=== PATIENT | male | born 1930 | race Caucasian/White ===

== ENCOUNTER 2020-01-25 11:03 | Inpatient (IN) | payer OTHER ==
[~2020-01-25] VITALS: Ht 172.7 cm; Wt 79.0 kg
[2020-01-25] MEDS ORDERED: SODIUM CHLORIDE 0.9% 1,000 ML IV ONE ×2 (11:30)
[2020-01-25] MEDS ORDERED: PANTOPRAZOLE 40 MG/10 ML VIAL INJ IV ONE ×2 (11:30→13:00)
[2020-01-25 11:44] LABS: Basophils # (auto) 0 10 ^3/uL (0-0.2); Basophils % (auto) 0.2 % (0.0-2.0); Eosinophils # (auto) 0.1 10 ^3/uL (0-0.8); Eosinophils % (auto) 1.4 % (0.0-7.0); Hemoglobin 11.2 g/dL (13.5-17.5); Lymphocytes # (auto) 0.9 10 ^3/uL (0.4-5.4); Mean Corpuscular Hemoglobin 32.4 pg (28.0-32.0); Mean Corpuscular Hgb Conc. 32.8 g/dL (32.0-36.0); Mean Corpuscular Volume 98.8 fL (80.0-100.0); Monocytes # (auto) 0.6 10 ^3/uL (0-1.3); Monocytes % (auto) 7.6 % (0.0-12.0); Neutrophils # (auto) 5.8 10 ^3/uL (1.6-8.6); Neutrophils % (auto) 78.8 % (37.0-80.0); Platelet Count (auto) 168 10^3/uL (140-450); Red Blood Cells 3.44 10^6/uL (4.5-5.90); Red Cell Distribution Width 13.4 % (11.8-14.3); White Blood Cell 7.4 10^3/uL (4.4-10.8)
[2020-01-25 11:59] LABS: INR 1.06 (0.9-1.15); Partial Thromboplastin Time 25.4 sec (23.0-31.2)
[2020-01-25 12:04] LABS: Albumin 2.7 g/dL (3.4-5.0); BUN/Creatinine Ratio 17.6; Calcium 7.6 mg/dL (8.5-10.1); Potassium 4.4 mmol/L (3.5-5.1)
[2020-01-25 12:07] LABS: Bilirubin, Total 0.3 mg/dL (0.2-1.0); Total Protein 5.6 g/dL (6.4-8.2)
[2020-01-25] MEDS ORDERED: LACTULOSE 20Gm/30ML SOLN PO PRN (13:00)
[2020-01-25] MEDS ORDERED: ONDANSETRON HCL 4 MG/2 ML VIAL IV PRN (13:00)
[2020-01-25] MEDS ORDERED: NITROGLYCERIN 0.4 MG SL TAB SL PRN (13:00)
[2020-01-25] MEDS ORDERED: MORPHINE SULF INJ 2 MG/ML SYRINGE 1ML IV PRN ×2 (13:00)
[2020-01-25] MEDS ORDERED: traMADol HCL 50 MG TAB PO PRN ×2 (13:00→13:30)
[2020-01-25] MEDS ORDERED: ACETAMINOPHEN 500 MG TAB PO PRN (13:00)
[2020-01-25] MEDS ORDERED: GOLYTELY 4L KIT PO ONE (14:45)
[2020-01-25] MEDS: SODIUM CHLORIDE 0.9% 1,000 ML IV SCH ×2 (15:25→23:11)
[2020-01-25] MEDS ORDERED: METO25TA36 PO (15:46)
[2020-01-25] MEDS ORDERED: LATA0.0019 EACHEYE (15:46)
[2020-01-25] MEDS ORDERED: ASPI-543 PO (15:46)
[2020-01-25] MEDS ORDERED: EZET10TA22 PO (15:46)
[2020-01-25 17:00] VITALS: BP 139/94
[2020-01-25 18:21] LABS: Hematocrit 38.2 % (41.0-53.0); Hemoglobin 12.6 g/dL (13.5-17.5)
--- NOTE | 2020-01-25 19:30 | NUR ---
Opening Shift Note Assumed care of patient, awake and alert. No S/S of distress/SOB or pain. Pt made aware of NPO status after midnight tonight for colonoscopy tomorrow. Safety measures in place, bed in lowest position, bed rails raised x2, call light within reach. All questions and concerns addressed at this time. Instructed on POC and to call for assist PRN, will continue to monitor for changes Q1hr and PRN.
[2020-01-25] MEDS: PANTOPRAZOLE 40 MG TAB PO SCH (22:09)
[2020-01-25 23:13] VITALS: BP 129/79
[2020-01-26 01:00] LABS: Hematocrit 31.6 % (41.0-53.0); Hemoglobin 10.5 g/dL (13.5-17.5)
[2020-01-26 05:49] VITALS: BP 121/79
[2020-01-26] MEDS ORDERED: GOLYTELY 4L KIT PO ONE (06:00)
[2020-01-26 06:29] LABS: Albumin 2.9 g/dL (3.4-5.0); Calcium 7.2 mg/dL (8.5-10.1); Hematocrit 30.8 % (41.0-53.0); Hemoglobin 10.4 g/dL (13.5-17.5); Potassium 3.9 mmol/L (3.5-5.1)
[2020-01-26 06:34] LABS: BUN/Creatinine Ratio 18.7; Bilirubin, Total 0.4 mg/dL (0.2-1.0); Total Protein 5.6 g/dL (6.4-8.2)
[2020-01-26] MEDS ORDERED: SODIUM CHLORIDE LOCK 10 ML ONE (08:30)
[2020-01-26] MEDS ORDERED: diphenhdrAMINE HCL 50 MG/1 ML VL ONE (08:31)
[2020-01-26 08:55] VITALS: BP 137/58
[2020-01-26] MEDS: PANTOPRAZOLE 40 MG TAB PO SCH (09:00)
[2020-01-26] MEDS: SODIUM CHLORIDE 0.9% 1,000 ML IV SCH (09:00)
[2020-01-26] MEDS: MIDAZOLAM HCL 5 MG/ML-1ML VIAL ONE ×2 (09:27→09:32)
[2020-01-26] MEDS: fentaNYL CITRATE 100 MCG/2 ML VL ONE ×2 (09:27→09:32)
[2020-01-26 13:05] VITALS: BP 120/77
== END 2020-01-26 15:00 | disposition home or self-care (01) | DRG 378 ==
LOC: ER 11:03 → EDBD 11:03 → TELE 11:04 → TELE-WESTW 17:20
PROVIDERS: ADMIT Internal Medicine; ATTEND Internal Medicine
PROC: 0DBB8ZX Excision of Ileum, Via Natural or Artificial Opening Endoscopic, Diagnostic (ICD-10-PCS; 2020-01-26)
PROC: 0DBC8ZX Excision of Ileocecal Valve, Via Natural or Artificial Opening Endoscopic, Diagnostic (ICD-10-PCS; 2020-01-26)
PROC: 0DBH8ZX Excision of Cecum, Via Natural or Artificial Opening Endoscopic, Diagnostic (ICD-10-PCS; 2020-01-26)
PROC: 0DBL8ZX Excision of Transverse Colon, Via Natural or Artificial Opening Endoscopic, Diagnostic (ICD-10-PCS; principal; 2020-01-26 09:24)
DX: K57.31 Diverticulosis of large intestine without perforation or abscess with bleeding (principal); D62 Acute posthemorrhagic anemia; N17.9 Acute kidney failure, unspecified; K63.5 Polyp of colon; K62.5 Hemorrhage of anus and rectum; R00.1 Bradycardia, unspecified; Z20.828 Contact with and (suspected) exposure to other viral communicable diseases; I12.9 Hypertensive chronic kidney disease with stage 1 through stage 4 chronic kidney disease, or unspecified chronic kidney disease; N18.9 Chronic kidney disease, unspecified; E78.5 Hyperlipidemia, unspecified; Z87.891 Personal history of nicotine dependence; Z79.899 Other long term (current) drug therapy; Z79.891 Long term (current) use of opiate analgesic; Z79.01 Long term (current) use of anticoagulants
CPT/HCPCS: 36415; 71045; 80053; 82378; 83880; 84484; 85014; 85018; 85025; 85045; 85610; 85730; 86850; 86900; 86901; 96361; 96374; 99291; C9113; G0378; J2250

== ENCOUNTER 2020-02-04 23:43 | Inpatient (IN) | payer OTHER ==
[~2020-02-04] VITALS: Ht 175.3 cm; Wt 83.4 kg
[~2020-02-04 23:43] MED LIST: EZET10TA22 PO; LATA0.0019 EACHEYE; METO25TA36 PO
[2020-02-05 00:34] LABS: Basophils # (auto) 0 10 ^3/uL (0-0.2); Basophils % (auto) 0.3 % (0.0-2.0); Eosinophils # (auto) 0.1 10 ^3/uL (0-0.8); Hemoglobin 8.4 g/dL (13.5-17.5); Lymphocytes # (auto) 0.6 10 ^3/uL (0.4-5.4); Monocytes % (auto) 7.2 % (0.0-12.0)
[2020-02-05 00:35] LABS: Eosinophils % (auto) 0.9 % (0.0-7.0); Hematocrit 24.5 % (41.0-53.0); Mean Corpuscular Hemoglobin 34.2 pg (28.0-32.0); Mean Corpuscular Hgb Conc. 34.4 g/dL (32.0-36.0); Mean Corpuscular Volume 99.3 fL (80.0-100.0); Monocytes # (auto) 0.6 10 ^3/uL (0-1.3); Neutrophils # (auto) 6.5 10 ^3/uL (1.6-8.6); Neutrophils % (auto) 83.6 % (37.0-80.0); Platelet Count (auto) 208 10^3/uL (140-450); Red Blood Cells 2.46 10^6/uL (4.5-5.90); Red Cell Distribution Width 13.9 % (11.8-14.3); White Blood Cell 7.8 10^3/uL (4.4-10.8)
[2020-02-05 00:52] LABS: Albumin 2.9 g/dL (3.4-5.0); Calcium 7.9 mg/dL (8.5-10.1); Potassium 4.3 mmol/L (3.5-5.1)
[2020-02-05 01:00] LABS: Bilirubin, Total 0.2 mg/dL (0.2-1.0); Total Protein 5.6 g/dL (6.4-8.2)
[2020-02-05] MEDS ORDERED: SODIUM CHLORIDE 0.9% 500 ML IV ONE (02:45)
[2020-02-05] MEDS ORDERED: OCTREOTIDE ACETATE 100 MCG in SODIUM CHL 0.9% 50 ML IV ONE (03:15)
[2020-02-05] MEDS ORDERED: OCTREOTIDE ACETATE 500 MCG in SODIUM CHL 0.9% 99 ML IV SCH (03:15)
[2020-02-05] MEDS ORDERED: OCTREOTIDE ACETATE 100 MCG/ML VL ONE (03:47)
[2020-02-05] MEDS ORDERED: OCTREOTIDE ACETATE 500 MCG/ML VL ONE (03:47)
[2020-02-05] MEDS ORDERED: PIPERACILLIN-TAZOB 3.375GM 100 ML IV ONE (06:00)
[2020-02-05] MEDS ORDERED: VANCOMYCIN 1GM/250ML 250 ML IV ONE (06:00)
[2020-02-05 06:29] LABS: Hematocrit 21.8 % (41.0-53.0); Hemoglobin 7.2 g/dL (13.5-17.5)
[2020-02-05] MEDS ORDERED: NITROGLYCERIN 0.4 MG SL TAB SL PRN (07:00)
[2020-02-05] MEDS ORDERED: MORPHINE SULF INJ 2 MG/ML SYRINGE 1ML IV PRN (07:00)
[2020-02-05] MEDS: SODIUM CHLORIDE 0.9% 1,000 ML IV SCH ×2 (07:13→21:03)
[2020-02-05 07:59] LABS: INR 1.02 (0.9-1.15); Partial Thromboplastin Time 23.2 sec (23.0-31.2)
[2020-02-05] MEDS ORDERED: cefTRIAXone 1GM/50ML D5W 50 ML IV SCH (09:00)
[2020-02-05] MEDS ORDERED: PANTOPRAZOLE 40 MG/10 ML VIAL INJ IV SCH (10:00)
[2020-02-05 12:20] LABS: Hematocrit 24.7 % (41.0-53.0)
[2020-02-05] MEDS ORDERED: GOLYTELY 4L KIT PO ONE (12:30)
[2020-02-05 13:00] VITALS: BP 127/71
[2020-02-05 13:15] VITALS: BP 113/71
[2020-02-05] MEDS ORDERED: metroNIDAZOLE 500MG/100ML 100 ML IV SCH (14:00)
[2020-02-05 14:25] VITALS: BP 116/74
--- NOTE | 2020-02-05 17:01 | NUR ---
Telemetry admit from ER THAIS MCKEON admitted to Telemetry unit after SBAR received. Patient oriented to DENNYS BERNAL RN primary RN, unit, room, bed, and unit policies regarding patient care and visiting hours. Patient now on continuous telemetry monitoring, tele box # [id number] and telemetry reading on arrival to unit is . Patient placed on bedside oxygen, weighed by bedscale and encouraged to call if they need something. All questions and concerns addressed, patient verbalized understanding.
[2020-02-05 18:11] VITALS: BP 111/70
--- NOTE | 2020-02-05 18:50 | NUR ---
Closing note Pt. resting in bed. No s/s of distress noted. Care endorsed.
--- NOTE | 2020-02-05 19:35 | NUR ---
Opening Shift Note Assumed care of patient, awake and A/O x 4. No S/S of distress/SOB or pain. Bed lowered and locked side rails up x 2 call light and bedside table are within reach. Tele box matches Pt all leads are in correct position. Instructed on POC and to call for assist PRN, will continue to monitor for changes Q1hr and PRN.
[2020-02-05 20:00] VITALS: BP 106/72
[2020-02-06 05:00] VITALS: BP 118/73
[2020-02-06] MEDS ORDERED: GOLYTELY 4L KIT PO ONE (06:00)
[2020-02-06 06:20] LABS: Basophils # (auto) 0 10 ^3/uL (0-0.2); Eosinophils # (auto) 0.2 10 ^3/uL (0-0.8); Lymphocytes # (auto) 0.9 10 ^3/uL (0.4-5.4)
[2020-02-06 06:32] LABS: Basophils % (auto) 0.3 % (0.0-2.0); Eosinophils % (auto) 3.5 % (0.0-7.0); Hematocrit 24.6 % (41.0-53.0); Lymphocytes % (auto) 13.4 % (10.0-50.0); Mean Corpuscular Hemoglobin 32.1 pg (28.0-32.0); Mean Corpuscular Hgb Conc. 32.7 g/dL (32.0-36.0); Mean Corpuscular Volume 98.2 fL (80.0-100.0); Monocytes # (auto) 0.6 10 ^3/uL (0-1.3); Monocytes % (auto) 8.7 % (0.0-12.0); Neutrophils # (auto) 5.1 10 ^3/uL (1.6-8.6); Neutrophils % (auto) 74.1 % (37.0-80.0); Nucleated Red Blood Cells % 0.1 %; Platelet Count (auto) 196 10^3/uL (140-450); Red Cell Distribution Width 15.2 % (11.8-14.3); White Blood Cell 6.9 10^3/uL (4.4-10.8)
[2020-02-06 06:41] LABS: Calcium 7.8 mg/dL (8.5-10.1); Potassium 4.3 mmol/L (3.5-5.1)
[2020-02-06 06:51] LABS: BUN/Creatinine Ratio 17.6
--- NOTE | 2020-02-06 07:40 | NUR ---
Opening Note Received report from police shift commander RN. Patient is resting in bed with eyes closed, no signs or symptoms of distress noted at this time. Patient is on room air, respirations even and unlabored. Patient is NPO for scheduled procedure. Bed in low and locked position, call light within reach. Will continue to monitor Q1 hour and PRN.
[2020-02-06] MEDS ORDERED: SODIUM CHLORIDE LOCK 10 ML ONE (08:57)
[2020-02-06] MEDS ORDERED: diphenhdrAMINE HCL 50 MG/1 ML VL ONE (08:58)
[2020-02-06 09:00] VITALS: BP 128/72
--- NOTE | 2020-02-06 10:45 | NUR ---
Patient taken down to pre-op
[2020-02-06] MEDS: MIDAZOLAM HCL 5 MG/ML-1ML VIAL ONE ×2 (11:51→11:58)
[2020-02-06] MEDS: fentaNYL CITRATE 100 MCG/2 ML VL ONE ×2 (11:51→11:58)
--- NOTE | 2020-02-06 13:45 | NUR ---
Patient back to room Patient is s/p colonoscopy. Patient is awake, alert and oriented x4. Vital signs within normal limits. Patient denies pain or shortness of breath at this time. Bed in low and locked position, pako light within reach. Will continue to monitor Q1 hour and PRN.
[2020-02-06] MEDS: SODIUM CHLORIDE 0.9% 1,000 ML IV SCH ×2 (16:26→23:00)
[2020-02-06 17:00] VITALS: BP 139/76
--- NOTE | 2020-02-06 17:35 | NUR ---
Dr. Dumont at bedside MD at bedside discussing plan of care with patient and this RN. New orders received for CBC and BMP in them morning, and physical therapy. Will implement new orders, will continue to monitor Q1 hour and PRN.
--- NOTE | 2020-02-06 19:10 | NUR ---
Closing Note Report given to maintenance mechanic 2nd shift RN. No signs or symptoms of distress noted at this time.
[2020-02-06 22:00] VITALS: BP 133/87
[2020-02-07 05:00] VITALS: BP 119/74
[2020-02-07 05:53] LABS: Basophils # (auto) 0 10 ^3/uL (0-0.2); Basophils % (auto) 0.4 % (0.0-2.0); Eosinophils # (auto) 0.2 10 ^3/uL (0-0.8); Hematocrit 21.1 % (41.0-53.0); Hemoglobin 7.2 g/dL (13.5-17.5); Lymphocytes # (auto) 0.9 10 ^3/uL (0.4-5.4); Lymphocytes % (auto) 17.4 % (10.0-50.0); Mean Corpuscular Hemoglobin 33.4 pg (28.0-32.0); Mean Corpuscular Hgb Conc. 34.3 g/dL (32.0-36.0); Mean Corpuscular Volume 97.3 fL (80.0-100.0); Monocytes # (auto) 0.6 10 ^3/uL (0-1.3); Monocytes % (auto) 10.5 % (0.0-12.0); Neutrophils # (auto) 3.6 10 ^3/uL (1.6-8.6); Neutrophils % (auto) 67.7 % (37.0-80.0); Platelet Count (auto) 172 10^3/uL (140-450); Red Blood Cells 2.17 10^6/uL (4.5-5.90); Red Cell Distribution Width 14.8 % (11.8-14.3); White Blood Cell 5.3 10^3/uL (4.4-10.8)
[2020-02-07 06:12] LABS: Calcium 7.2 mg/dL (8.5-10.1); Potassium 3.7 mmol/L (3.5-5.1)
[2020-02-07 06:14] LABS: BUN/Creatinine Ratio 13.7
[2020-02-07 07:09] LABS: Urine WBC None Seen /hpf (0 - 3)
[2020-02-07 07:19] LABS: Urine Bacteria NONE SEEN /hpf (None Seen); Urine Blood Negative /uL (Negative); Urine Specific Gravity 1.012 (1.001-1.035)
[2020-02-07 08:59] VITALS: BP 139/83
[2020-02-07] MEDS: SODIUM CHLORIDE 0.9% 1,000 ML IV SCH (12:20)
[2020-02-07 13:00] VITALS: BP 143/87
--- NOTE | 2020-02-07 14:39 | NUR ---
Nutrition Assessment Notes please see attached link fro complete assessment Est Energy needs BW 79 [id number] kcals (23-25 kcal/kgBW), Est Protein needs: 79-86 gms/day (1.0-1.1 gm/kgBW). Will continue to monitor and reassess prn. Addendum: 02/07/20 at [address] Amended: Links added.
--- NOTE | 2020-02-07 16:00 | NUR ---
Dr. Dumont at bed side
--- NOTE | 2020-02-07 16:20 | NUR ---
MD Dumont notified of elevated BP, BP PRN obtained, review order hx.
[2020-02-07] MEDS ORDERED: cloNIDine HCL 0.1 MG TAB PO PRN (16:30)
[2020-02-07 16:59] VITALS: BP 166/86
--- NOTE | 2020-02-07 19:35 | NUR ---
Opening Shift Note Assumed care of patient, awake and A/O x 4. No S/S of respiratory distress. Respirations are regular and non-labored. Pt denies pain at this time. Bed lowered and locked, side rails up x 2, call light and bedside table are within reach. Tele box matches to cafeteria monitor. Leads are in correct position. Instructed on POC and to call for assistance as needed. Will continue to monitor for changes Q1hr and PRN.
[2020-02-07 20:00] VITALS: BP 143/91
[2020-02-07 22:00] VITALS: BP 136/88
[2020-02-08] VITALS (44 sets, daily range): BP systolic 78–181; BP diastolic 40–91
[2020-02-08] MEDS: SODIUM CHLORIDE 0.9% 1,000 ML IV SCH ×3 (01:40→21:04)
[2020-02-08 05:36] LABS: Hemoglobin 7.2 g/dL (13.5-17.5); Platelet Count (auto) 179 10^3/uL (140-450); White Blood Cell 5.6 10^3/uL (4.4-10.8)
[2020-02-08 05:48] LABS: Basophils # (auto) 0 10 ^3/uL (0-0.2); Basophils % (auto) 0.4 % (0.0-2.0); Eosinophils # (auto) 0.2 10 ^3/uL (0-0.8); Eosinophils % (auto) 3.9 % (0.0-7.0); Hematocrit 21.2 % (41.0-53.0); Lymphocytes # (auto) 0.8 10 ^3/uL (0.4-5.4); Lymphocytes % (auto) 14.2 % (10.0-50.0); Mean Corpuscular Hemoglobin 32.9 pg (28.0-32.0); Mean Corpuscular Hgb Conc. 33.8 g/dL (32.0-36.0); Mean Corpuscular Volume 97.5 fL (80.0-100.0); Monocytes # (auto) 0.6 10 ^3/uL (0-1.3); Monocytes % (auto) 10.8 % (0.0-12.0); Neutrophils # (auto) 3.9 10 ^3/uL (1.6-8.6); Neutrophils % (auto) 70.7 % (37.0-80.0); Red Blood Cells 2.17 10^6/uL (4.5-5.90); Red Cell Distribution Width 15.2 % (11.8-14.3)
[2020-02-08 06:10] LABS: BUN/Creatinine Ratio 8.7; Calcium 7.6 mg/dL (8.5-10.1); Magnesium 2.6 mg/dL (1.6-2.6); Potassium 3.7 mmol/L (3.5-5.1)
--- NOTE | 2020-02-08 11:00 | NUR ---
assessment Patient is a 89 year old male who is alert and oriented. Patients cognitive abilities are intact. Prior to admission patient lived home with family and functioned independently. Patient informed me he is able to care for his own ADLs. Per patient he will return home to his prior living arrangements post discharge and family will transport him home. 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 Patients PCP is Dr Bell. Patient informed me he has no need for DME. I informed patient of his consult for home health and home eval. Patient informed me he does not need it, but if doctor wants a home eval he is agreeable. MD order has been sent to [facility]. Estela disease case manager rn will get auth for home health. I informed patient he has a right to speak to a long term care social worker regarding all care. I informed patient he has a right to participate in any and all discharge planning. Patient does not have a POA and advanced directive. I have offered patient information on POA and advanced directives. I informed the patient the advantages and benefits of having an Advanced Directive. Patient verbalized understanding and agreed to discharge plan. Addendum: 02/08/20 at 1710 by Clotilde Olson Amended: Links added.
--- NOTE | 2020-02-08 11:26 | NUR ---
paged Dr. Mosher re: pt had BM, noted blood clots and bright red stools.
--- NOTE | 2020-02-08 11:46 | NUR ---
SPOKE WITH DR. DOMINGUEZ, MADE AWARE PT'S HGB WAS 7.2 AND 1 UNIT OF PRBC WAS GIVEN, PT HAD 3 BM, NOTED BLOOD CLOTS, PT'S DEMANDING TRANSFER TO [facility] SOON POSSIBLE. RECEIVED ORDER TO PUT ORDER TO TRANSFER TO [facility] FOR CECUM POLYP REMOVAL.
--- NOTE | 2020-02-08 11:50 | NUR ---
BLOOD TRANSFUSION ENDED, NO TRANSFUSION REACTION NOTED.
--- NOTE | 2020-02-08 13:05 | NUR ---
low bood pressure Spoke with Dr. Dumont, made aware pt's BP 78/48, HR 68, pt had 5x BM with blood clot, received order to give NS 1 liter bolus, stat CBC and transfer to ICU.
[2020-02-08] MEDS ORDERED: SODIUM CHLORIDE 0.9% 1,000 ML IV ONE (13:15)
--- NOTE | 2020-02-08 13:15 | NUR ---
Charge nurse Juwan made aware that Dr. Dumont ordered to transfer pt to ICU.
--- NOTE | 2020-02-08 13:30 | NUR ---
report called to RAZA Hyde in ICU.
--- NOTE | 2020-02-08 13:34 | NUR ---
Dr. Mosher notified, left a message pt had 5x BM with blood clots, BP 78/48mmhg, ppt will be transferred to ICU bed 104.
[2020-02-08 13:49] LABS: Hematocrit 21.1 % (41.0-53.0); Hemoglobin 7.1 g/dL (13.5-17.5); Mean Corpuscular Hemoglobin 32.7 pg (28.0-32.0); Mean Corpuscular Hgb Conc. 33.8 g/dL (32.0-36.0); Mean Corpuscular Volume 96.6 fL (80.0-100.0); Platelet Count (auto) 169 10^3/uL (140-450); Red Blood Cells 2.19 10^6/uL (4.5-5.90); Red Cell Distribution Width 15.7 % (11.8-14.3)
--- NOTE | 2020-02-08 13:50 | NUR ---
TELE PT TRANSFER TO ICU Report received by Mary Ellen PERSONboiler house supervisor. THAIS MCKEON transferred to 104 via rney on professor of fine art and portable 02. All patient medications and personal belongings transferred with patient to receiving floor. Patient connected to bedside monitor. VS stable at this time. Physical assessment complete. Patient denies pain or distress at this time. Bed locked in lowest position. Call light and personal belongings within reach. Will continue to monitor.
--- NOTE | 2020-02-08 13:57 | NUR ---
1234 02/08/20 - Faxed to [facility] transfer center at [phone], face sheet, order to transfer to higher level of care ([facility]) fir cecum polyp removal, H/P, labs, meds, GI consults, imaging. AT 1330 received a call back from [facility] tranfer center talent acquisition coordinator Savanna who stated current Medicine Services are at capacity and are not accepting any transfers at this time. Will inform MD and unit of the above info.
[2020-02-08 14:25] LABS: Band Neutrophils % (manual) 0; Basophils % (manual) 0 (0.0-2.0); Metamyelocytes % 0; Myelocytes % 0
[2020-02-08 14:26] LABS: Blast Cells 0; Promyelocytes % 0; Reactive Lymphocytes 0
--- NOTE | 2020-02-08 14:40 | NUR ---
FAMILY PATIENTS VARSHA CALLED FOR UPDATE. ALL QUESTIONS AND CONCERNS ADDRESSED.
--- NOTE | 2020-02-08 14:42 | NUR ---
BLOOD PRODUCT ONE UNIT PRBC ADMINISTRATION BEGUN. VS STABLE. NO REACTIONS NOTED.
--- NOTE | 2020-02-08 14:45 | NUR ---
MD VISIT AT BEDSIDE CONSENTING PATIENT FOR COLONOSCOPY TODAY. MD AWARE OF VS AND BLOOD TRANSFUSION.
[2020-02-08 15:14] LABS: Eosinophils % (manual) 1 (0-7); Lymphocytes % (manual) 9 (10.0-50.0); Monocytes % (manual) 5 (0-12)
[2020-02-08] MEDS ORDERED: NALOXONE HCL 0.4 MG/ML VIAL ONE (15:26)
[2020-02-08] MEDS ORDERED: FLUMAZENIL 0.1 MG/ML INJ 10ML MDV IV ONE (15:26)
[2020-02-08] MEDS ORDERED: MIDAZOLAM HCL 5 MG/ML-1ML VIAL ONE (15:27)
[2020-02-08] MEDS ORDERED: diphenhdrAMINE HCL 50 MG/1 ML VL ONE (15:27)
[2020-02-08] MEDS ORDERED: fentaNYL CITRATE 100 MCG/2 ML VL ONE (15:27)
--- NOTE | 2020-02-08 15:44 | NUR ---
ENEMA FLEET ENEMA ADMINISTERED PER ORDER FOR PREP FOR COLONOSCOPY. O.R. TEAM AT BEDSIDE. CLEAR, BRIGHT RED, LIQUID ELIMINATED.
--- NOTE | 2020-02-08 15:52 | NUR ---
BEDSIDE COLONOSCOPY DR. MCKINNEY AT BEDSIDE. CONSENTS SIGNED AND PLACED IN CHART. VS STABLE AT THIS TIME. PT POSITIONED ON LEFT SUPINE.
--- NOTE | 2020-02-08 16:21 | NUR ---
IV IV access obtained, via clean sterile technique by inserting 22 gauge catheter at right AC after 1 attempt. IV secured properly. No trauma to site. Patient tolerated well.
--- NOTE | 2020-02-08 17:09 | NUR ---
COVID IN-HOUSE COVID SWAB OBTAINED FOR PRE-OP. SPECIMEN WALKED TO LAB.
--- NOTE | 2020-02-08 17:10 | NUR ---
CARDIOLOGY CONSULT ROUNDARNOLDO AT BEDSIDE SPEAKING WITH PATIENT.
--- NOTE | 2020-02-08 19:23 | NUR ---
Report received from RAZA Earl. Patient up-graded to ICU today from Tele due to hypotension and 5 bloody stools. Patient transfused with 1 PRBC today with second Colonoscopy today on unit. Will continue with POC; and, will continue to monitor VS & clinical status.
--- NOTE | 2020-02-08 19:37 | NUR ---
REPORT REPORT GIVEN TO ROSALEE PERSON, CARE ENDORSED.
[2020-02-08 20:02] LABS: INR 1.08 (0.9-1.15); Partial Thromboplastin Time 23.8 sec (23.0-31.2)
--- NOTE | 2020-02-08 21:04 | NUR ---
IVF NS 1000 ML bag changed to new bag and resumed at 75 ml/hr.
--- NOTE | 2020-02-08 23:05 | NUR ---
Dr. Lal at bedside for evaluation. MD states to watch patient during the night and observe for low BP and/or rectal bleeding.
--- NOTE | 2020-02-08 23:19 | NUR ---
PCXR done at bedside.
[2020-02-09] VITALS (80 sets, daily range): BP systolic 83–163; BP diastolic 45–107
[2020-02-09 03:39] LABS: Basophils # (auto) 0 10 ^3/uL (0-0.2); Lymphocytes # (auto) 0.9 10 ^3/uL (0.4-5.4); Lymphocytes % (auto) 13.9 % (10.0-50.0); Monocytes # (auto) 0.5 10 ^3/uL (0-1.3)
[2020-02-09 03:43] LABS: Basophils % (auto) 0.3 % (0.0-2.0); Eosinophils # (auto) 0.1 10 ^3/uL (0-0.8); Eosinophils % (auto) 2.4 % (0.0-7.0); Hematocrit 20.3 % (41.0-53.0); Mean Corpuscular Hemoglobin 32.9 pg (28.0-32.0); Mean Corpuscular Hgb Conc. 34.5 g/dL (32.0-36.0); Mean Corpuscular Volume 95.3 fL (80.0-100.0); Monocytes % (auto) 8.3 % (0.0-12.0); Neutrophils # (auto) 4.6 10 ^3/uL (1.6-8.6); Neutrophils % (auto) 75.1 % (37.0-80.0); Nucleated Red Blood Cells % 0.1 %; Platelet Count (auto) 142 10^3/uL (140-450); Red Blood Cells 2.13 10^6/uL (4.5-5.90); White Blood Cell 6.2 10^3/uL (4.4-10.8)
[2020-02-09 03:56] LABS: Magnesium 2.1 mg/dL (1.6-2.6); Potassium 3.5 mmol/L (3.5-5.1)
[2020-02-09 03:58] LABS: BUN/Creatinine Ratio 6.5
[2020-02-09] MEDS ORDERED: MAGNESIUM CITRATE SOLUTION 300 ML BTL PO ONE (09:30)
[2020-02-09] MEDS ORDERED: TPN PER PHARMACY 0 ML IV SCH (09:45)
[2020-02-09] MEDS ORDERED: FUROSEMIDE 20 MG/2 ML VIAL IV ONE (10:30)
[2020-02-09] MEDS: SODIUM CHLORIDE 0.9% 1,000 ML IV SCH (11:03)
--- NOTE | 2020-02-09 11:15 | NUR ---
Nutrition Followup Notes Wt: 80.8 kg Pt was sleeping with no family by bedside. per records pt with GI bleed recent bleeding episode noted. pt to have colonoscopy. pt is currently NPO to begin PN support soon per RN Est Energy needs BW 79 [id number] kcals (23-25 kcal/kgBW), Est Protein needs: 79-86 gms/day (1.0-1.1 gm/kgBW). Will continue to monitor and reassess prn. LABS: CA 7.0 L. rest lab wnl for today GI: Pt had 1 BM on 02/01 per RN doc. BS: 21 low risk. Refer to wound assessment report for full details. PES: Altered nutrition related lab values r/t current chronic medical condition aeb mod hypoalb Comments Will continue to monitor NPO status, skin status, pertinent labs and weight trends. Will f/u in 2-3 days. 1) advance PN support to meet > 75% of needs. 2) advance diet as medically feasible. 3) Continue current plan of care
[2020-02-09 11:39] LABS: Albumin 2.8 g/dL (3.4-5.0); Calcium 7.5 mg/dL (8.5-10.1); Magnesium 2.3 mg/dL (1.6-2.6); Potassium 3.5 mmol/L (3.5-5.1)
[2020-02-09 11:43] LABS: BUN/Creatinine Ratio 7.5; Bilirubin, Total 0.6 mg/dL (0.2-1.0); Phosphorus 2.2 mg/dL (2.5-4.90); Pre Albumin 14.9 mg/dL (20.0-40.0); Total Protein 5.2 g/dL (6.4-8.2)
--- NOTE | 2020-02-09 12:19 | NUR ---
ICC line placement Patient/Patient significant other educated on need for PICC line placement. All risks and benefits explained and all questions and concerns addressed prior to procedure. Noted past medical history and allergies with no contraindications. INR and Plt counts within acceptable range. 5 fr PICC line inserted via right basilic vein using [employer] US and Tip Location System. Sterile technique with maximum barrier precautions utilized. Blood return obtained from each of the three lumens and each flushed easily with NS using proper technique. PICC secured with Stat-lock; biodisc and occlusive dressing applied. Stat portable chest x-ray obtained for PICC tip placement. *Baseline Arm Circumference 27 cm Internal Length 39 cm External Length 0 cm PICC lot # [id number]
[2020-02-09] MEDS ORDERED: LIDOCAINE 1% (LOCAL ANESTH.) PF 5ml SDV ID ONE (12:30)
--- NOTE | 2020-02-09 12:42 | NUR ---
OK to use PICC line Xray completed. OK to use PICC line. Primary RN Rosa notified.
[2020-02-09] MEDS ORDERED: POTASSIUM PHOSPHATE 11 MEQ in SODIUM CHL 0.9% 100 ML IV ONE (13:00)
--- NOTE | 2020-02-09 15:00 | NUR ---
1ST UNIT OF PRBC STARTED AND PATIENT TOLERATING WELL.
--- NOTE | 2020-02-09 16:56 | NUR ---
PATIENT WAS GIVEN MAG CITRATE AND PATIENT PASSING LIQUID BLOOD WITH SMALL CLOTS. TELEPHONE CALL TO DR. HEATON AND GAVE UPDATE ON THE TOTAL LIQUID STOOL 1900 CC.
[2020-02-09 18:23] LABS: Basophils # (auto) 0 10 ^3/uL (0-0.2); Basophils % (auto) 0.4 % (0.0-2.0); Hemoglobin 8.4 g/dL (13.5-17.5); Lymphocytes # (auto) 0.6 10 ^3/uL (0.4-5.4); Monocytes # (auto) 0.6 10 ^3/uL (0-1.3)
[2020-02-09 18:25] LABS: Eosinophils # (auto) 0.1 10 ^3/uL (0-0.8); Eosinophils % (auto) 2.1 % (0.0-7.0); Lymphocytes % (auto) 9.4 % (10.0-50.0); Mean Corpuscular Hgb Conc. 32.4 g/dL (32.0-36.0); Mean Corpuscular Volume 95.4 fL (80.0-100.0); Monocytes % (auto) 8.1 % (0.0-12.0); Neutrophils # (auto) 5.5 10 ^3/uL (1.6-8.6); Platelet Count (auto) 164 10^3/uL (140-450); Red Blood Cells 2.73 10^6/uL (4.5-5.90); Red Cell Distribution Width 15.4 % (11.8-14.3); White Blood Cell 6.9 10^3/uL (4.4-10.8)
--- NOTE | 2020-02-09 18:41 | NUR ---
2ND UNIT OF PRBC STARTED. SBP DECREASED TO 98/56 BUT PATIENT WAS MEDICATED WITH LASIX IN BETWEEN UNITS OF 20 MG.
--- NOTE | 2020-02-09 18:43 | NUR ---
FENG CATHETER SIZE [address] HEATON. DRAINING YELLOW PAULETTE COLOR URINE.
--- NOTE | 2020-02-09 19:00 | NUR ---
Opening notes Assumed care, A/O x 4 with no signs of distress and no c/o pain. On room air, SPO2 99%, respirations even and unlabored. BT going on, PIV and PICC line access patent and intact, lopez catheter draining to a clear, yellow urine. Bed in lowest position with side rails up, bed alarm on. Encouraged to call if he needs something. Will continue care and monitoring.
[2020-02-09] MEDS ORDERED: PPN PER PHARMACY IV NR ×9 (20:00)
--- NOTE | 2020-02-09 20:00 | NUR ---
Elimination Bloody liquid stools noted through the bedpan, cleansed and kept dry and comfortable. Repositioned for comfort.
--- NOTE | 2020-02-09 20:25 | NUR ---
PPN started @ 45 ml/hr
--- NOTE | 2020-02-09 20:35 | NUR ---
Consents Consents for surgery and anesthesia secured. Will complete the pre-op checklist.
--- NOTE | 2020-02-09 21:15 | NUR ---
Blood transfusion completed, VS taken, no reaction noted. Pt remained stable.
[2020-02-09] MEDS: SODIUM CHLOR 0.9% PF (SALINE LOCK) 10ML VIAL/SYR IV SCH (21:49)
--- NOTE | 2020-02-09 23:12 | NUR ---
Accucheck 134, insulin held, pt NPO as pre-op
--- NOTE | 2020-02-09 23:13 | NUR ---
Blood draw done for CBC post BT, specimen sent to lab via bullet
[2020-02-09 23:55] LABS: Basophils # (auto) 0 10 ^3/uL (0-0.2); Basophils % (auto) 0.3 % (0.0-2.0); Eosinophils # (auto) 0.1 10 ^3/uL (0-0.8); Lymphocytes # (auto) 0.6 10 ^3/uL (0.4-5.4); Monocytes # (auto) 0.5 10 ^3/uL (0-1.3); Neutrophils # (auto) 6.5 10 ^3/uL (1.6-8.6); Nucleated Red Blood Cells % 0.1 %; Red Cell Distribution Width 15.3 % (11.8-14.3); White Blood Cell 7.8 10^3/uL (4.4-10.8)
[2020-02-09 23:56] LABS: Eosinophils % (auto) 1.6 % (0.0-7.0); Hematocrit 23.9 % (41.0-53.0); Hemoglobin 8.2 g/dL (13.5-17.5); Lymphocytes % (auto) 7.5 % (10.0-50.0); Mean Corpuscular Hemoglobin 32.5 pg (28.0-32.0); Mean Corpuscular Hgb Conc. 34.2 g/dL (32.0-36.0); Mean Corpuscular Volume 95.2 fL (80.0-100.0); Neutrophils % (auto) 83.6 % (37.0-80.0); Platelet Count (auto) 148 10^3/uL (140-450); Red Blood Cells 2.51 10^6/uL (4.5-5.90)
[2020-02-10] VITALS (81 sets, daily range): BP systolic 65–138; BP diastolic 26–83
[2020-02-10] MEDS ORDERED: DEXTROSE (50%) 50ML SYRG IV SCH
--- NOTE | 2020-02-10 02:13 | NUR ---
paged Paged primary provider and spoke with Dr. Luna, updated on pt's status, bm with bloody, liquid stools x 4 episodes, hgb 8.2, SBP 70's to 80's and upcoming surgery today. T.O received to give IV bolus NS 500 ml and may start levophed if still w/ low BP and keep the MAP > 65, repeat CBC as ordered. Will carry out orders.
[2020-02-10] MEDS ORDERED: SODIUM CHLORIDE 0.9% 500 ML IV ONE (02:15)
--- NOTE | 2020-02-10 02:30 | NUR ---
Re- BP = 102/56, HR= 75, NS 500ml IV bolus given
[2020-02-10] MEDS: SODIUM CHLORIDE 0.9% 1,000 ML IV SCH (03:00)
[2020-02-10 04:28] LABS: Hematocrit 18.9 % (41.0-53.0)
--- NOTE | 2020-02-10 04:30 | NUR ---
Hygiene/Elimination Large amount of liquid, bloody stools with clots noted. Full bath w/ CHG done, complete linens and gown changed. Repositioned for comfort.
[2020-02-10 04:43] LABS: Hemoglobin 6.4 g/dL (13.5-17.5)
[2020-02-10 04:45] LABS: Calcium 6.5 mg/dL (8.5-10.1); Magnesium 2.3 mg/dL (1.6-2.6); Potassium 3.5 mmol/L (3.5-5.1)
[2020-02-10 04:49] LABS: BUN/Creatinine Ratio 10.9; Bilirubin, Total 0.4 mg/dL (0.2-1.0); Phosphorus 3.4 mg/dL (2.5-4.90); Total Protein 3.7 g/dL (6.4-8.2)
--- NOTE | 2020-02-10 04:49 | NUR ---
Critical lab Received a call from lab and spoke with Charles re: critical hgb 6.4, Hct 18.9
--- NOTE | 2020-02-10 04:50 | NUR ---
paged Paged Dr. María Lal, left a re: critical hgb level. Awaiting call back.
[2020-02-10] MEDS: NOREPINEPHRINE 8 MG/250ML KIT 250 ML IV SCH (05:14)
--- NOTE | 2020-02-10 05:14 | NUR ---
Levophed BP dropped to 70/41, 83/49, HR 78, started levophed @ 2mcg/min. NS 100ml IV bolus given
--- NOTE | 2020-02-10 05:15 | NUR ---
paged Paged Dr. Luna, updated on pt's status and critical hgb 6.4, gave an order to transfuse 2 units of PRBC. Will carry out an order.
[2020-02-10] MEDS: ACCU-CHEK COMFORT CURVE STRIP VI SCH ×5 (06:07→23:37)
--- NOTE | 2020-02-10 06:12 | NUR ---
1 unit of PRBC transfused initially @ 100 ml/hr, will titrate if w/ no reaction, VS taken. Unit verified with another RN.
[2020-02-10] MEDS: InsuLIN REG 1unit/0.01ml Soln (100units/ml) SC SCH ×5 (06:37→23:38)
[2020-02-10] MEDS: SODIUM CHLOR 0.9% PF (SALINE LOCK) 10ML VIAL/SYR IV SCH ×2 (10:00→22:31)
[2020-02-10 10:54] LABS: INR 1.19 (0.9-1.15); Partial Thromboplastin Time 21.7 sec (23.0-31.2)
[2020-02-10] MEDS ORDERED: CALCIUM GLUC 4.65meq/50ml D5AE 50 ML IV ONE (11:00)
[2020-02-10 13:59] LABS: Basophils # (auto) 0 10 ^3/uL (0-0.2); Hemoglobin 7.2 g/dL (13.5-17.5); Lymphocytes # (auto) 0.8 10 ^3/uL (0.4-5.4); Monocytes # (auto) 0.7 10 ^3/uL (0-1.3); Nucleated Red Blood Cells % 0.2 %
[2020-02-10 14:01] LABS: Basophils % (auto) 0.1 % (0.0-2.0); Eosinophils # (auto) 0 10 ^3/uL (0-0.8); Eosinophils % (auto) 0.5 % (0.0-7.0); Hematocrit 21.5 % (41.0-53.0); Lymphocytes % (auto) 9.6 % (10.0-50.0); Mean Corpuscular Hemoglobin 31.5 pg (28.0-32.0); Mean Corpuscular Hgb Conc. 33.4 g/dL (32.0-36.0); Mean Corpuscular Volume 94.2 fL (80.0-100.0); Monocytes % (auto) 8.2 % (0.0-12.0); Neutrophils # (auto) 6.8 10 ^3/uL (1.6-8.6); Neutrophils % (auto) 81.6 % (37.0-80.0); Platelet Count (auto) 116 10^3/uL (140-450); Red Blood Cells 2.28 10^6/uL (4.5-5.90); White Blood Cell 8.4 10^3/uL (4.4-10.8)
[2020-02-10] MEDS ORDERED: fentaNYL CITRATE 100 MCG/2 ML VL ONE (14:28)
[2020-02-10] MEDS ORDERED: ROCURONIUM 10MG/ML 10ML VIAL IV ONE (14:29)
[2020-02-10] MEDS ORDERED: MIDAZOLAM HCL 1MG/1ML-2 ML VIAL ONE ×4 (14:29→16:11)
[2020-02-10] MEDS ORDERED: SUCCINYLCHOLINE CHLORIDE 20 MG/ML 10ML VIAL IV ONE (14:30)
[2020-02-10] MEDS ORDERED: PROPOFOL 10 MG/ML 20 ML IV ONE (14:30)
--- NOTE | 2020-02-10 14:44 | NUR ---
2ND UNIT PRBC GIVEN DR HEATON SCHEDULED PATIENT TO GO TO OR AT 2PM. DR PETE ORDERED SEDATION FOR THE PATIENT AND PATIENT WENT TO OR AT 1430.
[2020-02-10] MEDS ORDERED: SODIUM BICARBONATE 8.4 % INJ 50ML VIAL IV ONE (15:20)
--- NOTE | 2020-02-10 17:45 | NUR ---
Respiratory note: RECEIVED PT FROM OR. PT WAS TRANSPORTED TO ICU BED 104 BY OR TEAM VIA AMBU BAG. PLACED PT ON VENT V4, VENT CONNECTED TO RED OUTLET AND O2 SOURCE. ALARMS ARE SET AND AUDIBLE. AMBU BAG AND MASK AT BEDSIDE. SECURED ETT VIA HOLISTER W/GUARD AT 26CMS AT THE LIP. BS ARE DIMINISHED /CLEAR T/O SXD VIA ETT FOR SMALL CLEAR/WHITE, SPUTUM SAMPLE OBTAINED AND SENT TO LAB. RT NAME AND PAGER ASSIGNMENT WRITTEN ON PTS ROOM BOARD. WILL CONTINUE TO MONITOR Q2H AND NEEDED. RAZA TOTH AT BEDSIDE AND COMMUNICATED ON PLACEMENT AND PARAMETERS.
[2020-02-10] MEDS ORDERED: PROPOFOL 100 ML IV ONE (17:54)
[2020-02-10] MEDS: MIDAZOLAM DRIP 50 mg/50mL 50 ML IV SCH (18:15)
[2020-02-10] MEDS: PROPOFOL 100 ML IV SCH ×2 (18:15→22:31)
[2020-02-10 18:29] LABS: Basophils # (auto) 0.1 10 ^3/uL (0-0.2); Basophils % (auto) 0.8 % (0.0-2.0); Hematocrit 24.7 % (41.0-53.0); Red Blood Cells 2.64 10^6/uL (4.5-5.90); White Blood Cell 17.4 10^3/uL (4.4-10.8)
[2020-02-10 18:31] LABS: Eosinophils # (auto) 0.1 10 ^3/uL (0-0.8); Eosinophils % (auto) 0.4 % (0.0-7.0); Lymphocytes # (auto) 1.2 10 ^3/uL (0.4-5.4); Lymphocytes % (auto) 6.7 % (10.0-50.0); Mean Corpuscular Hemoglobin 30.3 pg (28.0-32.0); Mean Corpuscular Hgb Conc. 32.4 g/dL (32.0-36.0); Mean Corpuscular Volume 93.3 fL (80.0-100.0); Monocytes % (auto) 5.9 % (0.0-12.0); Neutrophils % (auto) 86.2 % (37.0-80.0); Nucleated Red Blood Cells % 0.2 %; Platelet Count (auto) 103 10^3/uL (140-450); Red Cell Distribution Width 14.5 % (11.8-14.3)
--- NOTE | 2020-02-10 18:38 | NUR ---
PATIENT RETURN TO THE ROOM FROM OR INTUBATED RATE OF 12 TV 500, PEEP 5 FIO2 50 % ETT SIZE 8 24 AT THE LIP. PATIENT INCISION DRY AND CLEAN WITH WOUND VAC PATIENT SEDATED WITH PROPOFOL AT 30 MCQ/KG/MIN. PPN STARTED AT 45 CC/HR AND LR AT TKO. CBC WAS ORDERED AND TO TRANSFUSE 1 UNIT IF HGB STILL LOW/DR OCONNOR.
--- NOTE | 2020-02-10 18:50 | NUR ---
ETT WITHDRAWN FROM 26CM AT THE LIP TO 24CM AT THE LIP DUE TO BEDSIDE CRX APPEARANCE ETT TO CLOSE TO FIDELIA. RAZA TOTH COMMUNICATED ON CHANGE.
--- NOTE | 2020-02-10 19:05 | NUR ---
HOSPITALIST PAGED REGARDING ABG RESULTS.
--- NOTE | 2020-02-10 19:10 | NUR ---
PER HOSPITALIST MD BURNETT, REPORT ABG RESULTS TO MD Karlos DOMINGUEZ.
--- NOTE | 2020-02-10 19:15 | NUR ---
Opening notes Assumed care, on vent and sedation with propofol, levophed drip @ 4mcg/min, PICC line patent and intact, lopez catheter draining to a clear, yellow urine, midline abdominal incision and dressing is clean, dry and intact, wound vac noted, SCD's on bilateral legs, PIV's intact. Bed in lowest position with side rails up, bed alarm on. Will continue care.
[2020-02-10] MEDS ORDERED: TPN PER PHARMACY IV NR ×10 (20:00)
--- NOTE | 2020-02-10 20:04 | NUR ---
Respiratory note: AT BEDSIDE FOR ROUTINE VENT CHECK. FIO2 TITRATED TO 40% VIA VENT. RN REGIS AT BEDSIDE AND COMMUNICATED ON O2 CHANGE. WILL CONTINUE TO MONITOR.
--- NOTE | 2020-02-10 21:24 | NUR ---
1 unit of PRBC started after proper x-matching and typing. VS taken, unit verified with Lorie PERSON. Will watch for transfusion reaction
--- NOTE | 2020-02-10 22:10 | NUR ---
Respiratory note: AT BEDSIDE FOR ROUTINE VENT CHECK. FIO2 TITRATED TO 30% VIA VENT. RAZA STACY COMMUNICATED ON O2 CHANGE. NO OTHER VENT CHANGES MADE, WILL CONTINUE TO MONITOR.
--- NOTE | 2020-02-10 23:05 | NUR ---
IV d/c PIV in the LFA noted to be infiltrated, d/c and pressure dressing applied.
--- NOTE | 2020-02-10 23:45 | NUR ---
PICC Line Dressing Changes Dried blood clots from dressing noted. PICC line dressing change done with a sterile technique. Cleansed with chloraprep scrub/betadine. Stat lock, and bio-patch as available. Occlusive dressing applied. Changed claves weekly and post lab draw. See e-MAR for medications given during this visit.
[2020-02-11] VITALS (91 sets, daily range): BP systolic 92–138; BP diastolic 35–85
--- NOTE | 2020-02-11 00:15 | NUR ---
Blood transfusion completed, VS taken, no transfusion reaction noted.
[2020-02-11] MEDS: NOREPINEPHRINE 8 MG/250ML KIT 250 ML IV SCH (02:15)
[2020-02-11] MEDS: PROPOFOL 100 ML IV SCH ×3 (03:00→11:23)
--- NOTE | 2020-02-11 04:04 | NUR ---
Morning care done. linens and gown changed. Oral care done
--- NOTE | 2020-02-11 04:05 | NUR ---
Elimination Small amount of bright red stools noted, hygiene done
[2020-02-11 04:23] LABS: Basophils # (auto) 0 10 ^3/uL (0-0.2); Eosinophils # (auto) 0 10 ^3/uL (0-0.8); Eosinophils % (auto) 0.2 % (0.0-7.0); Mean Corpuscular Volume 90.2 fL (80.0-100.0); White Blood Cell 13.8 10^3/uL (4.4-10.8)
[2020-02-11 04:27] LABS: Basophils % (auto) 0.1 % (0.0-2.0); Hematocrit 24.5 % (41.0-53.0); Hemoglobin 8.1 g/dL (13.5-17.5); Lymphocytes # (auto) 0.7 10 ^3/uL (0.4-5.4); Lymphocytes % (auto) 5.2 % (10.0-50.0); Mean Corpuscular Hemoglobin 29.8 pg (28.0-32.0); Monocytes # (auto) 0.9 10 ^3/uL (0-1.3); Monocytes % (auto) 6.7 % (0.0-12.0); Neutrophils # (auto) 12.1 10 ^3/uL (1.6-8.6); Neutrophils % (auto) 87.8 % (37.0-80.0); Nucleated Red Blood Cells % 0.1 %; Platelet Count (auto) 78 10^3/uL (140-450); Red Blood Cells 2.71 10^6/uL (4.5-5.90)
[2020-02-11 04:39] LABS: Albumin 1.6 g/dL (3.4-5.0); Calcium 6.3 mg/dL (8.5-10.1); Magnesium 2.3 mg/dL (1.6-2.6); Potassium 3.9 mmol/L (3.5-5.1)
[2020-02-11 04:43] LABS: BUN/Creatinine Ratio 11.9; Bilirubin, Total 0.1 mg/dL (0.2-1.0); Phosphorus 3.9 mg/dL (2.5-4.90); Total Protein 3.2 g/dL (6.4-8.2)
[2020-02-11 04:49] LABS: INR 1.13 (0.9-1.15); Partial Thromboplastin Time 26.7 sec (23.0-31.2)
[2020-02-11] MEDS: ACCU-CHEK COMFORT CURVE STRIP VI SCH ×3 (05:54→18:07)
[2020-02-11] MEDS: InsuLIN REG 1unit/0.01ml Soln (100units/ml) SC SCH ×3 (06:02→18:07)
--- NOTE | 2020-02-11 10:00 | NUR ---
WEANED OFF LEVOPHED.
[2020-02-11] MEDS: SODIUM CHLOR 0.9% PF (SALINE LOCK) 10ML VIAL/SYR IV SCH ×2 (10:26→22:00)
[2020-02-11] MEDS: SODIUM BICARBONATE 50ML VIAL 50 ML in SOD CHL 0.45% 1,000 ML IV SCH (10:26)
[2020-02-11] MEDS ORDERED: CALCIUM GLUC 4.65meq/50ml D5AE 50 ML IV ONE (11:00)
--- NOTE | 2020-02-11 11:00 | NUR ---
DR. HEATON ROUNDED ON PT. HE OK FOR [PT TO BE WEANED OFF VENTILATOR ONCE UOP IM[PROVING AND ONCE PT FULLY AWAKE AND FOLLOWING COMMANDS. STARTED TITRATING DOWN SEDATION. PT JUST STARTED ON SODIUM BICARB GTT. SEE IV FLOW SHEET.
--- NOTE | 2020-02-11 11:33 | NUR ---
Nutrition Followup Notes Wt: 82.6 kg Pt was intubated, sedated with propofol running @ 19.81 ml/hr, providing 523 kcals from lipids. Pt is with TPN @ 56 ml/hr, providing 1460 kcals, 60g protein and 1220 NPCs. PN support meets 74-80% of est energy needs and 70-79% of est protein needs. Per records pt with GI bleed. Est Energy needs BW 79 [id number] kcals (23-25 kcal/kgBW), Est Protein needs: 79-86 gms/day (1.0-1.1 gm/kgBW). Will continue to monitor and reassess prn. LABS: Gluc 204 H, Ca 6.3 L, Alb 1.6 L, BUN 21 H, Creat 1.76 H, GFR 39 L GI: Pt had 1 BM on 02/10 per RN doc. BS: 14 mod risk. Refer to wound assessment report for full details. PES: Altered nutrition related lab values r/t current chronic medical condition aeb mod hypoalb Comments Will continue to monitor NPO status, skin status, pertinent labs and weight trends. Will f/u in 2-3 days. 1) Advance PN support to meet > 75% of needs. 2) Advance diet as medically feasible. 3) Continue current plan of care
[2020-02-11] MEDS: SODIUM FERR GLUC 62.5MG/5ML 125 MG in SODIUM CHL 0.9% 100 ML IV SCH (13:48)
[2020-02-11] MEDS ORDERED: cefTRIAXone 1GM/50ML D5W 50 ML IV ONE (15:00)
[2020-02-11] MEDS: HYDROmorphone HCL 2 MG/ML VL IV PRN (15:09)
--- NOTE | 2020-02-11 15:59 | NUR ---
PT OFF SEDATION FOLLOWING COMMANDS READY FOR CPAP TRIAL DISCUSSED WITH DR. Bharati HEATON AND DR Brendon ARMANDO.
--- NOTE | 2020-02-11 16:00 | NUR ---
PAGED RT TO COME TO PLACE PT ON CPAP TRIAL.
--- NOTE | 2020-02-11 16:24 | NUR ---
PT. PLACED ON CPAP 5, PS 7, PER DR. SAMSON'S ORDERS. PT. IS AWAKE AND FOLLOWING COMMANDS. PT. TOLERATING WELL WITHOUT RESP. DISTRESS. WEANING PARAMETERS: NIF= -32, VC=1.5L, RR= 12, VT= 1070, WILL CONTINUE TO MONITOR PT. RESP. STATUS AND O2 SATS.
--- NOTE | 2020-02-11 17:35 | NUR ---
PT'S CALLED FOR A 2ND TIME TO GET AN UPDATE ON PT'S CONDITION. I UPDATED HER ON PT'S CONDITION AND PLAN OF POSSIBLE EXTUBATION WITH PT'S CURRENT CPAP PARAMETERS ONCE WE SPEAK TO WATCH TRAIN ASSEMBLER. PT'S STATE'S SHE'LL CALL BACK TOMORROW. I TOLD HER IF ANYTHING WAS TO GO WRONG WE'LL CALL HER TO UPDATE HER.
--- NOTE | 2020-02-11 17:35 | NUR ---
Respiratory note: RECEIEVED PT ON CPAP AT THIS TIME. PT IS NOT ON SEDATION, WAKES UP AND ABLE TO FOLLOW COMMANDS. WEANING PARAMETERS COMPLETED BY DAY SHIFT LEAD RT, CHARTED IN NOTES. ABG DRAWN. RESULTS REPORTED TO RN AT 1729. THEN CALLED DR SAMSON AND LEFT MESSAGE WITH WEANING PARAMETERS AND ABG RESULTS. AWAITING CALL BACK FOR FURTHER ORDERS.
[2020-02-11] MEDS: MIDAZOLAM DRIP 50 mg/50mL 50 ML IV SCH (18:07)
--- NOTE | 2020-02-11 18:36 | NUR ---
LEFT A MESSAGE ON DR LEMUS CELL PHONE VOICE MAIL TO CALL BACK FOR WEANING PARAMETERS SO PT CAN BE EXTUBATED.
--- NOTE | 2020-02-11 19:48 | NUR ---
DR. ARMANDO CALLED BACK ABG RESULTS GIVEN. RECEIVED ORDERS TO EXTUBATE PT.
--- NOTE | 2020-02-11 19:54 | NUR ---
Respiratory note: PT EXTUBATED AT THIS TIME. RN RECEIVED CALL BACK FROM DR. CHAVARRIA, ORDERED TO EXTUBATE PT. PT IS ON 40% COOL MIST, TOLERATING WELL. SPO2 99%, HR 85, RR 19. BREATH SOUNDS CLEAR/COURSE. NO STRIDOR NOTED. PT DENIES SOB, COMPLAINING OF ABDOMINAL PAIN. RN NOTIFIED.
[2020-02-11] MEDS ORDERED: TPN PER PHARMACY IV NR ×8 (20:00)
--- NOTE | 2020-02-11 21:56 | NUR ---
DOING WELL AFTER EXTUBATION, SATS 99-100%, NO RESPIRATORY DISTRESS.
[2020-02-12] VITALS (24 sets, daily range): BP systolic 99–130; BP diastolic 49–77
[2020-02-12] MEDS: NOREPINEPHRINE 8 MG/250ML KIT 250 ML IV SCH (02:15)
[2020-02-12] MEDS: SODIUM BICARBONATE 50ML VIAL 50 ML in SOD CHL 0.45% 1,000 ML IV SCH ×2 (03:21→16:01)
[2020-02-12] MEDS: HYDROmorphone HCL 2 MG/ML VL IV PRN ×5 (03:22→22:16)
[2020-02-12 04:44] LABS: Basophils # (auto) 0 10 ^3/uL (0-0.2); Basophils % (auto) 0.1 % (0.0-2.0); Eosinophils # (auto) 0.1 10 ^3/uL (0-0.8); Hemoglobin 7.4 g/dL (13.5-17.5); Lymphocytes # (auto) 0.6 10 ^3/uL (0.4-5.4); White Blood Cell 12.9 10^3/uL (4.4-10.8)
[2020-02-12 04:46] LABS: Eosinophils % (auto) 0.9 % (0.0-7.0); Hematocrit 22.5 % (41.0-53.0); Lymphocytes % (auto) 4.7 % (10.0-50.0); Mean Corpuscular Hemoglobin 29.7 pg (28.0-32.0); Mean Corpuscular Hgb Conc. 32.9 g/dL (32.0-36.0); Mean Corpuscular Volume 90.4 fL (80.0-100.0); Monocytes # (auto) 1.1 10 ^3/uL (0-1.3); Monocytes % (auto) 8.7 % (0.0-12.0); Neutrophils # (auto) 11.1 10 ^3/uL (1.6-8.6); Neutrophils % (auto) 85.6 % (37.0-80.0); Nucleated Red Blood Cells % 0.4 %; Platelet Count (auto) 100 10^3/uL (140-450); Red Blood Cells 2.49 10^6/uL (4.5-5.90); Red Cell Distribution Width 16.1 % (11.8-14.3)
[2020-02-12 05:00] LABS: Potassium 4.2 mmol/L (3.5-5.1)
[2020-02-12 05:07] LABS: Albumin 1.7 g/dL (3.4-5.0); BUN/Creatinine Ratio 16.4; Bilirubin, Total 0.3 mg/dL (0.2-1.0); Calcium 6.8 mg/dL (8.5-10.1); Magnesium 2.3 mg/dL (1.6-2.6); Phosphorus 3.8 mg/dL (2.5-4.90); Total Protein 3.8 g/dL (6.4-8.2)
--- NOTE | 2020-02-12 05:39 | NUR ---
ADEQUATE NIGHT REST, PAIN CONTROLED BY PRN, VS STABLE, NO RESPIRATORY DIFFICULTY, SATS 88-100 %. H/H 7.4/22.[address] HALL, NO TRANSFUSION ORDERED, WILL INFORM THE ATTENDING IN AM.
[2020-02-12] MEDS: InsuLIN REG 1unit/0.01ml Soln (100units/ml) SC SCH ×4 (06:00→18:00)
[2020-02-12] MEDS: ACCU-CHEK COMFORT CURVE STRIP VI SCH ×4 (06:28→18:16)
--- NOTE | 2020-02-12 07:30 | NUR ---
REPORT REPORT RECEIVED FROM JOSE RNSAMANTHA. BEDSIDE CHECK DONE. PT RESTING WITH EYES CLOSED AND VSS. CONTINUE TO MONITOR.
--- NOTE | 2020-02-12 08:06 | NUR ---
ASSESSMENT WOKE PT FOR ASSESSMENT. ABLE TO FOLLOW SIMPLE COMMANDS AND A/O TO SELF, AND THAT HE IS IN THE HOSPITAL. LUNGS CLEAR THROUGHOUT. O2 AT 3 L/M VIA NC WITH O2 SAT OF 100%. TELE SR [address] DEPRESSION IN LEADS I AND II. PALPABLE PULSES TO ALL EXTREMITIES BUT WEAK TO FEET AND FEET ARE COOL TO THE TOUCH. +1 EDEMA TO THE RIGHT HAND AND +2 TO THE LEFT HAND. ABD SOFT AND TENDER TO THE TOUCH. MIDLINE INCISION WITH WOUND VAC IN PLACE TO SMALL PORTABLE UNIT. VERY FEW BOWEL SOUNDS NOTED. FENG DRAINING CLEAR YELLOW URINE. PT TURNED TO THE RIGHT SIDE. SKIN INTACT OTHER THAN THE PT'S SURGICAL INCISIONS. OPTIFOAM IN PLACE TO THE SACRUM AND SKIN UNDER DRESSING IS CLEAR. PT WITH IVF INFUSING TO RUE PICC LINE. SITE IS CLEAR AND DRESSING CHANGED ON 02/09. CONTINUE TO MONITOR.
--- NOTE | 2020-02-12 08:50 | NUR ---
PAIN PT WITH C/O PAIN TO HIS MIDLINE ABDOMEN. 09/02. MEDICATED WITH DILAUDID 1MG IV FOR PAIN. CONTINUE TO MONITOR. BED IN LOW POSITION AND SIDE RAILS UP X4 FOR PT SAFETY.
[2020-02-12] MEDS: cefTRIAXone 1GM/50ML D5W 50 ML IV SCH (08:55)
[2020-02-12] MEDS: SODIUM CHLOR 0.9% PF (SALINE LOCK) 10ML VIAL/SYR IV SCH ×2 (10:15→22:04)
--- NOTE | 2020-02-12 10:15 | NUR ---
PT VERY GROGGY. TOOK WEDGE OUT AND PLACED PT ON HIS BACK. VSS. CONTINUE TO MONITOR.
--- NOTE | 2020-02-12 12:00 | NUR ---
TURNED FOR COMFORT AND ACCUCHECK OF 112 WITH NO COVERAGE NEEDED.
--- NOTE | 2020-02-12 14:39 | NUR ---
PT MEDICATED WITH DILAUDID 1MG IV FOR C/O ABD INCISION PAIN 5/10. RAILS UP X4 AND BED IN LOW POSITION FOR PT SAFETY. CONTINUE TO MONITOR.
--- NOTE | 2020-02-12 15:21 | NUR ---
PAGED DR PETE REGARDING POSSIBLE DOWNGRADE AND TO SEE IF OKAY TO START PT ON HIS HOME EYE DROPS.
--- NOTE | 2020-02-12 15:43 | NUR ---
MD VISIT PT SEEN AND EXAMINED BY DR PETE. HE ORDERS TO START PT ON FEW ICE CHIPS , RESTART PT ON HIS HOME EYE DROPS, AND MAY TRANSFER OUT TO [facility] WHEN BED AVAILABLE.
[2020-02-12] MEDS: SODIUM FERR GLUC 62.5MG/5ML 125 MG in SODIUM CHL 0.9% 100 ML IV SCH (15:51)
--- NOTE | 2020-02-12 18:05 | NUR ---
MD VISIT PT SEEN AND EXAMINED BY DR Bharati HEATON. HE WANTS TO KEEP THE PT NPO, NO ICE CHIPS BUT MAY WET MOUTH. WANTS TO WAIT ON PHYSICAL THERAPY FOR NOW. DO NOT TRANSFER TO [facility], KEEP PT IN THE ICU.
--- NOTE | 2020-02-12 19:19 | NUR ---
ORDERS PLACED TO CHANGE STATUS BACK TO ICU. DR HEATON DOES NOT WANT TO TRANSFER PT OUT OF THE ICU , KEEP STRICT NPO AND NO PHYSICAL THERAPY UNTIL HE OKAYS IT. REPORT GIVEN TO JOSE RNSAMANTHA.
[2020-02-12] MEDS ORDERED: TPN PER PHARMACY IV NR ×10 (20:00)
[2020-02-12] MEDS: LATANOPROST 0.005 % OPTH(EYE) SOL 2.5ML EACHEYE SCH (22:04)
[2020-02-13] VITALS (30 sets, daily range): BP systolic 98–145; BP diastolic 50–70
[2020-02-13] MEDS: HYDROmorphone HCL 2 MG/ML VL IV PRN ×5 (04:34→21:57)
[2020-02-13 05:05] LABS: Basophils # (auto) 0 10 ^3/uL (0-0.2); Basophils % (auto) 0.1 % (0.0-2.0); Hematocrit 19.9 % (41.0-53.0); Lymphocytes # (auto) 0.6 10 ^3/uL (0.4-5.4); Mean Corpuscular Volume 91.7 fL (80.0-100.0); Nucleated Red Blood Cells % 0.6 %; Red Cell Distribution Width 17.8 % (11.8-14.3)
[2020-02-13 05:08] LABS: Eosinophils # (auto) 0.3 10 ^3/uL (0-0.8); Eosinophils % (auto) 2.1 % (0.0-7.0); Mean Corpuscular Hemoglobin 30.2 pg (28.0-32.0); Mean Corpuscular Hgb Conc. 32.9 g/dL (32.0-36.0); Monocytes # (auto) 1.2 10 ^3/uL (0-1.3); Monocytes % (auto) 9.9 % (0.0-12.0); Neutrophils % (auto) 82.9 % (37.0-80.0); Platelet Count (auto) 121 10^3/uL (140-450); Red Blood Cells 2.17 10^6/uL (4.5-5.90); White Blood Cell 12.1 10^3/uL (4.4-10.8)
[2020-02-13 05:27] LABS: Hemoglobin 6.5 g/dL (13.5-17.5)
--- NOTE | 2020-02-13 05:33 | NUR ---
HAVING DIFFICULTY DRAWING BLOOD FOR THIS AM LABS FROM THE CENTRAL LINE, THE H/H WILL BE REPEATED A PERIPHERAL STICK. COSTUME DESIGNER NOTIFIED , WILL COME DEMETRIA TO REPEAT THE TEST.
[2020-02-13 05:44] LABS: Potassium 3.9 mmol/L (3.5-5.1)
[2020-02-13 05:51] LABS: Albumin 1.6 g/dL (3.4-5.0); BUN/Creatinine Ratio 24.2; Bilirubin, Total 0.3 mg/dL (0.2-1.0); Calcium 6.9 mg/dL (8.5-10.1); Magnesium 2.4 mg/dL (1.6-2.6); Phosphorus 2.8 mg/dL (2.5-4.90); Total Protein 3.9 g/dL (6.4-8.2)
[2020-02-13 06:24] LABS: Hematocrit 19.9 % (41.0-53.0)
[2020-02-13 06:27] LABS: Hemoglobin 6.5 g/dL (13.5-17.5)
--- NOTE | 2020-02-13 07:01 | NUR ---
LEFT MESSAGE FOR DR PETE REGARDING THE REPEAT CBC RESULTS, AWAITING FOR CALL BACK.
--- NOTE | 2020-02-13 07:40 | NUR ---
REPORT REPORT RECEIVED FROM NIGHT RNSAMANTHA. PT RESTING IN BED WITH EYES CLOSED, AND NO DISTRESS NOTED. CONTINUE TO MONITOR.
--- NOTE | 2020-02-13 07:55 | NUR ---
ASSESSMENT WOKE PT FOR ASSESSMENT. A/O X3 , NOT DATE. ABLE TO FOLLOW SIMPLE COMMANDS. PT VERY WEAK. TALKED WITH HIM ABOUT TRYING TO LIFT ARMS OFF THE BED , BEND ARMS AT THE ELBOW, ROTATE HANDS AT THE WRIST, AND FLEXING AND EXTENDING FEET. HE IS TRYING TO DO THAT. LUNGS WITH EXPIRATORY WHEEZING NOTED THROUGHOUT. O2 AT 2 L/M VIA NC WITH O2 SAT OF 98%. TELE SR 79. PALPABLE PULSES TO ALL EXTREMITIES. SCDS TO BLE. +1 PITTING EDEMA TO BILATERAL ANKLES. +1 EDEMA TO THE LEFT HAND AND +2 TO THE RIGHT HAND. ABD SOFT AND TENDER TO THE TOUCH. MIDLINE INCISION COVERED BY WOUND VAC, CONNECTED TO SMALL PORTABLE UNIT. FENG CATHETER DRAINING CLEAR YELLOW URINE. PT WITH IVF INFUSING TO PICC LINE ON THE RUE, SITE BENIGN, DRESSING CHANGED ON 02/09. PT TURNED FOR COMFORT TO HIS RIGHT SIDE. SACRAL OPTIFOAM IN PLACE, WITH SKIN UNDER DRESSING INTACT. RAILS UP X4 AND BED IN LOW POSITION FOR PT SAFETY. CONTINUE TO MONITOR.
[2020-02-13] MEDS: SODIUM BICARBONATE 50ML VIAL 50 ML in SOD CHL 0.45% 1,000 ML IV SCH ×2 (08:03→21:57)
--- NOTE | 2020-02-13 10:15 | NUR ---
MD VISIT PT SEEN AND EXAMINED BY DR MCKINNEY. HE IS AWARE OF THE H/H OF 6.5/ AND NO S/S OF ACTIVE BLEEDING. HE ORDERED FOR THE PT TO RECEIVE ONE UNIT OF PRBC TODAY.
[2020-02-13] MEDS: SODIUM CHLOR 0.9% PF (SALINE LOCK) 10ML VIAL/SYR IV SCH ×2 (10:17→21:57)
[2020-02-13] MEDS: cefTRIAXone 1GM/50ML D5W 50 ML IV SCH (10:17)
--- NOTE | 2020-02-13 11:33 | NUR ---
Nutrition Followup Notes Wt: 82.0 kg Pt was intubated, off propofol running. Pt is with TPN @ 58 ml/hr, providing 1500 kcals, 70g protein and 1220 NPCs. PN support meets 75-82% of est energy needs and 72-80% of est protein needs. Est Energy needs BW 79 [id number] kcals (23-25 kcal/kgBW), Est Protein needs: 79-86 gms/day (1.0-1.1 gm/kgBW). Will continue to monitor and reassess prn. LABS: BUN 38 H CREAT 1.57 H GLU 129 H ALB 1.6 L GI: Pt had 1 BM on 02/10 per RN doc. BS: 16 mod risk. Refer to wound assessment report for full details. PES: Altered nutrition related lab values r/t current chronic medical condition aeb mod hypoalb Comments Will continue to monitor NPO status, PN tolerance, skin status, pertinent labs and weight trends. Will f/u in 2-3 days. 1) Advance PN support to meet > 75% of needs. 2) Advance diet as medically feasible. 3) Continue current plan of care
--- NOTE | 2020-02-13 11:39 | NUR ---
THE GLUCOSE RESULT AT 1139 OF 581 WAS A LINE DRAW AND I FORGOT TO TURN OFF THE TPN. I THEN DID A FINGERSTICK AND THE RESULT WAS 125.
[2020-02-13] MEDS: InsuLIN REG 1unit/0.01ml Soln (100units/ml) SC SCH ×4 (11:44→17:39)
[2020-02-13] MEDS: ACCU-CHEK COMFORT CURVE STRIP VI SCH ×4 (11:44→17:36)
--- NOTE | 2020-02-13 11:45 | NUR ---
ACCUCHECK OF 125 WITH NO COVERAGE NEEDED PER SLIDING SCALE. TEMP OF 100.1, REMOVED BLANKET. CONTINUE TO MONITOR.
[2020-02-13] MEDS: SODIUM FERR GLUC 62.5MG/5ML 125 MG in SODIUM CHL 0.9% 100 ML IV SCH (12:03)
--- NOTE | 2020-02-13 14:47 | NUR ---
BLOOD TRANSFUSION PT TO RECEIVE ONE UNIT OF PRBC TODAY. CONSENT ON THE CHART. VS: 100.2(O) 76-12-100% ON O2 AT 2L/M VIA NC AND 111/63.. ADVISED PT TO NOTIFY ME IF HE STARTS FEELING ANYTHING DIFFERENT. HE EXPRESSED UNDERSTANDING. CONTINUE TO MONITOR.
--- NOTE | 2020-02-13 15:30 | NUR ---
BLOOD TRANSFUSION IN PROGRESS. PT TOLERATING WELL. CONTINUE TO MONITOR.
--- NOTE | 2020-02-13 16:12 | NUR ---
MD VISIT PT SEEN AND EXAMINED BY DR PETE. MADE HIM AWARE THAT PT S H/H 6.5 THIS AM, DR MCKINNEY ORDERED ONE UNIT PRBC TO BE TRANSFUSED AND THAT IT IS IN PROGRESS.
--- NOTE | 2020-02-13 16:15 | NUR ---
PT TURNED TO HIS RIGHT SIDE. PT ;WITH C/O PAIN TO HIS ABD INCISION AREA, 09/02. TOO EARLY TO MEDICATE BY CURRENT ORDERS. PAIN MEDICINE AVAILABLE AROUND 1700. PT STATES HE CAN WAIT.
--- NOTE | 2020-02-13 18:00 | NUR ---
BLOOD BAG EMPTY AND SALINE RUNNING TO CLEAR THE LINE.
--- NOTE | 2020-02-13 19:47 | NUR ---
REPORT REPORT GIVEN TO CHANTAL GARCIA RN.
[2020-02-13] MEDS ORDERED: TPN PER PHARMACY IV NR ×10 (20:00)
--- NOTE | 2020-02-13 20:00 | NUR ---
ASSESSMENT PATIENT IS AWAKE , ALERT , ORIENTED X4 . EKG SHOWS AFIB. OTHER VITAL SIGNS ARE STABLE. SEE INTERVENTIONS.
[2020-02-13] MEDS: LATANOPROST 0.005 % OPTH(EYE) SOL 2.5ML EACHEYE SCH (21:58)
[2020-02-14] VITALS (24 sets, daily range): BP systolic 86–137; BP diastolic 48–72
[2020-02-14] MEDS: ACCU-CHEK COMFORT CURVE STRIP VI SCH ×4 (00:17→18:29)
[2020-02-14 05:05] LABS: Albumin 1.5 g/dL (3.4-5.0); Potassium 3.4 mmol/L (3.5-5.1)
[2020-02-14 05:11] LABS: BUN/Creatinine Ratio 28.8; Bilirubin, Total 0.3 mg/dL (0.2-1.0); Magnesium 2.3 mg/dL (1.6-2.6); Phosphorus 2.7 mg/dL (2.5-4.90); Total Protein 4.1 g/dL (6.4-8.2)
[2020-02-14] MEDS: InsuLIN REG 1unit/0.01ml Soln (100units/ml) SC SCH ×4 (06:00→18:00)
--- NOTE | 2020-02-14 06:00 | NUR ---
ASSESSMENT VITAL SIGNS ARE STABLE. PATIENT IS WATCHING TV. NO COMPLAINTS. REPOSITIONED Q2H.
--- NOTE | 2020-02-14 08:00 | NUR ---
Opening Shift Note Assumed care of patient, awake and alert. No S/S of distress/SOB or pain. RT arm pink and swollen, will inform MD. See interventions for complete assessment. Bed locked on low position, side rails up x2, bed alarms on at all times, call mendez within reach, instructed on POC and to call for assist PRN, will continue to monitor for changes Q1hr and PRN.
--- NOTE | 2020-02-14 09:17 | NUR ---
Dr Mosher at bedside, updated on patient's status. Patient seen and examined. Will carry out new orders.
[2020-02-14 09:29] LABS: Basophils # (auto) 0 10 ^3/uL (0-0.2); Eosinophils # (auto) 0.2 10 ^3/uL (0-0.8); Lymphocytes # (auto) 0.5 10 ^3/uL (0.4-5.4); Monocytes # (auto) 0.9 10 ^3/uL (0-1.3); Neutrophils # (auto) 7.9 10 ^3/uL (1.6-8.6); Nucleated Red Blood Cells % 0.4 %; White Blood Cell 9.6 10^3/uL (4.4-10.8)
[2020-02-14 09:31] LABS: Basophils % (auto) 0.4 % (0.0-2.0); Eosinophils % (auto) 2.4 % (0.0-7.0); Hematocrit 21.2 % (41.0-53.0); Hemoglobin 7.1 g/dL (13.5-17.5); Lymphocytes % (auto) 5.5 % (10.0-50.0); Mean Corpuscular Hemoglobin 30.6 pg (28.0-32.0); Mean Corpuscular Hgb Conc. 33.4 g/dL (32.0-36.0); Mean Corpuscular Volume 91.5 fL (80.0-100.0); Monocytes % (auto) 9.2 % (0.0-12.0); Neutrophils % (auto) 82.5 % (37.0-80.0); Platelet Count (auto) 124 10^3/uL (140-450); Red Blood Cells 2.31 10^6/uL (4.5-5.90); Red Cell Distribution Width 16.9 % (11.8-14.3)
[2020-02-14] MEDS: SODIUM CHLOR 0.9% PF (SALINE LOCK) 10ML VIAL/SYR IV SCH ×2 (09:36→21:51)
[2020-02-14] MEDS: cefTRIAXone 1GM/50ML D5W 50 ML IV SCH (09:36)
--- NOTE | 2020-02-14 12:00 | NUR ---
Patient's wound vac leaking and noisy. car seat upholsterer Mary Ellen at bedside. Paged DR Lal. Awaiting call back.
[2020-02-14] MEDS ORDERED: POTASSIUM CHL 20MEQ/100ML 100 ML IV ONE (12:15)
[2020-02-14] MEDS: SODIUM FERR GLUC 62.5MG/5ML 125 MG in SODIUM CHL 0.9% 100 ML IV SCH (12:50)
[2020-02-14] MEDS: SODIUM BICARBONATE 50ML VIAL 50 ML in SOD CHL 0.45% 1,000 ML IV SCH (12:50)
--- NOTE | 2020-02-14 14:33 | NUR ---
Received call from Dr James Lal regarding the paged earlier. Re- paged Dr María Lal. Awaiting call back.
--- NOTE | 2020-02-14 14:42 | NUR ---
Paged Dr Dumont regarding patient's RT arm ultrasound report that showed non-occlusive thrombus RT axillary vein. Awaiting call back.
--- NOTE | 2020-02-14 14:51 | NUR ---
Received call from Dr Dumont stating he's not on schedule today. Paged Dr Hauser regarding patient's RT arm ultrasound report. Awaiting call back.
--- NOTE | 2020-02-14 15:07 | NUR ---
Received call from Dr Hauser, informed of patient's RT arm MD kali verbalized understanding. Plan to discontinue TPN and RT arm PICC once patient is ready to take per [facility]. No further orders at this time.
--- NOTE | 2020-02-14 16:06 | NUR ---
Dr Hauser at bedside, updated on patient's status. Patient seen and examined. Will carry out new orders.
--- NOTE | 2020-02-14 16:15 | NUR ---
Dr Paz at bedside, updated on patient's status. Patient seen and examined. Will carry out new orders.
--- NOTE | 2020-02-14 16:23 | NUR ---
Re-paged Dr Lal regarding patient's wound vac. Awaiting call back.
--- NOTE | 2020-02-14 18:00 | NUR ---
Patient complaining of abdominal pain 08/03 this morning, pulled out Diljunior PRN but waited for 30 minutes due to low blood pressure. Patient refused to have pain medication after 30 minutes stating "I'm passed that, I'm ok now." Juan Antonio place in return bin but unable to document return, [facility] informed.
--- NOTE | 2020-02-14 18:13 | NUR ---
Received call from patient's Kristen who's able to provide password, updated on patient's status and POC. Verbalized understanding. All questions and concerns addressed.
--- NOTE | 2020-02-14 18:17 | NUR ---
Spoke to Dr María Lal over the phone, updated on patient status. MD to come and see patient.
--- NOTE | 2020-02-14 19:45 | NUR ---
OPEN ASSUMED CARE OF MALE PT A&O X 3. PT ON O2 VIA N/C 1L. SR ON EM PHYSICIAN. WOUND VAC DRESSING OBSERVED TO ANTERIOR ABDOMEN. WOUND VAC NOT CURRENTLY OPERATIONAL. DRESSING CDI. PT WITH HYPOACTIVE BOWEL SOUNDS TO ALL QUADRANTS. PT REPORTS PASSING FLATUS. ROBBIE PICC LINE IN PLACE ALL PORTS PATENT. DRESSING CDI. REDNESS OBSERVED TO R. UPPER ARM. ICE ZULMA PROVIDED. EXTREMITY ELEVATED ON PILLOW. FENG TO GRAVITY DRAINING CLEAR YELLOW URINE. CHE SCD'S IN PLACE. PT DENIES PAIN AT THIS TIME. BED IN LOWEST LOCKED POSITION. SIDE RAILS UP X 2. CALL GOMEZ IN REACH. BEDSIDE MONITOR ALARMS ON AND AUDIBLE. HOB ELEVATED 30 DEGREES. PILLOWS USED TO OFFLOAD BONY PROMINENCES AND CHE HEELS. NO SKIN BREAKDOWN OBSERVED. PT IN FULL VIEW OF RN STATION. WILL CONTINUE TO MONITOR.
[2020-02-14] MEDS ORDERED: TPN PER PHARMACY IV NR ×10 (20:00)
--- NOTE | 2020-02-14 20:15 | NUR ---
DR HEATON TO UNIT/INCISION CARE DR HEATON TO UNIT. REMOVED WOUND VAC AND DRESSING. REMOVED 2 AZAR TOWARD BOTTOM OF MIDLINE INCISION AND SUCTIONED OUT SML AMOUNT OF PINK DRAINAGE USING STERILE SUCTION CATHETER. INCISION CLEANSED WITH CHLORHEXIDINE SWABS AND REDRESSED WITH STERILE 4X4'S AND MEDIPORE TAPE. ABDOMINAL BINDER PLACED PER DR. HEATON ORDER. PT TOLERATED WELL.
[2020-02-14] MEDS: HYDROmorphone HCL 2 MG/ML VL IV PRN (21:39)
[2020-02-14] MEDS: LATANOPROST 0.005 % OPTH(EYE) SOL 2.5ML EACHEYE SCH (21:39)
--- NOTE | 2020-02-14 21:45 | NUR ---
PAIN PT C/O PAIN 11/02 TO ABD INCISION. MEDICATED PT WITH DILAUDID SIVP PER ORDER. SEE EMAR.
[2020-02-15] VITALS (15 sets, daily range): BP systolic 118–141; BP diastolic 53–82
[2020-02-15] MEDS: ACCU-CHEK COMFORT CURVE STRIP VI SCH ×3 (01:00→12:14)
[2020-02-15] MEDS: InsuLIN REG 1unit/0.01ml Soln (100units/ml) SC SCH ×3 (01:00→12:15)
[2020-02-15] MEDS: HYDROmorphone HCL 2 MG/ML VL IV PRN (02:00)
--- NOTE | 2020-02-15 02:00 | NUR ---
PAIN PT C/O 5/10 ABD PAIN. PT MEDICATED WITH DILAUDID SIVP PER ORDER. SEE EMAR.
[2020-02-15] MEDS: SODIUM BICARBONATE 50ML VIAL 50 ML in SOD CHL 0.45% 1,000 ML IV SCH ×2 (02:45→10:37)
--- NOTE | 2020-02-15 05:00 | NUR ---
Patient bathe/linen change Patient given complete bath. Skin integrity assessed for any changes. Linens changed. Patient repositioned for comfort.
[2020-02-15 05:31] LABS: Basophils # (auto) 0 10 ^3/uL (0-0.2); Eosinophils # (auto) 0.2 10 ^3/uL (0-0.8); Lymphocytes # (auto) 0.5 10 ^3/uL (0.4-5.4); Monocytes % (auto) 12.1 % (0.0-12.0)
[2020-02-15 05:33] LABS: Basophils % (auto) 0.2 % (0.0-2.0); Eosinophils % (auto) 2.6 % (0.0-7.0); Hematocrit 21.6 % (41.0-53.0); Hemoglobin 7.3 g/dL (13.5-17.5); Lymphocytes % (auto) 6.1 % (10.0-50.0); Mean Corpuscular Hemoglobin 30.7 pg (28.0-32.0); Mean Corpuscular Hgb Conc. 33.5 g/dL (32.0-36.0); Mean Corpuscular Volume 91.6 fL (80.0-100.0); Neutrophils # (auto) 6.8 10 ^3/uL (1.6-8.6); Platelet Count (auto) 157 10^3/uL (140-450); Red Blood Cells 2.36 10^6/uL (4.5-5.90); Red Cell Distribution Width 17.6 % (11.8-14.3); White Blood Cell 8.6 10^3/uL (4.4-10.8)
[2020-02-15 05:50] LABS: Albumin 1.4 g/dL (3.4-5.0); Calcium 7.1 mg/dL (8.5-10.1); Magnesium 2.4 mg/dL (1.6-2.6); Potassium 3.5 mmol/L (3.5-5.1)
[2020-02-15 05:54] LABS: BUN/Creatinine Ratio 29.6; Bilirubin, Total 0.2 mg/dL (0.2-1.0); Phosphorus 3.2 mg/dL (2.5-4.90)
--- NOTE | 2020-02-15 08:00 | NUR ---
Opening Shift Note Assumed care of patient, awake and alert. No S/S of distress/SOB or pain. Patient's temperature 100.2 orally, cooling measures done. See interventions for complete assessment. Bed locked on low position, side rails up x2, bed alarms on at all times, call mendez within reach, instructed on POC and to call for assist PRN, will continue to monitor for changes Q1hr and PRN.
[2020-02-15] MEDS: cefTRIAXone 1GM/50ML D5W 50 ML IV SCH (08:45)
[2020-02-15] MEDS: SODIUM CHLOR 0.9% PF (SALINE LOCK) 10ML VIAL/SYR IV SCH ×2 (10:36→22:38)
--- NOTE | 2020-02-15 11:32 | NUR ---
Dr Mosher at bedside, updated on patient's status. Patient seen and examined. Will carry out new orders.
--- NOTE | 2020-02-15 14:00 | NUR ---
This RN came back from lunch. Per Aileen PERSON, patient had small amount of watery, cranberry colored bowel movement. Will inform MD.
--- NOTE | 2020-02-15 14:05 | NUR ---
THAIS MCKEON transfered to [facility] via hospital bed on electronic device monitor and portable 02. All patient medications and personal belongings including cellphone transfered with patient to receiving floor. Patient care transfered to [place] PERSON.
--- NOTE | 2020-02-15 14:05 | NUR ---
Spoke to patient's Kristen who's able to provide password. Updated on patient's status and POC. Informed of patient's transfer to [facility]. Verbalized understanding. All questions and concerns addressed.
--- NOTE | 2020-02-15 14:27 | NUR ---
Nutrition Followup Notes Wt: 80.7 kg Pt is s/p extubation on 02/13 per MD note. Pt is still NPO with no diet order. Pt with TPN running at 73 ml/hr providing 1980 kcal, 80g protein, 1660 NPCs. This provides 100-109% of energy needs and 93-101% of protein needs. Est Energy needs BW 79 [id number] kcals (23-25 kcal/kgBW), Est Protein needs: 79-86 gms/day (1.0-1.1 gm/kgBW). Will continue to monitor and reassess prn. LABS: BUN 32H, GLUC 114H, Alb 1.4L, Ca 7.1L GI: Pt had small BM today per RN note BS: 14 mod risk. Refer to wound assessment report for full details. PES: Altered nutrition related lab values r/t current chronic medical condition aeb mod hypoalb Comments Will continue to monitor NPO status, PN tolerance, skin status, pertinent labs and weight trends. Will f/u in 2-3 days. 1) Continue PN support to meet > 75% of needs. 2) Advance diet as medically feasible. 3) Continue current plan of care
--- NOTE | 2020-02-15 14:30 | NUR ---
OPEN: TRANSFERRED TO [facility] ROOM 263 RECEIVED REPORT FROM CHEMICAL LABORATORY TECHNICIAN, SHARLENE. ASSUMED CARE OF [facility] PATIENT, FULL CODE STATUS. PATIENT A & O X4 CALM AND FOLLOWS COMMANDS AT THIS TIME. NO PAIN AT THIS TIME. PATIENT PLACED ON O2 AT 2L VIA NC. NO SOB AT THIS TIME. RIGHT UA PICC LINE RUNNING CURRENT IV FLUIDS ORDERED. PATIENT STRICT NPO STATUS. TPN INFUSING AT 73 ML/HR. SKIN REMAINS INTACT. WILL CONTINUE TO HELP TURN PATIENT Q2HRS AND PRN. OFF LOADING PRESSURE AREAS WITH PILLOWS. FENG TO GRAVITY. WILL CONTINUE TO MONITOR.
--- NOTE | 2020-02-15 15:32 | NUR ---
DR. Francois TONY CALLED: UPDATE MD UPDATED ON PT'S CURRENT STATUS, LABS AND POC FOR TODAY. ORDERS GIVEN AND TO BE CARRIED OUT. WILL CONTINUE TO MONITOR.
[2020-02-15] MEDS ORDERED: PANTOPRAZOLE 40 MG/10 ML VIAL INJ IV ONE (15:45)
--- NOTE | 2020-02-15 19:45 | NUR ---
Opening Shift Note received report from day shift RN. Pt came in on 02/03 for rectal bleeding and dizziness. On 02/05 patient had a colonoscopy by Dr Mosher that showed polyps, on 02/09 patient underwent a right hemicolectomy by Dr Bharati Lal. Pt was intubated and admitted to the ICU. Pt has had multiple blood transfusions in his stay at [facility]. Pt had RUE PICC taken out today due to US showing thrombus. Pt has a new IV to the Lt wrist. Pt is currently AAOx4, lying in bed. Pt's abdominal dressing is dry and intact. Pt denies any pain or any complaints at this time. Bed is locked at lowest position, side rails are up, call light is within reach. Pt encouraged to call if he needs anything. Pt verbalized understanding. Will continue to monitor.
[2020-02-15] MEDS ORDERED: [UNRECOGNIZED DRUG - OTHER] IV NR ×10 (20:00)
[2020-02-15] MEDS ORDERED: POTASSIUM PHOSPHATE IV NR ×10 (20:00)
[2020-02-15] MEDS ORDERED: POTASSIUM ACETATE IV NR ×10 (20:00)
[2020-02-15] MEDS ORDERED: FAT EMULSION IV NR ×10 (20:00)
--- NOTE | 2020-02-15 20:55 | NUR ---
Bowel movement Pt had a moderate amount of liquid bloody stool. Will continue to monitor.
--- NOTE | 2020-02-15 22:30 | NUR ---
Complete linen change Complete linen change completed at this time. New abdominal binder placed on patient. Pt tolerated well. Will continue to monitor.
[2020-02-15] MEDS: LATANOPROST 0.005 % OPTH(EYE) SOL 2.5ML EACHEYE SCH (22:47)
--- NOTE | 2020-02-15 23:00 | NUR ---
Wounds Wound pictures taken of the right and left upper buttock blisters. Photographic wound documentation sheet placed in designated area. Wound consult placed per protocol.
--- NOTE | 2020-02-16 02:10 | NUR ---
Bowel Movement Pt had small, liquid, bloody bowel movement. Will continue to monitor.
[2020-02-16 03:06] LABS: Basophils # (auto) 0 10 ^3/uL (0-0.2); Basophils % (auto) 0.4 % (0.0-2.0); Eosinophils # (auto) 0.3 10 ^3/uL (0-0.8); Eosinophils % (auto) 2.4 % (0.0-7.0); Hematocrit 25.6 % (41.0-53.0); Hemoglobin 8.5 g/dL (13.5-17.5); Lymphocytes # (auto) 0.7 10 ^3/uL (0.4-5.4); Lymphocytes % (auto) 5.1 % (10.0-50.0); Mean Corpuscular Hemoglobin 30.3 pg (28.0-32.0); Mean Corpuscular Hgb Conc. 33.1 g/dL (32.0-36.0); Mean Corpuscular Volume 91.7 fL (80.0-100.0); Monocytes # (auto) 1.5 10 ^3/uL (0-1.3); Monocytes % (auto) 11.2 % (0.0-12.0); Neutrophils # (auto) 10.4 10 ^3/uL (1.6-8.6); Neutrophils % (auto) 80.9 % (37.0-80.0); Platelet Count (auto) 202 10^3/uL (140-450); Red Blood Cells 2.79 10^6/uL (4.5-5.90); Red Cell Distribution Width 18.5 % (11.8-14.3); White Blood Cell 12.9 10^3/uL (4.4-10.8)
[2020-02-16 03:21] LABS: INR 1.01 (0.9-1.15); Partial Thromboplastin Time 30.5 sec (23.0-31.2)
[2020-02-16 03:24] LABS: Albumin 1.6 g/dL (3.4-5.0); Calcium 7.4 mg/dL (8.5-10.1); Magnesium 2.3 mg/dL (1.6-2.6); Potassium 3.6 mmol/L (3.5-5.1)
[2020-02-16 03:28] LABS: BUN/Creatinine Ratio 25.2; Bilirubin, Total 0.4 mg/dL (0.2-1.0); Phosphorus 3.3 mg/dL (2.5-4.90); Total Protein 4.7 g/dL (6.4-8.2)
[2020-02-16 04:01] VITALS: BP 113/62
--- NOTE | 2020-02-16 04:14 | NUR ---
PICC consent signed Previous teaching about PICC line reinforced. Pt verbalized understanding. Will continue to monitor.
--- NOTE | 2020-02-16 05:30 | NUR ---
Bowel Movement Pt had small, semi liquid, dark brown bowel movement. Will continue to monitor.
--- NOTE | 2020-02-16 07:45 | NUR ---
OPENING SHIFT NOTE Received report from NOC RNLawanda. Assumed care of patient. Received patient lying in bed, connected to bedside monitor with alarms in place. Patient is currently A&Ox4, denies pain and no s/s of distress noted. Patient is currently on 2L NC with O2 sats >92%. Patient with midline abdominal incision and abdominal binder in place. Dressing is C/D/I. Patient with PIV to L wrist #[address] TKO and is patent and intact. Patient is pending new PICC line insertion due to right arm developing a thrombus per report. Patient with lopez draining clear yellow UOP. Bed in lowest position, rails x3 up and call light within reach. Updated on plan of care. Will continue to monitor.
[2020-02-16 08:00] VITALS: BP 121/64
--- NOTE | 2020-02-16 09:40 | NUR ---
MD Dr Mosher at bedside to see patient.
[2020-02-16] MEDS: PANTOPRAZOLE 40 MG/10 ML VIAL INJ IV SCH (09:51)
[2020-02-16] MEDS: SODIUM CHLOR 0.9% PF (SALINE LOCK) 10ML VIAL/SYR IV SCH ×2 (10:00→21:33)
[2020-02-16] MEDS: cefTRIAXone 1GM/50ML D5W 50 ML IV SCH (10:00)
--- NOTE | 2020-02-16 11:40 | NUR ---
WOUND CARE NOTE: Wound care in to see patient per wound care request regarding skin integrity issue that are noted upon assessment. Bedside nurse took photograph of patient's skin issue upon discovery for reference. Patient is 89 years old male with admitting diagnosis of GI Bleed. Patient is resting in SDU low air loss bed in Rm. 263. He's awake, alert and oriented. He's in no stated pain at this time. Patient is able to assist in turning and repositioning and his Ojse score is 16. Skin/wound assessment done with the assistance of a student nurse. Patient developed serum filled blisters to Lt (1.5x1cm) and Rt (0.8x1cm) upper buttock. Blisters are pink/red with pink pascual wound, no drainage, no odor noted. Pascual care given,patted dry and covered blisters with protective Opti foam gentle dressing. Patient undergone Exploratory Laparotomy on 02/10/[address] Lal. He has C/D/I dressing to abdomen. Repositioned patient for comfort facing his Rt side, redistributed pressure points with pillows. Patient tolerated well. Bed in low position, call mendez on hand, all safety precautions in placed. RECOMMENDATION: PRN dressing change to Rt and Lt upper buttocks blister per MD order, frequent turning and repositioning schedule as condition permits, redistribute pressure points with pillows, elevate heels on pillows, continue monitoring by wound care while patient Jose score is <18. Addendum: 02/16/20 at 1538 by Gladys Cook RN Amended: Links added.
[2020-02-16 12:00] VITALS: BP 127/73
[2020-02-16] MEDS ORDERED: IRON SUCROSE COMPLEX 200 MG in SODIUM CHL 0.9% 100 ML IV SCH (12:00)
[2020-02-16] MEDS: SODIUM FERR GLUC 125 MG in NS 100 ML IV SCH (12:49)
--- NOTE | 2020-02-16 13:43 | NUR ---
MD Dr Audelia Bosch at bedside. Orders received for DC planning and to get clearance for discharge from consulting doctors.
--- NOTE | 2020-02-16 13:55 | NUR ---
MD Dr Mosher called. says patient is cleared from GI perspective for DC to SNF. states to clarify with surgeon, Dr Bharati Lal regarding diet and lovenox.
--- NOTE | 2020-02-16 15:05 | NUR ---
ss consult Per ss consult SNF placement for rehab. Patient has agreed to SNF for rehab. Addendum: 02/16/20 at 1548 by Clotilde BEACH Amended: Links added.
--- NOTE | 2020-02-16 15:08 | NUR ---
1500 02/16/2020 - Faxed to [facility]/ at [phone]. face sheet, order for DC planning SNF placement for rehab. pending review and accepting SNF. Addendum: 02/16/20 at 1536 by Estela Jonas RN, CM [id number] 02/16/20 - Contacted [facility] Fragoso at [phone], who confirmed receiving all faxed documentation. per Fouzia working on [facility] who has accepted patient. Addendum: 02/16/20 at 1600 by Estela Jonas RN, CM [id number] 02/16/20 - Contacted by [facility] Fragoso who provided authorization [id number] for [facility] and [facility] is contracted with [facility] for transportation.
--- NOTE | 2020-02-16 15:26 | NUR ---
re-assessment Per consult DC planning SNF placement for rehab. MD order has been sent to [facility] and [facility]. Per Mansi at [facility] she has accepted patient to facility to room [address] and Dr Hughes is the accepting MD. Estela shelter case manager is working on auth and transport. Addendum: 02/16/20 at 1548 by Clotilde Olson Amended: Links added.
[2020-02-16 16:00] VITALS: BP 125/66
--- NOTE | 2020-02-16 18:08 | NUR ---
MD Dr Bharati Lal to see patient. Orders received ok for lovenox, start on ice chips, clear liquid breakfast in AM, discontinue MD john doesn't want patient to go to SNF due to infection risk, recommends home with physical therapy. Will notify Dr Audelia Bosch.
--- NOTE | 2020-02-16 18:35 | NUR ---
T/C from Dr Audelia Bosch. aware that PT will see in AM due to Dr Bharati aLl's late rounding. Order received for social service to arrange home PT and safety eval. Orders received for lovenox.
--- NOTE | 2020-02-16 19:20 | NUR ---
END OF SHIFT NOTE Report given to NOC RNLawanda. Patient resting in bed. Patient can now have ice chips and if tolerates, advance to clear liquids tomorrow AM . Patient denies any pain. Patient to have lopez discontinued and PT eval in AM. Endorsed care of patient.
--- NOTE | 2020-02-16 19:30 | NUR ---
Opening Shift Note received report from day shift RN Aditi. Pt came in on 02/03 for rectal bleeding and dizziness. On 02/05 patient had a colonoscopy by Dr Mosher that showed polyps, on 02/09 patient underwent a right hemicolectomy by Dr Bharati Lal. Pt was intubated and admitted to the ICU. Pt has had multiple blood transfusions in his stay at [facility]. Pt had RUE PICC taken out due to US showing thrombus RUE still swollen and red. Pt has IV access to the Lt wrist. Pt is currently AAOx4, lying in bed. Pt's abdominal dressing is dry and intact. Pt denies any pain or any complaints at this time. Bed is locked at lowest position, side rails are up, call light is within reach. Pt encouraged to call if he needs anything. Pt verbalized understanding. Will continue to monitor.
--- NOTE | 2020-02-16 19:55 | NUR ---
Vomiting Episode Pt had a vomiting episode at this time. Looks like foamy sputum. Will carry out intervention.
[2020-02-16 20:00] VITALS: BP 141/69
[2020-02-16] MEDS: ONDANSETRON HCL 4 MG/2 ML VIAL IV PRN (20:08)
[2020-02-16] MEDS: LATANOPROST 0.005 % OPTH(EYE) SOL 2.5ML EACHEYE SCH (21:33)
[2020-02-17] VITALS (25 sets, daily range): BP systolic 109–143; BP diastolic 65–83
--- NOTE | 2020-02-17 00:05 | NUR ---
Vomiting Episode Pt had a vomiting episode at this time. Looks like foamy sputum. Will carry out intervention. Addendum: 02/17/20 at 0012 by JOYCE FERGUSON RN RN Vomiting episode also is green bile, about 100mls.
--- NOTE | 2020-02-17 02:50 | NUR ---
Lopez Catheter D/C Order to discontinue lopez catheter. Lopez dc'd with clean technique following deflation of balloon. Patient tolerated well with no complaints of pain. VSS, will continue to monitor.
--- NOTE | 2020-02-17 03:10 | NUR ---
Linen change/Bed bath Partial linen change, shower cap, and bed bath completed at this time. Pt tolerated well, VSS. Will continue to monitor.
[2020-02-17 03:42] LABS: Basophils # (auto) 0 10 ^3/uL (0-0.2); Basophils % (auto) 0.2 % (0.0-2.0); Eosinophils # (auto) 0.2 10 ^3/uL (0-0.8); Eosinophils % (auto) 1.1 % (0.0-7.0); Hematocrit 28.7 % (41.0-53.0); Hemoglobin 9.2 g/dL (13.5-17.5); Lymphocytes # (auto) 0.5 10 ^3/uL (0.4-5.4); Lymphocytes % (auto) 3.8 % (10.0-50.0); Mean Corpuscular Hemoglobin 30.4 pg (28.0-32.0); Mean Corpuscular Hgb Conc. 31.9 g/dL (32.0-36.0); Mean Corpuscular Volume 95.2 fL (80.0-100.0); Monocytes % (auto) 7.3 % (0.0-12.0); Neutrophils # (auto) 12.1 10 ^3/uL (1.6-8.6); Neutrophils % (auto) 87.6 % (37.0-80.0); Platelet Count (auto) 292 10^3/uL (140-450); Red Blood Cells 3.01 10^6/uL (4.5-5.90); White Blood Cell 13.8 10^3/uL (4.4-10.8)
[2020-02-17 03:50] LABS: Red Cell Distribution Width 20.3 % (11.8-14.3)
[2020-02-17 03:55] LABS: Calcium 7.9 mg/dL (8.5-10.1); Potassium 3.9 mmol/L (3.5-5.1)
--- NOTE | 2020-02-17 08:15 | NUR ---
ASSESSMENT COMPLETED, A/O X4 ON 2LPM O2 VIA NC. TOLERATING ICE CHIPS. SWALLOWS WITHOUT ISSUE. BOWEL SOUNDS HYPOACTIVE. CLEAR LIQUID TRAY GIVEN AND ENCOURAGED TO START CLEAR LIQUIDS SLOWLY AND PATIENT VERBALIZED UNDERSTANDING. DSG CHANGE PERFORMED TO MIDLINE SURGICAL ABDOMINAL INCISION WITH 21 AZAR INTACT AND INCISION ASYMPTOMATIC. OLD DSG SATURATED WITH SEROSANGUINEOUS DRAINAGE. CLEANSED WITH WOUND CLEANSER COVERED WITH 4X4 GAUZE AND ABD PAD COVERED WITH MEDIPORE TAPE. TOLERATED WELL. EDUCATION PROVIDED ON SIGNS/SYMPTOMS OF INCISION INFECTION. PATIENT VERBALIZED UNDERSTANDING.
--- NOTE | 2020-02-17 09:00 | NUR ---
PT SIMÓN ASSISTED OOB TO CHAIR AFTER WALKING WITH WALKER A FEW STEPS, TOLERATED WELL. CALL LIGHT IN REACH.
[2020-02-17] MEDS: cefTRIAXone 1GM/50ML D5W 50 ML IV SCH (09:52)
[2020-02-17] MEDS: PANTOPRAZOLE 40 MG/10 ML VIAL INJ IV SCH (09:52)
[2020-02-17] MEDS: SODIUM CHLOR 0.9% PF (SALINE LOCK) 10ML VIAL/SYR IV SCH ×2 (09:53→21:26)
[2020-02-17] MEDS: ENOXAPARIN SOD 40 MG/0.4 ML SYRINGE SC SCH (09:53)
--- NOTE | 2020-02-17 10:00 | NUR ---
DR VIDES AT BEDSIDE EXAMINED PATIENT AND NEW ORDERS RECEIVED.
--- NOTE | 2020-02-17 10:30 | NUR ---
BACK IN BED BY PT
--- NOTE | 2020-02-17 11:07 | NUR ---
FIDE KNOTT AT BEDSIDE TO PERFORM ABG AWARE PATIENT RIGHT ARM IS RESTRICTED
--- NOTE | 2020-02-17 11:20 | NUR ---
DR VIDES AWARE THAT PATIENT HAS NOT URINATED SINCE FENG REMOVED ON HOUSE CALLS NURSE AT 0300 AND HAS NO URGE. AWARE RN CANNOT FIND BLADDER SCANNER ON ALL HOSPITAL UNITS AT THIS TIME. DR AWARE NO BLADDER DISTENTION NOTED. OK TO PLACE FENG IF NEEDED.
[2020-02-17] MEDS ORDERED: IOHEXOL 350 MG/ML 100ML IJ ONE (11:37)
[2020-02-17] MEDS: SODIUM FERR GLUC 125 MG in NS 100 ML IV SCH (12:08)
--- NOTE | 2020-02-17 12:08 | NUR ---
Nutrition Followup Notes Wt: 84.2 kg Pt is sleeping with no family by bedside. pt is now advanced to clear liq diet off PN support with inadequate PO of 50% x 2 per RN doc Est Energy needs BW 79 [id number] kcals (23-25 kcal/kgBW), Est Protein needs: 79-86 gms/day (1.0-1.1 gm/kgBW). Will continue to monitor and reassess prn. LABS: CA 7.9 L, ALB 1.6 L GI: Pt had 1 BM today per RN note BS: 16 mod risk. Refer to wound assessment report for full details. PES: Altered nutrition related lab values r/t current chronic medical condition aeb mod hypoalb Comments Will continue to monitor PO intake, skin status, pertinent labs and weight trends. Will f/u in 2-3 days. 1) resume PN support to meet > 75% of needs if pt has inadequate PO. 2) Advance diet as medically feasible. 3) Consider prostat 1 packet bid along with ensure clear 1 carton bid. 4) Continue current plan of care
--- NOTE | 2020-02-17 12:26 | NUR ---
TAKEN TO AND FROM CT FOR ORDERED CHEST CT WITH CONTRAST TO R/O PE. PATIENT TOLERATED PROCEDURE WELL. URINATED IN URINAL 200 ML DARK PAULETTE URINE UPON ARRIVAL BACK TO ROOM. VS STABLE.
--- NOTE | 2020-02-17 13:52 | NUR ---
DR HEATON AT BEDSIDE, DR AWARE PATIENT HAS BEEN HICCUPING ALL SHIFT. DR AWARE PATIENT WENT TO CT OF CHEST TO R/O PE PER DR PATRICIA ORDER EARLIER. MADE AWARE TO LOOK AT CT IMAGE DUE TO RN CONCERN BUT RADIOLOGIST REPORT PENDING. DR REVIEWED CT IMAGE STATED PATIENT HAS HIATAL HERNIA AND NEW ORDER RECEIVED TO DECOMPRESS THE STOMACH WITH NGT INSERTION TO LCS AND TO KEEP PATIENT NPO. DR AWARE SURGICAL INCISION DRAINING X 2 SATURATED DRESSINGS THIS SHIFT WITH SEROSANGUINEOUS DRAINAGE THIS SHIFT. DR ORDERED WOUND CONSULT AND WOUND VAC PLACEMENT. STATED TO KEEP IN [facility] NO DOWNGRADE TO TELE FLOOR.
[2020-02-17] MEDS: ONDANSETRON HCL 4 MG/2 ML VIAL IV PRN (14:28)
[2020-02-17] MEDS ORDERED: AMIODARONE HCL 150 MG in D5W 5% 100 ML IV ONE (15:15)
[2020-02-17] MEDS ORDERED: AMIODARONE 450mg/250ml AE 250 ML IV SCH (15:30)
--- NOTE | 2020-02-17 15:59 | NUR ---
ATTEMPTED TO PLACE NGT X 1 WITHOUT SUCCESS AND KEPT COILING IN PATIENT MOUTH, PATIENT HAD SEVERED NAUSEA/VOMITING, ZOFRAN GIVEN AT THAT TIME, REASSESSED NOW AND NO NAUSEA AT THIS TIME. PATIENT WENT INTO AFIB RVR 130-150 AT THE TIME WITH BP STABLE. DENIED ANY CHEST PAIN. CT SCAN REPORR READ BY RN AND NOTIFIED DR HEATON AND DR VIDES OF RESULTS IMMEDIATELY. RN SPOKE WITH DR BROCK REGARDING AFIB RVR. AMIO BOLUS/AMIO GTT STARTED PER DR BROCK OK BUT DR BROCK STATED TO CALL COMPLAINT SUPERVISOR CARDIOLOGY- DR VIDES AWARE. DR HEATON ORDERED FOR RN TO ATTEMPT AGAIN AT NGT PLACEMENT.
--- NOTE | 2020-02-17 17:14 | NUR ---
WOUND CARE NOTE: Wound care in to see patient to apply wound vac to patient's abdominal wound. Patient is 89 years old male with admitting diagnosis of GI Bleed. Patient is undergone Exploratory Laparoscopic, Lysis of Adhesions, Rt. Hemicolectomy by Dr. María Lal. patient is resting in SDU low air loss bed in Rm. 263. He's awake, alert and oriented. He's in no stated pain at this time. Patient seen by Dr. María Lal earlier and informed of NPWT. Removed patient's abdominal wound dressing. Patient's medial abdominal incision measuring 14.5cm with 21 marie. Incision has mild erythema and draining moderate amount of serous drainage. RAZA Ohara at bedside reported that dressing removed at this time is the third time dressing change as of today. Cleansed patient's abdominal wound with wound cleanser, patted dry with gauze. Photograph of abdominal wound are taken for reference. Applied Cavilon skin protectant to pascual wound and applied transparent dressing. Applied one piece black granu foam dressing along abdominal incision. Secured foam dressing with transparent drape, applied trac pac and connected tubings. Run wound vac at 125 mmHg continuos per MD order. Patient tolerated well. Bed in low position, call mendez on hand, all safety precautions in placed. Addendum: 02/17/20 at 1744 by Gladys oCok RN Amended: Links added.
--- NOTE | 2020-02-17 17:22 | NUR ---
ATTEMPTED [address] NGT WITH PATIENT VERBAL CONSENT WITHOUT SUCCESS, NGT KEEPS COILING INTO MOUTH ALL WHILE PATIENT SITTING UPRIGHT AND EDUCATED ON PROCEDURE. RENNY PERALTA RN AWARE AND STATED SHE WILL ATTEMPT WITH PATIENT CONSENT.
--- NOTE | 2020-02-17 18:36 | NUR ---
SPOKE WITH DR HEATON, AWARE RN UNABLE TO SUCCESSFULLY PLACE NGT AND THAT PATIENT KEEPS VOMITING ON THE ATTEMPTS OF NGT PLACEMENT AND HIGH RISK FOR ASPIRATION IN WHICH SUCTION HAS BEEN SET UP AT BEDSIDE ENTIRE SHIFT. STATED TO CALL DR MCKINNEY TO PERFORM EGD AND POSSIBLE NGT PLACEMENT. DR MCKINNEY WAS PAGED AND RN SPOKE WITH HIM AND BUT DR MCKINNEY REFUSING TO PERFORM ANY ANY PROCEDURE ON PATIENT AND RECOMMENDS SURGICAL INTERVENTION. RN CALLED DR HEATON BACK AND MADE AWARE OF DR MCKINNEY REFUSAL AND RECOMMENDATION FOR SURGERY. NO NEW ORDER FROM DR HEATON STATED PATIENT IS FINE.
--- NOTE | 2020-02-17 19:06 | NUR ---
PAGED DR VIDES AWARE OF DR MCKINNEY RECOMMENDATION FOR SURGERY, DR VIDES SPOKE WITH DR HEATON AND DR HEATON STATED HE WILL COME IN EARLY AM TO EVALUATE PATIENT FOR NGT PLACEMENT AND/OR POSSIBLE SURGERY. Addendum: 02/17/20 at 1910 by Lev Coelho RN NEW ORDER FOR STAT CONSULT FOR CARDIOLOGY FOR DR DUBON THIS WEEKEND ONLY UNTIL DR MCKINNEY WILL BE BACK ON WEDNESDAY TO SEE PATIENT. CANCEL TRANSFER TO [facility].
--- NOTE | 2020-02-17 19:37 | NUR ---
REPORT GIVEN TO ESTHELA PERSON
--- NOTE | 2020-02-17 20:00 | NUR ---
SHIFT OPENING NOTE RECEIVED PATIENT AWAKE ALERT AND ORIENTED X4. NO SOB, DISTRESS OR PAIN NOTED. ON 2L NC POX 93%. MID ABDOMINAL INCISION NOTED WITH WOUND VAC. AMIO DRIP AT 1MG/MIN. CURRENTLY NPO PER MD ORDER. PHYSICAL ASSESSMENT COMPLETED, SEE INTERVENTIONS. INSTRUCTED ON POC AND TO CALL FOR ASSIST NEEDED. BED IS IN THE LOWEST POSITION WITH SIDE RAILS UP X2, CALL LIGHT IS WITHIN REACH.
--- NOTE | 2020-02-17 20:00 | NUR ---
CHANGED BP TO Q15MIN DUE TO BEING ON AMIODARONE GTT, RN FORGOT TO CHANGE BP TIMING Q15MIN UPON STARTING AMIODARONE EARLIER, PATIENT BP TAKEN Q1H AND STABLE
[2020-02-17] MEDS: LATANOPROST 0.005 % OPTH(EYE) SOL 2.5ML EACHEYE SCH (21:26)
[2020-02-17] MEDS: AMIODARONE 450mg/250ml AE 250 ML IV SCH (21:26)
[2020-02-18] VITALS (9 sets, daily range): BP systolic 113–133; BP diastolic 60–75
[2020-02-18 04:25] LABS: BUN/Creatinine Ratio 24.2; Calcium 7.5 mg/dL (8.5-10.1); Potassium 3.4 mmol/L (3.5-5.1)
[2020-02-18 04:26] LABS: Basophils # (auto) 0 10 ^3/uL (0-0.2); Basophils % (auto) 0.2 % (0.0-2.0); Eosinophils # (auto) 0.5 10 ^3/uL (0-0.8); Hematocrit 26.7 % (41.0-53.0); Hemoglobin 8.6 g/dL (13.5-17.5); Lymphocytes # (auto) 0.8 10 ^3/uL (0.4-5.4); Lymphocytes % (auto) 6.6 % (10.0-50.0); Mean Corpuscular Hemoglobin 30.5 pg (28.0-32.0); Mean Corpuscular Hgb Conc. 32.1 g/dL (32.0-36.0); Monocytes # (auto) 1.2 10 ^3/uL (0-1.3); Monocytes % (auto) 10.8 % (0.0-12.0); Neutrophils # (auto) 9.1 10 ^3/uL (1.6-8.6); Neutrophils % (auto) 78.4 % (37.0-80.0); Nucleated Red Blood Cells % 0.1 %; Platelet Count (auto) 301 10^3/uL (140-450); Red Blood Cells 2.81 10^6/uL (4.5-5.90); Red Cell Distribution Width 19.1 % (11.8-14.3); White Blood Cell 11.5 10^3/uL (4.4-10.8)
--- NOTE | 2020-02-18 06:15 | NUR ---
MORNING HYGIENE CARE FULL BED BATH PERFORMED USING CHG WIPES. GOWN CHANGED. PARTIAL LINEN CHANGED. PATIENT REPOSITIONED FOR COMFORT. TOLERATED IT WELL.
--- NOTE | 2020-02-18 07:25 | NUR ---
END OF SHIFT REPORT GIVEN AND CARE ENDORSED TO SHERRON PERSON.
--- NOTE | 2020-02-18 07:35 | NUR ---
ASSESS- PT. LYING IN BED AWAKE, ALERT AND ORIENTED TIMES FOUR. NO PAIN OR DISCOMFORT. LUNGS CLEAR CHE. INSPIRATORY AND EXPIRATORY, DIMINISHED BASES CHE. NO SOB. O2 2L N/C. ABD. ROUND, SLIGHTLY DISTENDED, NON-TENDER. BOWEL SOUNDS HYPOACTIVE ALL FOUR QUADRANTS. NO N/V. ASKED PT. IF HE WAS PASSING FLATUS AND HE STATED "I DO NOT KNOW". MID-LINE ABD. INCISION WITH WOUND VAC IN PLACE, DSG. D/I. ABD. BINDER IN PLACE. VOIDS VIA URINAL WITHOUT DIFFICULTY. RADIAL PULSES STRONG, PALPABLE CHE. DORSALIS PEDAL PULSES STRONG, PALPABLE CHE. 1 PLUS EDEMA CHE. ANKLES/FT. NON-PITTING EDEMA ARMS CHE. SCD'S CHE LE. AMIODARONE GTT. AT 0.5 MG./MIN. SR, HR 60'S-70'S. CHE. BUTTOCKS WITH FLUID FILLED BLISTER WITH OPTIFOAM DSG. D/I.
--- NOTE | 2020-02-18 08:05 | NUR ---
BIJAN DASH Provider at bedside. GAVE UPDATE ON PT. NEW ORDERS RECEIVED.
--- NOTE | 2020-02-18 08:53 | NUR ---
DR. María HEATON CALLED. GAVE UPDATE ON PHONE ON PT. NEW ORDER RECEIVED. PT. OK TO HAVE SIPS OF WATER.
--- NOTE | 2020-02-18 09:08 | NUR ---
DR. MCKINNEY Provider/Hospitalist at bedside. GAVE UPDATE ON PT.
[2020-02-18] MEDS: cefTRIAXone 1GM/50ML D5W 50 ML IV SCH (09:11)
[2020-02-18] MEDS ORDERED: POTASSIUM CHLORIDE 60 MEQ, LIDOCAINE 1% (LOCAL ANESTH.) 6 ML in SODIUM CHL 0.9% 500 ML IV ONE (09:15)
--- NOTE | 2020-02-18 09:16 | NUR ---
WOUND VAC CHECK: Wound care in for wound vac daily monitoring. Patient's abdominal wound vac dressing remain intact and connected to Ulta Vac, functioning well at 125 mmHg continuos as ordered. Good seal noted, no leak detected. 100mL clear serous drainage noted in canister. Will continue to monitor.
[2020-02-18] MEDS: ENOXAPARIN SOD 40 MG/0.4 ML SYRINGE SC SCH (09:33)
[2020-02-18] MEDS: PANTOPRAZOLE 40 MG/10 ML VIAL INJ IV SCH (09:33)
[2020-02-18] MEDS: SODIUM CHLOR 0.9% PF (SALINE LOCK) 10ML VIAL/SYR IV SCH ×2 (09:33→22:13)
--- NOTE | 2020-02-18 10:00 | NUR ---
HOLD P.T. TODAY PER RN.
--- NOTE | 2020-02-18 12:00 | NUR ---
PT. TOLERATING SIPS OF H20. NO N/V. SWALLOWING WITHOUT DIFFICULTY.
[2020-02-18] MEDS: AMIODARONE 450mg/250ml AE 250 ML IV SCH (12:53)
[2020-02-18] MEDS: SODIUM FERR GLUC 125 MG in NS 100 ML IV SCH (12:53)
--- NOTE | 2020-02-18 15:43 | NUR ---
DR. María HEATON Provider/Hospitalist at bedside. GAVE UPDATE ON PT. NEW ORDERS RECEIVED.
--- NOTE | 2020-02-18 16:27 | NUR ---
DR. Scarlett DE LA PAZ Provider/Hospitalist at bedside. GAVE UPDATE ON PT.
--- NOTE | 2020-02-18 16:35 | NUR ---
PT. PLACED ON R/A. O2 SATS 92%-94%. NO SOB OR SIGNS OF RESP. DISTRESS.
--- NOTE | 2020-02-18 20:00 | NUR ---
SHIFT OPENING NOTE RECEIVED PATIENT AWAKE ALERT AND ORIENTED X4. NO SOB, DISTRESS OR PAIN NOTED. ON ROOM AIR POX 96%. MID ABDOMINAL INCISION NOTED WITH WOUND VAC. AMIO DRIP AT 0.5MG/MIN.PHYSICAL ASSESSMENT COMPLETED, SEE INTERVENTIONS. INSTRUCTED ON POC AND TO CALL FOR ASSIST NEEDED. BED IS IN THE LOWEST POSITION WITH SIDE RAILS UP X2, CALL LIGHT IS WITHIN REACH.
[2020-02-18] MEDS: LATANOPROST 0.005 % OPTH(EYE) SOL 2.5ML EACHEYE SCH (22:13)
[2020-02-19] VITALS: BP 117/68
[2020-02-19 04:00] VITALS: BP 124/69
[2020-02-19] MEDS: AMIODARONE 450mg/250ml AE 250 ML IV SCH (04:12)
[2020-02-19 04:23] LABS: Basophils # (auto) 0 10 ^3/uL (0-0.2); Basophils % (auto) 0.4 % (0.0-2.0); Eosinophils # (auto) 0.5 10 ^3/uL (0-0.8); Eosinophils % (auto) 4.5 % (0.0-7.0); Hemoglobin 8.5 g/dL (13.5-17.5); Lymphocytes # (auto) 0.6 10 ^3/uL (0.4-5.4); Mean Corpuscular Hemoglobin 30.4 pg (28.0-32.0); Mean Corpuscular Hgb Conc. 32.7 g/dL (32.0-36.0); Mean Corpuscular Volume 92.9 fL (80.0-100.0); Monocytes # (auto) 0.9 10 ^3/uL (0-1.3); Monocytes % (auto) 9.1 % (0.0-12.0); Neutrophils # (auto) 8.3 10 ^3/uL (1.6-8.6); Nucleated Red Blood Cells % 0.1 %; Platelet Count (auto) 358 10^3/uL (140-450); White Blood Cell 10.4 10^3/uL (4.4-10.8)
[2020-02-19 04:45] LABS: Calcium 7.3 mg/dL (8.5-10.1); Potassium 3.8 mmol/L (3.5-5.1)
[2020-02-19 04:48] LABS: BUN/Creatinine Ratio 22.6
--- NOTE | 2020-02-19 05:30 | NUR ---
MORNING HYGIENE CARE FULL BED BATH PERFORMED USING CHG WIPES. GOWN CHANGED. PARTIAL LINEN CHANGED. PATIENT REPOSITIONED FOR COMFORT. TOLERATED IT WELL.
--- NOTE | 2020-02-19 07:10 | NUR ---
Assumed care of pt., report received per RAZA Flores. No distress noted, pt. reading sinus rhythm on monitor, will cont.to monitor for any changes, call mendez in reach, assessment ongoing.
--- NOTE | 2020-02-19 07:15 | NUR ---
END OF SHIFT REPORT GIVEN AND CARE ENDORSED TO MERCEDES PERSON.
[2020-02-19 08:00] VITALS: BP 123/76
[2020-02-19] MEDS: cefTRIAXone 1GM/50ML D5W 50 ML IV SCH (09:21)
[2020-02-19] MEDS: ENOXAPARIN SOD 40 MG/0.4 ML SYRINGE SC SCH (09:32)
[2020-02-19] MEDS: PANTOPRAZOLE 40 MG/10 ML VIAL INJ IV SCH (09:32)
[2020-02-19] MEDS: SODIUM CHLOR 0.9% PF (SALINE LOCK) 10ML VIAL/SYR IV SCH ×2 (09:32→20:16)
[2020-02-19] MEDS ORDERED: AMIODARONE HCL 200 MG TAB PO ONE (10:30)
--- NOTE | 2020-02-19 11:50 | NUR ---
WOUND VAC CHECK: Wound care in for wound vac daily monitoring. Patient's abdominal wound vac dressing remain intact and connected to Ulta Vac, functioning well at 125 mmHg continuous as ordered. Good seal noted, no leak detected. Will continue to monitor.
[2020-02-19 12:00] VITALS: BP 113/68
[2020-02-19] MEDS ORDERED: ACET-1156 PO (12:37)
[2020-02-19] MEDS ORDERED: HYDR-4833 PO (12:37)
[2020-02-19] MEDS ORDERED: AMIO200T4 PO (12:37)
--- NOTE | 2020-02-19 12:58 | NUR ---
1245 02/19/20 - Faxed to [facility]/ at [phone] face sheet, order for home health for safety eval, PT, wound care, refer patient to tertiary center as outpatient for evaluation of hiatal hernia within 1 week of discharge, H/P, discharge summary, current clinical notes. [facility] who confirmed receiving all faxed documentation. Pending review and setting up appointment, and home health.
--- NOTE | 2020-02-19 14:00 | NUR ---
Dr. Woody ([facility]) notified of pt condition, per Dr. Woody pt. can be discharged to home, no distress noted, pt. VSS, will cont.to monitor for any changes, assessment ongoing.
--- NOTE | 2020-02-19 15:00 | NUR ---
Dr. Mosher (GI) notified of pt condition, per Dr. Mosher pt. can be discharged to home, no distress noted, pt. VSS, will cont.to monitor for any changes, assessment ongoing.
--- NOTE | 2020-02-19 15:19 | NUR ---
Dr. Lal ([facility]) notified of pt condition, per Dr. Lal pt. can be discharged to home, no distress noted, pt. VSS, will cont.to monitor for any changes, assessment ongoing.
--- NOTE | 2020-02-19 15:23 | NUR ---
Dr. Stark ([facility]) notified of pt condition, per Esther Kinney NP pt. can be discharged to home, no distress noted, pt. VSS, will cont.to monitor for any changes, assessment ongoing.
--- NOTE | 2020-02-19 15:50 | NUR ---
D/C Planning Per social service consult for walker, home health safety evaluation, wound care, physical therapy and WOUND VAC. Faxed clinical information to [facility] and [facility] include [facility] beds at the [facility]. Per Bhavani with [facility] walker will be deliver to bedside at 15:45. Per Bhavani with [facility] include 234 beds at the [facility] patient has been accepted and service to start within 24-48hrs. Regarding WOUND VAC informed RAZA Patton [employer] form needs to be completed by WOUND Nurse and sign by doctor before social service can complete order.
[2020-02-19 16:00] VITALS: BP 145/79
--- NOTE | 2020-02-19 17:00 | NUR ---
New Wound VAC canister placed
--- NOTE | 2020-02-19 17:28 | NUR ---
SBAR received from RAZA Patton. Took over care for remainder of shift.
--- NOTE | 2020-02-19 17:30 | NUR ---
No distress noted, pt. SBAR given to RAZA Pennington. VS noted stable, care of pt. assumed per RAZA Pennington. RAZA Carrillo relinquished care and maxine off.
--- NOTE | 2020-02-19 19:19 | NUR ---
END OF SHIFT NOTE Report given to NOC RNFrancesca. Endorsed care of patient.
[2020-02-19 20:00] VITALS: BP 136/81
--- NOTE | 2020-02-19 20:00 | NUR ---
SHIFT OPENING NOTE RECEIVED PATIENT AWAKE ALERT AND ORIENTED X4. NO SOB, DISTRESS OR PAIN NOTED. ON ROOM AIR POX 96%. MID ABDOMINAL INCISION NOTED WITH WOUND VAC. PHYSICAL ASSESSMENT COMPLETED, SEE INTERVENTIONS. INSTRUCTED ON POC AND TO CALL FOR ASSIST NEEDED. BED IS IN THE LOWEST POSITION WITH SIDE RAILS UP X2, CALL LIGHT IS WITHIN REACH.
[2020-02-19] MEDS: LATANOPROST 0.005 % OPTH(EYE) SOL 2.5ML EACHEYE SCH (20:16)
[2020-02-20] VITALS: BP 116/83
[2020-02-20 04:00] VITALS: BP 128/92
--- NOTE | 2020-02-20 04:00 | NUR ---
MORNING HYGIENE CARE FULL BED BATH PERFORMED USING CHG WIPES. GOWN CHANGED. PARTIAL LINEN CHANGED. PATIENT REPOSITIONED FOR COMFORT. TOLERATED IT WELL.
--- NOTE | 2020-02-20 07:20 | NUR ---
END OF SHIFT REPORT GIVEN AND CARE ENDORSED TO KADEN PERSON.
--- NOTE | 2020-02-20 07:45 | NUR ---
OPENING SHIFT NOTE Received report from LUIS M Ma. Assumed care of patient. Received patient lying in bed, connected to bedside monitor with alarms in place. Patient is A&Ox4, denies pain and has no s/s of distress noted. Patient with Wound vac to midline abdominal incision, 125mm Hg suction, ~125ml serosanguineous drainage noted in canister. Patient with two PIVs, #20 Left wrist, #20 left forearm, both patent and intact. Patient using urinal independently. Bed in lowest position, rails x2 up and call light within reach. Plan for patient to be discharged home once wound vac is arranged for home, still to sign paperwork. Updated on plan of care. Will continue to monitor.
[2020-02-20 08:00] VITALS: BP 121/86
--- NOTE | 2020-02-20 08:30 | NUR ---
WOUND CARE NOTE: IN TO CHECK WOUND VAC TO INCISION AT THIS TIME. PATIENT HAS GOOD SUCTION, NO LEAKS DETECTED. APPROXIMATELY 100/CC DRAINAGE NOTED WITHIN VACUTAINER. HOME WOUND VAC IS PENDING AUTHORIZATION/DELIVERY. WOUND CARE TEAM WILL CONTINUE TO MONITOR.
--- NOTE | 2020-02-20 10:00 | NUR ---
T/C from Dr Audelia Bosch. Notified MD that Dr Bharati Lal wants patient to go home with home wound vac and that paperwork that requires his signature is in front of the chart and discharge will be delayed until social sciences lecturer can arrange home wound vac. MD states he will be in the hospital within the next hour or so to sign.
[2020-02-20] MEDS: cefTRIAXone 1GM/50ML D5W 50 ML IV SCH (10:48)
[2020-02-20] MEDS: SODIUM CHLOR 0.9% PF (SALINE LOCK) 10ML VIAL/SYR IV SCH ×2 (10:50→21:37)
[2020-02-20] MEDS: PANTOPRAZOLE 40 MG/10 ML VIAL INJ IV SCH (10:50)
[2020-02-20] MEDS: AMIODARONE HCL 200 MG TAB PO SCH (10:50)
[2020-02-20] MEDS: ENOXAPARIN SOD 40 MG/0.4 ML SYRINGE SC SCH (10:50)
[2020-02-20 12:00] VITALS: BP 99/69
--- NOTE | 2020-02-20 12:40 | NUR ---
Paged Dr Audelia Bosch in regards to possible downgrade to tele while waiting for home wound vac.
--- NOTE | 2020-02-20 13:36 | NUR ---
Paged Dr Audelia Bosch again about possible downgrade.
--- NOTE | 2020-02-20 13:42 | NUR ---
1300 02/20/20 - Contacted by [facility]/[employer] community case manager Fouzia stated patient has f/u appointment with Dr Lal on 03/01/2020 at 1115 AM. Informed nurse Aditi of the above information.
--- NOTE | 2020-02-20 14:11 | NUR ---
MD Dr Audelia Bosch to see patient. Paperwork signed for home wound vac. Orders received to downgrade to tele. FRANCINE Grace and SRINIVAS Turcios aware. Notified BAYLEE Medina that paperwork signed.
--- NOTE | 2020-02-20 15:15 | NUR ---
TRANSFER Patient transferred to 273[address] on tele box and with all personal belongings after report given to RAZA Beckham. Patient's , Kristen notified and updated on transfer and discharge planning.
--- NOTE | 2020-02-20 15:28 | NUR ---
D/C Planning Faxed order to [employer] requesting for WOUND VAC to be deliver to bedside.
--- NOTE | 2020-02-20 15:30 | NUR ---
TRANSFER RECEIVED PATIENT FROM [facility]. PATIENT HAS WOUND VAC TO ANTERIOR MEDIAL ABDOMEN. 150 ML SANGUINOUS FLUID IN WOUND VAC. PATIENT NO S/S OF DISTRESS, SOB NO C/O PAIN. BED IN LOWEST/LOCKED POSITION, BED RAILS UP X2, CALL LIGHT WITHIN REACH
[2020-02-20 16:53] VITALS: BP 106/49
--- NOTE | 2020-02-20 20:00 | NUR ---
OPENING NOTE Received report from RNAnna. Patient is A&O X's 4 with no s/s of distress. Patient has wound vac to anterior medial abdomen. Incision is dry and intact. abdominal binder is on. IS at bedside. Bed is in lowest/locked position with side rails up X's 2 and call light is within reach of patient. Will continue care.
[2020-02-20] MEDS: LATANOPROST 0.005 % OPTH(EYE) SOL 2.5ML EACHEYE SCH (21:36)
[2020-02-20 22:00] VITALS: BP 138/77
--- NOTE | 2020-02-21 05:40 | NUR ---
MRSA SWAB OBTAINED AND SENT TO LAB FOR MRSA SWAB ON DISCHARGE
[2020-02-21 06:19] VITALS: BP 137/81
--- NOTE | 2020-02-21 07:45 | NUR ---
OPENING SHIFT NOTE Received report from NOC. Assumed care of patient. Patient is A&Ox4, denies pain and has no s/s of distress noted. Patient with Wound vac to midline abdominal incision, 125mm Hg suction, ~250ml serosanguineous drainage noted in canister. Bed in lowest position, rails x2 up and call light within reach. Updated on plan of care. Will continue to monitor.
--- NOTE | 2020-02-21 08:30 | NUR ---
BREAKFAST PATIENT REFUSING TO EAT BREAKFAST, "STATING HE CAN'T KEEP ANYTHING DOWN." WILL CONTINUE TO MONITOR
[2020-02-21 09:00] VITALS: BP 121/78
[2020-02-21] MEDS: SODIUM CHLOR 0.9% PF (SALINE LOCK) 10ML VIAL/SYR IV SCH ×2 (09:10→22:29)
[2020-02-21] MEDS: PANTOPRAZOLE 40 MG/10 ML VIAL INJ IV SCH ×2 (09:32→22:30)
[2020-02-21] MEDS: AMIODARONE HCL 200 MG TAB PO SCH (09:32)
[2020-02-21] MEDS: cefTRIAXone 1GM/50ML D5W 50 ML IV SCH (09:32)
[2020-02-21] MEDS: ENOXAPARIN SOD 40 MG/0.4 ML SYRINGE SC SCH (09:33)
--- NOTE | 2020-02-21 10:30 | NUR ---
MD ROUNDS DR MCKINNEY AT BEDSIDE
--- NOTE | 2020-02-21 10:50 | NUR ---
WOUND VAC CHECK: Wound care in for wound vac daily monitoring. Patient is sitting on a chair in Rm. 273B. Patient's abdominal wound vac dressing remain intact and connected to Ulta Vac, functioning well at 125 mmHg continuos as ordered. Good seal noted, no leak detected. 250 mL clear serous drainage noted in canister. Will continue to monitor.
--- NOTE | 2020-02-21 11:30 | NUR ---
EMESIS PATIENT VOMITING CLEAR LIQUID. NO C/O PAIN, DISTRESS. STATING "HE JUST FEELS PRESSURE." WILL MEDICATE PER MD ORDERS
[2020-02-21] MEDS: ONDANSETRON HCL 4 MG/2 ML VIAL IV PRN ×3 (11:47→22:29)
[2020-02-21 13:00] VITALS: BP 103/60
--- NOTE | 2020-02-21 14:20 | NUR ---
EMESIS PATIENT VOMITING BROWN LIQUID AFTER DRINKING ENSURE AND EATING APPLESAUCE FOR LUNCH. NO C/O PAIN, DISTRESS. STATING "HE JUST FEELS MISERABLE." PATIENT NOT DUE FOR NAUSEA/VOMITING MEDICATION AT THIS TIME. LEFT MESSAGE WITH DR Audelia TONY RE: PATIENT UNABLE TO TOLERATE DIET. AWAITING RETURN CALL
--- NOTE | 2020-02-21 14:26 | NUR ---
D/C Planning Received a call from Vincent with [facility] advising me order has been approved and they will be delivering WOUND VAC between 4-7pm. Informed RAZA Botello.
--- NOTE | 2020-02-21 15:40 | NUR ---
Audelia TONY ROUNDING. MADE AWARE OF PATIENT EMESIS. PER Audelia TONY: "PATIENT LARGE HIATAL HERNIA IS CAUSING EMESIS, AND PATIENT NEEDS PUREED OR SOFT DIET TO HELP WEIGH DOWN TO DIGEST" PATIENT EDUCATED ON DIET. PATIENT ALSO STATING "HE FEELS COMFORTABLE GOING HOME AT THIS TIME." WILL NOTIFY OF PATIENT'S WISHES AND STATUS
--- NOTE | 2020-02-21 16:41 | NUR ---
1433 02/21/20 - Contacted by [facility] case assembler Fouzia who provided authorization for [employer] wound vac is [id number], POC for [facility] is Russell who can be reached at [phone].
--- NOTE | 2020-02-21 16:50 | NUR ---
FAMILY PASSWORD OBTAINED. UPDATED , VARSHA, ON PATIENT STATUS. PER VARSHA; "SHE WOULD LIKE PATIENT TO BE TRANSFERRED TO A HIGHER LEVEL OF CARE. SHE DOESN'T FEEL COMFORTABLE WITH PATIENT COMING HOME AT THIS TIME NOT TOLERATING DIET."
[2020-02-21 17:00] VITALS: BP 115/74
--- NOTE | 2020-02-21 17:50 | NUR ---
TRANSFER REQUEST PATIENT REQUESTING TRANSFER TO HIGHER LEVEL OF CARE. LEFT MESSAGE WITH DR Audelia TONY AND Bharati HEATON RE: TRANSFER. AWAITING RETURN CALL
[2020-02-21] MEDS: Ensure Enlive Strawberry 8oz Bottle PO SCH (18:05)
--- NOTE | 2020-02-21 18:05 | NUR ---
NAUSEA PATIENT REQUESTING ZOFRAN, STATING "I THINK IT HELPS WITH EATING." MEDICATED PER EMAR. WILL CONTINUE TO MONITOR
--- NOTE | 2020-02-21 18:09 | NUR ---
Audelia TONY INFORMED MD OF PATIENT'S REQUEST FOR HIGHER LEVEL OF CARE. PER; DR Audelia TONY; CONTACT DR Bharati HEATON RE: TRANSFER WILL CONTINUE TO MONITOR
--- NOTE | 2020-02-21 18:11 | NUR ---
Bharati HEATON SPOKE WITH DR Bharati HEATON RE: PATIENT TRANSFER TO HIGHER LEVEL OF CARE. PER DR Bharati HEATON; HE WILL SEE THE PATIENT TO DISCUSS POC. WILL CONTINUE TO MONITOR
--- NOTE | 2020-02-21 18:15 | NUR ---
LEFT ARM PATIENT LEFT ARM NOTED TO BE SWOLLEN AND RED, NOT HOT TO TOUCH. PATIENT HAS NO C/O PAIN AT THIS TIME. WILL NOTIFY
--- NOTE | 2020-02-21 18:26 | NUR ---
Bharati HEATON RECEIVED CALL FROM DR Bharati HEATON RE: PATIENT TRANSFER. PER DR Bharati HEATON; "HOLD PATIENT DISCHARGE AND HE WILL REASSESS PATIENT POC TOMORROW MORNING" MADE Audelia TONY AND FAMILY AWARE
--- NOTE | 2020-02-21 18:30 | NUR ---
MARITA KIRKLAND MD RE: DR Bharati HEATON'S PHONE CALL AND RE: PATIENT LEFT ARM RED AND SWOLLEN, NOT HOT TO TOUCH. AWAITING RETURN CALL
--- NOTE | 2020-02-21 19:30 | NUR ---
Opening Shift Note Report received from daysctft. Patient verbalizing he did not tolerate food. Wound vac intact, no leaking noted, canister at 250 ml tan. Per report, patient not cleared by María Lal for discharge and will be seen tomorrow. Assumed care of patient, awake and alert. Instructed on POC and to call for assist PRN, will continue to monitor for changes Q1hr and PRN.
[2020-02-21 22:00] VITALS: BP 133/76
[2020-02-21] MEDS: LATANOPROST 0.005 % OPTH(EYE) SOL 2.5ML EACHEYE SCH (22:30)
[2020-02-21] MEDS: HYDROmorphone HCL 2 MG/ML VL IV PRN (23:00)
[2020-02-22] VITALS (20 sets, daily range): BP systolic 87–148; BP diastolic 51–87
[2020-02-22] MEDS: ONDANSETRON HCL 4 MG/2 ML VIAL IV PRN ×2 (02:15→07:04)
[2020-02-22] MEDS: HYDROmorphone HCL 2 MG/ML VL IV PRN ×2 (03:26→07:04)
--- NOTE | 2020-02-22 07:30 | NUR ---
Patient had been given pain medication and nausea medication as needed for pain and nausea, as ordered by MD. All questions and concerns addressed. All needs attended to. Patient verbalized medication helps for some time, but pain and nausea would recur. Patient verbalized symptom happened after eating, that he did not tolerate his food. Surgeon to see patient sometime today. Report given to oncoming RN.
[2020-02-22] MEDS: Ensure Enlive Strawberry 8oz Bottle PO SCH ×2 (08:00→18:00)
--- NOTE | 2020-02-22 08:35 | NUR ---
SPOKE WITH DR. SHEEHAN FOR DC CLEARANCE, PER DR. SHEEHAN PT IS CLEARED, IF PT IS NOT BLEEDING HE RECOMMEND ELIQUIS 5MG PO BID FOR 1 MONTH.
--- NOTE | 2020-02-22 09:10 | NUR ---
WOUND VAC CHECK: Wound care in for wound vac daily monitoring. Patient is resting in bed Rm. 273B. Patient's abdominal wound vac dressing remain intact and connected to Ulta Vac, functioning well at 125 mmHg continuos as ordered. Good seal noted, no leak detected. 400 mL clear serous drainage noted in canister. Canister changed. Will continue to monitor.
[2020-02-22] MEDS: SODIUM CHLOR 0.9% PF (SALINE LOCK) 10ML VIAL/SYR IV SCH ×2 (09:19→22:00)
[2020-02-22] MEDS: PANTOPRAZOLE 40 MG/10 ML VIAL INJ IV SCH (09:19)
[2020-02-22] MEDS: ENOXAPARIN SOD 40 MG/0.4 ML SYRINGE SC SCH (09:19)
[2020-02-22] MEDS: cefTRIAXone 1GM/50ML D5W 50 ML IV SCH (09:19)
[2020-02-22] MEDS: AMIODARONE HCL 200 MG TAB PO SCH (09:20)
--- NOTE | 2020-02-22 09:30 | NUR ---
WOUND VAC DELIVERED AT BEDSIDE, CANISTER CHANGED BY WOUND CARE NURSE.
--- NOTE | 2020-02-22 10:00 | NUR ---
DR. HEATON INSERTED NG TUBE TO RIGHT NARES ON LOW INTERMITTENT SUCTION, RECEIVED ORDER TO INSERT PICC LINE AND START TPN PER PHARMACY.
[2020-02-22 12:04] LABS: Mean Corpuscular Hemoglobin 30.4 pg (28.0-32.0); Mean Corpuscular Hgb Conc. 31.9 g/dL (32.0-36.0)
[2020-02-22 12:05] LABS: Hematocrit 31.4 % (41.0-53.0); Mean Corpuscular Volume 95.3 fL (80.0-100.0); Platelet Count (auto) 709 10^3/uL (140-450); Red Cell Distribution Width 19.6 % (11.8-14.3); White Blood Cell 24.6 10^3/uL (4.4-10.8)
[2020-02-22 12:22] LABS: Band Neutrophils % (manual) 0; Basophils % (manual) 0 (0.0-2.0); Blast Cells 0; Metamyelocytes % 0; Monocytes % (manual) 0 (0-12); Myelocytes % 0; Promyelocytes % 0; Reactive Lymphocytes 0
--- NOTE | 2020-02-22 12:26 | NUR ---
Nutrition Followup Notes Wt: 82.6 kg Pt is sleeping with no family by bedside. pt is currently NPO as he was not able to tolerate his PO per RN. Est [employer] needs BW 79 [id number] kcals (23-25 kcal/kgBW), Est Protein needs: 79-86 gms/day (1.0-1.1 gm/kgBW). Will continue to monitor and reassess prn. LABS: CA 7.3 L, ALB 1.6 L BUN 28 H GI: Pt had 1 BM yesterday per RN note BS: 18 mod risk. Refer to wound assessment report for full details. PES: Altered nutrition related lab values r/t current chronic medical condition aeb mod hypoalb Comments Will continue to monitor NPO status, skin status, pertinent labs and weight trends. Will f/u in 2-3 days. 1) consider to resume PN support to meet > 75% of needs if pt continues to be NPO. 2) Advance diet as medically feasible. 3) Consider prostat 1 packet bid along with ensure clear 1 carton bid. 4) Continue current plan of care
[2020-02-22 12:39] LABS: INR 1.13 (0.9-1.15); Partial Thromboplastin Time 26.4 sec (23.0-31.2)
[2020-02-22 12:46] LABS: Eosinophils % (manual) 1 (0-7); Lymphocytes % (manual) 2 (10.0-50.0)
--- NOTE | 2020-02-22 12:55 | NUR ---
PAGED DR. DOMINGUEZ RE: PT HAS BEEN COUGHING AFTER NG TUBE WAS INSERTED BY DR. HEATON, PT IS REQUESTING FOR COUGH MEDICINE, O2 SAT IS 84%, PT STARTED ON 4 L O2 VIA NASAL CANNULA, WILL CONTINUE TO MONITOR.
--- NOTE | 2020-02-22 13:45 | NUR ---
1315 02/22/2020 - I was contacted [facility] assistant case manager Fouzia, who stated when patient is discharge he has an appointment with his PCP (Dr Jose) scheduled for 02/26/2020 at 0815.
--- NOTE | 2020-02-22 14:33 | NUR ---
Pt refused PT tx today. Addendum: 02/22/20 at 1434 by Rober Almanza PRESS BRAKE OPERATOR Amended: Links added.
--- NOTE | 2020-02-22 14:56 | NUR ---
PT SEEN BY DR. Scarlett TONY, PT'S UPDATED ON THE PLAN OF CARE AND FOR POSSIBLE HOSPICE CARE, PT AND VERBALIZED UNDERSTANDING, DR. TONY MADE AWARE PT'S O2 SAT WAS 84% ON ROOM AIR, PT STARTED ON 4L NASAL CANNULA O2 SAT AT 87%, RECEIVED ORDER FOR AZITHROMYCIN 500MG IVPB DAILY, PER DR. Scarlett TONY NO COUGH MEDICINE OF THIS TIME. WILL CONTINUE TO MONITOR.
[2020-02-22] MEDS ORDERED: AZITHROMYCIN 500MG/ 250ML 250 ML IV ONE (16:45)
--- NOTE | 2020-02-22 17:24 | NUR ---
paged Dr. Bosch re:BP 87/51 RE CHECKED 86/48, BOTH ARMS ARE SWOLLEN AND UNABLE TO INSERT PICCLINE FOR TPN, WBC 24.6, PLT 709. WAITING FOR CALL BACK.
--- NOTE | 2020-02-22 17:25 | NUR ---
PICC LINE UPON ASSESSMENT OF PATIENTS BUE, PTS RIGHT ARM IS SWOLLEN AND RESTRICTED FROM PREVIOUS DVT AND THE LEFT LOWER ARM IS +4 PITTING EDEMA. UNABLE TO SAFELY PLACE PICC LINE. PRIMARY RAZA GARAY PAGED L CECILY AND AWAITING A RETURN CALL. I RECOMMEND A CENTRAL LINE NEEDS TO BE PLACED BY AN MD FOR PATIENT TO START TPN. PTS BLOOD PRESSURE IS LOW 84/50 AT THIS TIME WITH ELEVATED WBC AND PLT. PRIMARY RAZA GARAY NOTIFIED MD OVER MESSAGE OF ALL ABOVE CONTENT.
--- NOTE | 2020-02-22 18:12 | NUR ---
[address] Audelia TONY RE: LOW BP, ELEVATED WBC AND PLATELET 709.
[2020-02-22] MEDS ORDERED: TPN PER PHARMACY 0 ML IV SCH (18:15)
--- NOTE | 2020-02-22 18:35 | NUR ---
DR. TONY CALLED, RECEIVED ORDER FOR BOLUS 1 LITER NS, U/A, URINE CULTURE, CT CHEST ABDOMEN AND PELVIS TO R/O ABSCESS, BMP, LACTIC ACID, BLOOD CULTUREX2, TRANSFER TO ICU, MEROPENEM 1 GRAM IVPB NOW THEN Q12HRS , VANCOMYCIN 1 GRAM IVPB NOW THEN PER PHARMACY, LEVOPHED IF NEEDED TO MAINTAIN MAP>65.
[2020-02-22] MEDS ORDERED: VANCOMYCIN 1GM/250ML 250 ML IV ONE (18:45)
[2020-02-22] MEDS ORDERED: SODIUM CHLORIDE 0.9% 1,000 ML IV ONE (18:45)
--- NOTE | 2020-02-22 19:03 | NUR ---
DR. HEATON UPDATED ON THE PT'S STATUS, DR. HEATON ORDERED TO TRANSFER THE PT TO ICU AND HE WILL PUT CENTRAL LINE.
--- NOTE | 2020-02-22 19:11 | NUR ---
NGT OUTPUT [id number].
--- NOTE | 2020-02-22 19:15 | NUR ---
report given to RAZA Rossi
[2020-02-22] MEDS ORDERED: AMINO ACID INFUSION IN D5W 2,000 ML IV SCH (20:00)
--- NOTE | 2020-02-22 20:00 | NUR ---
Bharati HEATON AT BED SIDE INSERTING CENTRAL LINE RIGHT FEMORAL TLC
--- NOTE | 2020-02-22 20:10 | NUR ---
PAGED Audelia TONY WHEEZING NOTED, PATIENT HAS WET PRODUCTIVE COUGH, MOSTLY SALIVA NOTED Bharati HEATON RECOMMENDED LASIX, BUT ASKED TO CALL Scarlett TONY FIRST.
--- NOTE | 2020-02-22 20:15 | NUR ---
Audelia TONY RETURNED CALL RECEIVED NEW ORDERS LASIX 20MG IV ONCE
[2020-02-22] MEDS ORDERED: FUROSEMIDE 20 MG/2 ML VIAL IV ONE (20:30)
[2020-02-22] MEDS ORDERED: MEROPENEM 1 GM IV SCH (22:00)
[2020-02-22] MEDS: LATANOPROST 0.005 % OPTH(EYE) SOL 2.5ML EACHEYE SCH (22:00)
[2020-02-22 22:44] LABS: Calcium 7.6 mg/dL (8.5-10.1); Potassium 5.4 mmol/L (3.5-5.1)
--- NOTE | 2020-02-22 22:44 | NUR ---
SWITCHED PATIENT FROM 6L NC TO SIMPLE MASK 8L PATIENT DESATURATING TO 88% ON 6L NC PATIENT BREATHING THROUGH HIS MOUTH SWITCHED PATIENT FROM NC TO SIMPLE MASK 8L, PATIENT SATURATING 95%
[2020-02-22 22:47] LABS: BUN/Creatinine Ratio 14.7
--- NOTE | 2020-02-22 22:59 | NUR ---
DECREASES SIMPLE MASK FROM 8L TO 6L PATIENT SATURATING 95% AND ABOVE
--- NOTE | 2020-02-22 23:00 | NUR ---
Bharati HEATON MD CALLED UPDATED ON PATIENTS STATUS AWARE OF PATIENT NOT PRODUCING URINE ABOUT 50CC
--- NOTE | 2020-02-22 23:43 | NUR ---
PATIENT IS TAKEN TO RADIOLOGY FOR CT CHEST/ABD/PL AND KUB PATIENT WAS PLACED ON SIMPLE MASK AND PORTABLE OXYGEN TANK. PORTABLE HEMODYNAMIC MONITOR, ACLS BOX. PATIENT IS TAKEN BY NELLI REYES (CHARGE NURSE) AND NEIL PERSON
[2020-02-23] VITALS (92 sets, daily range): BP systolic 88–128; BP diastolic 37–67
[2020-02-23] MEDS ORDERED: DEXTROSE (50%) 50ML SYRG IV SCH
[2020-02-23] MEDS: ACCU-CHEK COMFORT CURVE STRIP VI SCH ×4 (00:15→18:00)
[2020-02-23] MEDS: PANTOPRAZOLE 40 MG/10 ML VIAL INJ IV SCH ×3 (00:15→22:30)
[2020-02-23] MEDS: MEROPENEM 1GM IVPB 100 ML IV SCH ×2 (00:15→09:59)
[2020-02-23 04:58] LABS: Basophils # (auto) 0.1 10 ^3/uL (0-0.2); Basophils % (auto) 0.3 % (0.0-2.0); Eosinophils # (auto) 0 10 ^3/uL (0-0.8); Eosinophils % (auto) 0.2 % (0.0-7.0); Hematocrit 25.7 % (41.0-53.0); Hemoglobin 8.4 g/dL (13.5-17.5); Lymphocytes # (auto) 0.6 10 ^3/uL (0.4-5.4); Lymphocytes % (auto) 3.2 % (10.0-50.0); Mean Corpuscular Hemoglobin 30.4 pg (28.0-32.0); Mean Corpuscular Hgb Conc. 32.6 g/dL (32.0-36.0); Mean Corpuscular Volume 93.3 fL (80.0-100.0); Monocytes # (auto) 0.7 10 ^3/uL (0-1.3); Monocytes % (auto) 3.9 % (0.0-12.0); Neutrophils # (auto) 16.9 10 ^3/uL (1.6-8.6); Neutrophils % (auto) 92.4 % (37.0-80.0); Platelet Count (auto) 525 10^3/uL (140-450); Red Blood Cells 2.75 10^6/uL (4.5-5.90); Red Cell Distribution Width 19.7 % (11.8-14.3); White Blood Cell 18.2 10^3/uL (4.4-10.8)
--- NOTE | 2020-02-23 05:02 | NUR ---
PATIENT RESTING IN BED ON 10L SIMPLE MASK, SATURATING 100%, THERE ARE PERIODS WHEN HE IS DESATURATING TO LOW 80% (POOR WAVEFORM) NO SIGN OF SHORTNESS OF BREATH OR DISTRESS, LUNG SOUNDS ARE CLEAR. PATIENT STILL HAVE WET COUGH. AOX4.
[2020-02-23 05:12] LABS: Calcium 7.3 mg/dL (8.5-10.1); Potassium 4.8 mmol/L (3.5-5.1)
[2020-02-23 05:20] LABS: Albumin 1.6 g/dL (3.4-5.0); BUN/Creatinine Ratio 15.6; Bilirubin, Total 0.3 mg/dL (0.2-1.0); Magnesium 2.7 mg/dL (1.6-2.6); Phosphorus 5.4 mg/dL (2.5-4.90); Pre Albumin 5.8 mg/dL (20.0-40.0)
[2020-02-23] MEDS: InsuLIN REG 1unit/0.01ml Soln (100units/ml) SC SCH ×4 (06:00→18:00)
--- NOTE | 2020-02-23 07:18 | NUR ---
RN called Dr. Lal regarding CT results of abdomen and updated on status. No further orders at this time. Will continue to monitor.
[2020-02-23] MEDS: Ensure Enlive Strawberry 8oz Bottle PO SCH ×2 (08:00→18:00)
--- NOTE | 2020-02-23 08:30 | NUR ---
Scarlett Bear called for update. He will be speaking with regarding prognosis and possible hospice. Discussed urine output of 150 ml throughout p.m. shift and patient given 1 L bolus NS ( second one held).
--- NOTE | 2020-02-23 08:45 | NUR ---
Wound RN bedside. She will leave wound vac dressing bedside in preparation for dressing change if Dr. Lal orders it. RN will communicate to wound RN outcome of assessment if any skin parameters are altered.
[2020-02-23] MEDS: SODIUM CHLOR 0.9% PF (SALINE LOCK) 10ML VIAL/SYR IV SCH ×2 (09:59→22:30)
[2020-02-23] MEDS: AMIODARONE HCL 200 MG TAB PO SCH ×2 (10:00→10:07)
[2020-02-23] MEDS ORDERED: AZITHROMYCIN 500MG/ 250ML 250 ML IV SCH (10:00)
--- NOTE | 2020-02-23 10:00 | NUR ---
Pt has been upgraded to ICU status. Will resume PT once new orders are placed.
[2020-02-23] MEDS: ENOXAPARIN SOD 40 MG/0.4 ML SYRINGE SC SCH (10:01)
--- NOTE | 2020-02-23 10:02 | NUR ---
RN bedside. Repositioned, oral care and partial hygiene.
--- NOTE | 2020-02-23 10:08 | NUR ---
RN held PO amiodarone Patient on intermittent wall suction with complete bowel rest. Will discuss with physician.
--- NOTE | 2020-02-23 12:29 | NUR ---
PICC RN bedside, will hold order at this time because patient received femoral groin central line Dr. Lal.
--- NOTE | 2020-02-23 13:10 | NUR ---
Dr. Lal called for update on patients status. Discussed urine output, NG tube output and that patient has bile in oral secretions. New order for bronchoscopy and pulmonary consult.
--- NOTE | 2020-02-23 13:12 | NUR ---
Per Dr. Lal patient needs to be transferred to higher level of care for hernia repair. To pass on information to Dr. Gordon.
--- NOTE | 2020-02-23 13:26 | NUR ---
Dr. Mosher bedside. Updated on status, examination. No new orders.
--- NOTE | 2020-02-23 13:30 | NUR ---
RN bedside for NT suctioning. Oral secretions are clear, foamy and moderate amounts. Patient is coughing, able to clear secretions, suctioning with yankouer.
--- NOTE | 2020-02-23 13:30 | NUR ---
RN at bedside. Patient repositioned. Monitoring urine output and NG tube secretions. NG tube secretions dark green and thick. Patient increased respiratory status post NT suctioning.
--- NOTE | 2020-02-23 13:32 | NUR ---
RN left message with Dr. Woody for brochoscopy d/t aspiration of bowel contents per Dr. Lal.
--- NOTE | 2020-02-23 16:36 | NUR ---
1600 02/23/20 - Faxed to [facility] transfer center at [phone], [facility] transfer center at [phone] and [facility] at [phone], face sheet, order for transfer to higher level of care for complex surgical intervention for hiatal hernia, ventral abdominal hernia and inguinal hernia repairs, H/P, labs, meds, consults, imaging. Received facility authorization from [facility] [id number] and [facility] transportation is contracted with [facility]. Contacted [facility] at [phone] patient on " will call" list. Addendum: 02/23/20 at 1704 by Estela Jonas RN [phone] 02/23/20- Nurse assigned to patient informed of all information as stated above. Pending review and bed availability.
--- NOTE | 2020-02-23 17:20 | NUR ---
RN bedside for NT suctioning, audible rhonchi, patient coughing. Clear moderate secretions.
--- NOTE | 2020-02-23 18:00 | NUR ---
RN bedside for NT suctioning d/t patient copious secretions and coughing and audible rhonchi. Clear foamy secretions from NT suctioning , patients coughing decreases.
--- NOTE | 2020-02-23 18:13 | NUR ---
RN spoke with [facility]. Renae PERSON. She needed some additional information in which I provided to her. She states [facility] will likely be able to accept the patient by morning.
--- NOTE | 2020-02-23 18:18 | NUR ---
RN paged Dr. Francois Strong to get transfer orders.
--- NOTE | 2020-02-23 18:40 | NUR ---
RN called lab for COVID PCR for [facility].
--- NOTE | 2020-02-23 18:41 | NUR ---
RN spoke with regarding plans for transfer, reason for surgical transfer, aspiration of bowel contents into lungs and patients status.
[2020-02-23] MEDS ORDERED: TPN PER PHARMACY IV NR ×9 (20:00)
--- NOTE | 2020-02-23 20:00 | NUR ---
OPEN ASSUMED CARE OF MALE PT A&O X 4 WATCHING TELEVISION. PT ON SIMPLE MASK 6L. PT EXHIBITS MOIST COUGH FOR WHICH HE SELF SUCTIONS. SR ON LEADERSHIP INTERN. NGT TO R NARE DRAINING GREEN BILE. R. FEMORAL TLC IN PLACE 2 OF THREE PORTS PATENT. DRESSING CDI. FENG TO GRAVITY DRAINING CLEAR YELLOW URINE. PT WITH ANTERIOR ABDOMINAL MIDLINE INCISION WITH WOUND VAC TO SUCTION. ABDOMINAL BINDER IN PLACE. PT DENIES PAIN. BED IN LOWEST LOCKED POSITION. HOB ELEVATED 45 DEGREES FOR PT COMFORT. CALL GOMEZ IN REACH. BEDSIDE ALARMS ON AND AUDIBLE. WILL CONTINUE TO MONITOR.
--- NOTE | 2020-02-23 20:20 | NUR ---
DR LIRA CALLED UNIT REQUESTS TRANSFER PAPERWORK BE FAXED. [phone] REQUESTED PAPERWORK FAXED TO .
--- NOTE | 2020-02-23 20:30 | NUR ---
DR HEATON TO UNIT TO EVALUATE THE PATIENT.
--- NOTE | 2020-02-23 21:00 | NUR ---
DR BARR TO UNIT TO EVALUATE PT.
--- NOTE | 2020-02-23 22:00 | NUR ---
NGT PER DR HEATON XRAY SHOWS COILING OF NGT IN DISTAL ESOPHAGUS. MD ASKS THAT NGT BE RETRACTED. NGT CURRENTLY AT 80 CM AT THE NARE AND DRAINING GREEN BILE. RETRACTION TO 73 CM DONE. NGT COILED IN MOUTH. ATTEMPT TO RELEASE COIL AND RE INSERT. UNABLE TO RE INSERT WITHOUT COILING.
[2020-02-23] MEDS: LATANOPROST 0.005 % OPTH(EYE) SOL 2.5ML EACHEYE SCH (22:30)
[2020-02-23] MEDS: MEROPENEM 500MG IVPB 50 ML IV SCH (22:30)
--- NOTE | 2020-02-23 23:00 | NUR ---
ATTEMPT NGT RE INSERTION THIS ENVIRONMENTAL MONITORING TECHNICIAN ATTEMPTED NGT RE-INSERTION X 4. NO TRAUMA TO NARES. ICU PIPE STRAIGHTENER ATTEMPT TO INSERT NGT. BOTH NARE AND ORAL INSERTION ATTEMPTED. PT TOLERATED WELL WITH NO TRAUMA TO EITHER NARE OR ORAL CAVITY. HOWEVER UNABLE TO RE- INSERT NGT KEEPS COILING.
[2020-02-24] VITALS (46 sets, daily range): BP systolic 101–152; BP diastolic 53–74
[2020-02-24 05:45] LABS: Eosinophils # (auto) 0.2 10 ^3/uL (0-0.8); Hemoglobin 7.2 g/dL (13.5-17.5); Lymphocytes # (auto) 0.3 10 ^3/uL (0.4-5.4); Lymphocytes % (auto) 2.6 % (10.0-50.0); Neutrophils # (auto) 11.7 10 ^3/uL (1.6-8.6)
[2020-02-24 05:47] LABS: Basophils # (auto) 0 10 ^3/uL (0-0.2); Basophils % (auto) 0.4 % (0.0-2.0); Eosinophils % (auto) 1.2 % (0.0-7.0); Hematocrit 21.7 % (41.0-53.0); Mean Corpuscular Hemoglobin 30.8 pg (28.0-32.0); Mean Corpuscular Hgb Conc. 33.1 g/dL (32.0-36.0); Mean Corpuscular Volume 93.1 fL (80.0-100.0); Monocytes # (auto) 0.7 10 ^3/uL (0-1.3); Monocytes % (auto) 5.4 % (0.0-12.0); Neutrophils % (auto) 90.4 % (37.0-80.0); Platelet Count (auto) 444 10^3/uL (140-450); Red Blood Cells 2.34 10^6/uL (4.5-5.90); Red Cell Distribution Width 19.9 % (11.8-14.3); White Blood Cell 12.9 10^3/uL (4.4-10.8)
--- NOTE | 2020-02-24 05:59 | NUR ---
PAGED DR María HEATON CALL PLACED TO DR María HEATON TO UPDATE MD REGARDING INABILITY TO RE-INSERT NGT. MD NOTIFIED. NO FURTHER ORDERS RECEIVED.
[2020-02-24 06:00] LABS: INR 1.08 (0.9-1.15); Partial Thromboplastin Time 29.9 sec (23.0-31.2)
[2020-02-24] MEDS: ALBUTEROL SULF 2.5 MG/0.5ML(0.5%) NEB SOLN NEB SCH ×3 (06:00→18:23)
[2020-02-24] MEDS: IPRATROPIUM BROM 0.5 MG/2.5ML INH SOL NEB SCH ×3 (06:00→18:23)
[2020-02-24] MEDS: InsuLIN REG 1unit/0.01ml Soln (100units/ml) SC SCH ×5 (06:00→23:42)
[2020-02-24 06:02] LABS: Albumin 1.4 g/dL (3.4-5.0); Calcium 7.2 mg/dL (8.5-10.1); Magnesium 2.6 mg/dL (1.6-2.6); Potassium 3.6 mmol/L (3.5-5.1)
[2020-02-24 06:06] LABS: BUN/Creatinine Ratio 18.8; Bilirubin, Total 0.2 mg/dL (0.2-1.0); Phosphorus 3.4 mg/dL (2.5-4.90); Total Protein 4.7 g/dL (6.4-8.2)
[2020-02-24] MEDS: ACCU-CHEK COMFORT CURVE STRIP VI SCH ×5 (06:07→23:42)
--- NOTE | 2020-02-24 07:00 | NUR ---
Received report from RAZA Monge Patient asleep in bed, awaiting transfer to [facility] for surgical intervention for hiatal hernia. Patient is on Face mask 8L, RR 13 breathing pattern normal. Lung sounds wheezy and diminshed at bases, productive cough, clear. Patient in NSR, hemodynamically stable. Patient is afebrile, AO x4 , moves all extremities, follows commands. Abdominal incision medial with wound vac, patent, no signs of infection observable from intact dressing, serious drainange
[2020-02-24] MEDS: Ensure Enlive Strawberry 8oz Bottle PO SCH (08:00)
--- NOTE | 2020-02-24 08:00 | NUR ---
Patient awake in bed. AO x4, in no signs of distress. Patient repositioned, partial linen change, lopez care and oral care completed. Pain 0/10.
--- NOTE | 2020-02-24 08:54 | NUR ---
[facility] transfer center Please call when patient has bed. [phone] Beatris Francois functional manager.
--- NOTE | 2020-02-24 09:19 | NUR ---
RN called [facility]. They requested RN fax to them PCR result and that Dr. Islas phone number be provided.
--- NOTE | 2020-02-24 09:35 | NUR ---
RN faxed PCR results to [facility] [phone]. Called to confirm senior receptionist.
[2020-02-24] MEDS: SODIUM CHLOR 0.9% PF (SALINE LOCK) 10ML VIAL/SYR IV SCH ×2 (10:00→22:05)
[2020-02-24] MEDS: PANTOPRAZOLE 40 MG/10 ML VIAL INJ IV SCH ×2 (10:00→22:05)
[2020-02-24] MEDS: ENOXAPARIN SOD 40 MG/0.4 ML SYRINGE SC SCH (10:00)
[2020-02-24] MEDS: MEROPENEM 500MG IVPB 50 ML IV SCH ×2 (10:00→22:04)
--- NOTE | 2020-02-24 10:21 | NUR ---
Dr. Lal called for update on patient. He will swing buy to insert the NG tube again.
--- NOTE | 2020-02-24 10:24 | NUR ---
Dr. Lal He will be transferring physician to be called for Olga Ortega, on his cell phone number prefix [phone].
--- NOTE | 2020-02-24 10:33 | NUR ---
[facility] Called to confirm Dr. Islas phone number as physician is trying to get ahold of him. RN called Dr. Lal to confirm.
--- NOTE | 2020-02-24 10:33 | NUR ---
Pharmacy Called for scheduled Merripenum 500 mg.
--- NOTE | 2020-02-24 11:00 | NUR ---
Dr. Lal [place] physician consulted with Dr. Lal and decided the patient is too high risk for surgical repair of hiatel hernia at this time, at least until the small bowel obstruction is resolved. RN will notify [facility] [place] nurse case management and the patient.
--- NOTE | 2020-02-24 11:05 | NUR ---
RN bedside Active ROM exercise, patient teaching regarding mobility and bowel motility. Full hygiene provided, CHG bath and sponge bath. Skin care, optifoam on sacrum and scapulas. Patient encouraged to reposition self. Oral care completed. Patient sat up in chair position in bed and place on NC. Wound vac in place with abdominal binder.
--- NOTE | 2020-02-24 11:16 | NUR ---
RN spoke with regarding change in transfer status and reasons for the decision. All questions answered.
--- NOTE | 2020-02-24 11:18 | NUR ---
[facility] PERSON returned call to [facility] continuous pillowcase cutter to notify them of transfer cancellation. Left message for Beatris Barnett
--- NOTE | 2020-02-24 12:18 | NUR ---
Nutrition Followup Notes Wt: 80.0 kg Pt was awake, alert when rounded this morning. Pt is currently NPO with TPN nutrition support @ 44 ml/hr, providing 1160 kcals, 53g protein and 948 NPCs. PN support meets 59-64% of est energy needs and 62-67% of est protein needs. Pt reported feeling good, no distress. Est Energy needs BW 79 [id number] kcals (23-25 kcal/kgBW), Est Protein needs: 79-86 gms/day (1.0-1.1 gm/kgBW). Will continue to monitor and reassess prn. LABS: CA 7.2 L, ALB 1.4 L, Gluc 126 H, BUN 62 H, Creat 3.3 H GI: Pt had 1 BM on 02/16 per RN note BS: 15 mod risk. Refer to wound assessment report for full details. PES: Altered nutrition related lab values r/t current chronic medical condition aeb mod hypoalb Comments Will continue to monitor NPO status, skin status, pertinent labs and weight trends. Will f/u in 2-3 days. 1) consider to resume PN support to meet > 75% of needs if pt continues to be NPO. 2) Advance diet as medically feasible. 3) Consider prostat 1 packet bid along with ensure clear 1 carton bid. 4) Continue current plan of care
--- NOTE | 2020-02-24 12:45 | NUR ---
RN bedside Patient repositioned, oral care completed.
--- NOTE | 2020-02-24 13:04 | NUR ---
Dr. Gordon T. bedside New orders for 1 unit PRBC's, PT, downgrade to JAYRO only. Discussed potassium, no replacement at this time.
[2020-02-24] MEDS ORDERED: LORazepam 2MG/ML-1ML VIAL IV ONE (13:15)
--- NOTE | 2020-02-24 13:41 | NUR ---
Dr. Lal bedside New order to keep patient ICU and do not downgrade at this time. Will not replace NG tube at this time - but monitor for nausea and vomitting and hiccuping. Monitor for right lower inguinal hernia bulge when coughing and lying flat. New order for sips of water, and water with PO medications only, otherwise maintain patient NPO status.
--- NOTE | 2020-02-24 14:30 | NUR ---
RN bedside patient wound assessed, managing oral secretions.
--- NOTE | 2020-02-24 14:50 | NUR ---
DECREASED 02 TO 4LPM, SP02 99%.
--- NOTE | 2020-02-24 15:10 | NUR ---
RN bedside Patient repositioned. Sip of ice water, Patient tolerated it well with no cough.
--- NOTE | 2020-02-24 19:00 | NUR ---
RN report to RAZA Mckeon
[2020-02-24] MEDS ORDERED: TPN PER PHARMACY IV NR ×8 (20:00)
--- NOTE | 2020-02-24 20:00 | NUR ---
opening note patient resting in bed HOB 40 degrees watching tv on 3L NC, so sign of sob or distress, patient denies pain. bowel sounds present on left side, no sign of regurgitation or aspiration, patient denies n/v. wound vac is on and suctioning, wound vac dressing is intact, no sign of redness or drainage from around wound vac. patient has abdominal binder. unused picc lines easily flushed. patient repositioning himself in bed. Storey draining light yellow urine with sediment. see interventions for the rest of the assessment.
[2020-02-24] MEDS: LATANOPROST 0.005 % OPTH(EYE) SOL 2.5ML EACHEYE SCH (22:04)
[2020-02-25] VITALS (21 sets, daily range): BP systolic 100–148; BP diastolic 50–79
[2020-02-25 04:57] LABS: Basophils # (auto) 0.1 10 ^3/uL (0-0.2); Eosinophils # (auto) 0.2 10 ^3/uL (0-0.8); Hemoglobin 8.7 g/dL (13.5-17.5); Lymphocytes # (auto) 0.3 10 ^3/uL (0.4-5.4); Mean Corpuscular Volume 92.5 fL (80.0-100.0); Monocytes # (auto) 0.7 10 ^3/uL (0-1.3)
[2020-02-25 04:58] LABS: Basophils % (auto) 0.6 % (0.0-2.0); Eosinophils % (auto) 1.5 % (0.0-7.0); Hematocrit 26.4 % (41.0-53.0); Lymphocytes % (auto) 2.2 % (10.0-50.0); Mean Corpuscular Hemoglobin 30.6 pg (28.0-32.0); Mean Corpuscular Hgb Conc. 33.1 g/dL (32.0-36.0); Monocytes % (auto) 5.7 % (0.0-12.0); Neutrophils # (auto) 11.3 10 ^3/uL (1.6-8.6); Platelet Count (auto) 490 10^3/uL (140-450); Red Blood Cells 2.86 10^6/uL (4.5-5.90); Red Cell Distribution Width 18.1 % (11.8-14.3); White Blood Cell 12.5 10^3/uL (4.4-10.8)
[2020-02-25 05:12] LABS: Albumin 1.5 g/dL (3.4-5.0); Calcium 7.5 mg/dL (8.5-10.1); Magnesium 2.4 mg/dL (1.6-2.6)
[2020-02-25 05:15] LABS: BUN/Creatinine Ratio 25.1; Bilirubin, Total 0.2 mg/dL (0.2-1.0); Phosphorus 2.1 mg/dL (2.5-4.90); Total Protein 5.1 g/dL (6.4-8.2)
[2020-02-25] MEDS: InsuLIN REG 1unit/0.01ml Soln (100units/ml) SC SCH ×4 (06:00→17:24)
[2020-02-25] MEDS: ACCU-CHEK COMFORT CURVE STRIP VI SCH ×3 (06:37→17:23)
[2020-02-25] MEDS: IPRATROPIUM BROM 0.5 MG/2.5ML INH SOL NEB SCH ×3 (06:48→18:25)
[2020-02-25] MEDS: ALBUTEROL SULF 2.5 MG/0.5ML(0.5%) NEB SOLN NEB SCH ×3 (06:48→18:25)
--- NOTE | 2020-02-25 07:35 | NUR ---
OPENING SHIFT NOTE REPORT RECEIVED FROM LIGHT FIXTURE SERVICER RN, MORNING ASSESSMENT PERFORMED AND DOCUMENTED(See intervention speadsheet for details). 89 YEAR OLD MALE, RESTING IN BED WITH EYES CLOSED, NO DISTRESS NOTED, RESPIRATIONS EVEN AND UNLABORED, CURRENTLY ON 3 LITERS OXYGEN VIA NASAL CANNULA. PATIENT ALERT WHEN CALLED BY NAME, OPENS EYES SPONTANEOUSLY AND ORIENTED X4. ABDOMINAL BINDER INTACT, WOUND VAC CLEAN DRY AND INTACT WELL, NOTED A SMALL AREA OF REDNESS ON WOUND VAC AREA. FENG CATHETER DRAINING CLEAR YELLOW URINE TO GRAVITY. PATIENT REPOSITIONED FOR COMFORT AND TO MAINTAIN SKIN INTEGRITY. PATIENT TOLERATED WELL. FALL AND SAFETY PRECAUTIONS IN PLACE, WILL CONTINUE TO MONITOR.
[2020-02-25] MEDS: Ensure Enlive Strawberry 8oz Bottle PO SCH ×2 (08:00→17:23)
[2020-02-25] MEDS ORDERED: ALPRAZolam 0.25 MG TAB PO ONE (08:45)
--- NOTE | 2020-02-25 09:30 | NUR ---
SURGEON AT BEDSIDE DR HEATON UPDATED ON PATIENT'S STATUS, MD VERBALIZED UNDERSTANDING AND STATED PATIENT OK TO BE DOWNGRADED TO "[facility] ONLY" PER SURGICAL STANDPOINT. REGARDING ORAL MEDICATION MD STATED STRICT NPO. SYEDA CHARGE NURSE AWARE - WILL AWAIT HOSPITALIST TO ROUND.
[2020-02-25] MEDS ORDERED: POTASSIUM PHOSPHATE 22 MEQ in SODIUM CHL 0.9% 100 ML IV ONE (11:00)
--- NOTE | 2020-02-25 11:34 | NUR ---
HOSPITALIST AT BEDSIDE DR Francois TONY UPDATED ON PATIENT'S STATUS AND DR HEATON'S RECOMMENDATIONS FOR DOWNGRADE TO JAY[facility] ONLY AND STRICT NPO. MD VERBALIZED UNDERSTANDING AND AGREED WITH JAYRO DOWNGRADE ONLY. DR TONY ALSO REQUESTING I.S. TO BE GIVEN TO PATIENT AND NO PHYSICAL THERAPY AT THIS TIME WILL CONSIDER AFTER RE-EVALUATION TOMORROW. MD AWARE THAT AMIODARONE PO WILL BE GIVEN WITH A SMALL SIP OF WATER ORDERED BY MD. MD VERBALIZED UNDERSTANDING, NO VERBAL ORDERS GIVEN.
--- NOTE | 2020-02-25 12:15 | NUR ---
WOUND CARE NOTE: IN TO SEE PATIENT AT THIS TIME FOR SKIN INTEGRITY. PATIENT HAS CURRENT DOT SCORE OF 15. PATIENT ABLE TO SELF TURN/REPOSITION SELF. HE HAS TWO RESOLVING SKIN TEAR TO THE UPPER RIGHT/LEFT SACRUM. WOUNDS ARE INTACT, NO OPEN/DRAINING AREAS NOTED. OPTIFOAM GENTLE SACRAL DRESSING APPLIED PREVENTATIVE. PATIENT CONTINUES TO HAVE A WOUND VAC DRESSING TO MIDLINE ABDOMEN. VAC DRESSING IS INTACT, GOOD SUCTION, NO LEAKS DETECTED. VAC SET TO 125 MM/HG CONTINUOUS. NO ORDER TO CHANGE DRESSING FROM SURGEON, DR. HEATON AT THIS TIME. WILL AWAIT ORDERS FOR THIS. RECOMMEND: CONTINUATION WITH ALL WOUND CARE ORDERS, PREVIOUSLY PRESCRIBED BY MD. WOUND CARE TEAM WILL CONTINUE TO MONITOR. Addendum: 02/25/20 at 1519 by Kandi Sparks RN Amended: Links added.
[2020-02-25] MEDS: AMIODARONE HCL 200 MG TAB PO SCH (12:39)
[2020-02-25] MEDS: SODIUM CHLOR 0.9% PF (SALINE LOCK) 10ML VIAL/SYR IV SCH ×2 (12:39→21:52)
[2020-02-25] MEDS: PANTOPRAZOLE 40 MG/10 ML VIAL INJ IV SCH ×2 (12:39→21:52)
[2020-02-25] MEDS: ENOXAPARIN SOD 40 MG/0.4 ML SYRINGE SC SCH (12:39)
[2020-02-25] MEDS: MEROPENEM 500MG IVPB 50 ML IV SCH ×2 (12:41→21:52)
--- NOTE | 2020-02-25 19:10 | NUR ---
Report received from RAZA Sanchez. Patient JAYRO status. Will continue with POC; and, will continue to monitor VS & clinical status.
[2020-02-25] MEDS ORDERED: TPN PER PHARMACY IV NR ×8 (20:00)
--- NOTE | 2020-02-25 20:05 | NUR ---
TPN bag changed to new bag.
--- NOTE | 2020-02-25 20:40 | NUR ---
RAZA Flores return call to conventional mortgage underwriter. Report given to RAZA Flores.+
--- NOTE | 2020-02-25 21:00 | NUR ---
Patient Kristen is called and notified of transfer to JAYRO room 266. Patient transferred to [facility] in stable condition via bed[facility]
--- NOTE | 2020-02-25 21:08 | NUR ---
RECEIVED PATIENT FROM ICU DOWNGRADED TO JAYRO. PATIENT CONNECTED TO BEDSIDE MONITOR AND VITAL SIGNS TAKEN. PATIENT IS AWAKE, ALERT AND ORIENTED X4. NO SOB, DISTRESS OR PAIN NOTED. ON ROOM AIR. SP ABDOMINAL SURGERY WITH MIDLINE INCISION, BINDER AND WOUND VAC IN PLACE AND INTACT. PHYSICAL ASSESSMENT COMPLETED, SEE INTERVENTIONS. INSTRUCTED ON POC AND TO CALL FOR ASSIST NEEDED. BED IS IN THE LOWEST POSITION WITH SIDE RAILS UP X2, CALL LIGHT IS WITHIN REACH.
[2020-02-25] MEDS: LATANOPROST 0.005 % OPTH(EYE) SOL 2.5ML EACHEYE SCH (21:52)
[2020-02-26] VITALS (7 sets, daily range): BP systolic 114–153; BP diastolic 52–66
[2020-02-26] MEDS: ACCU-CHEK COMFORT CURVE STRIP VI SCH ×5 (00:13→22:56)
--- NOTE | 2020-02-26 04:20 | NUR ---
MORNING HYGIENE CARE PARTIAL BED BATH PERFORMED USING CHG WIPES. CHERYL CARE DONE. FENG CARE DONE. SOILED PAD CHANGED FROM UNDER PATIENT. PATIENT REPOSITIONED FOR COMFORT. TOLERATED IT WELL.
[2020-02-26 05:04] LABS: Basophils # (auto) 0.1 10 ^3/uL (0-0.2); Basophils % (auto) 0.9 % (0.0-2.0); Eosinophils # (auto) 0.3 10 ^3/uL (0-0.8); Eosinophils % (auto) 2.3 % (0.0-7.0); Hematocrit 27.8 % (41.0-53.0); Hemoglobin 9.2 g/dL (13.5-17.5); Lymphocytes # (auto) 0.4 10 ^3/uL (0.4-5.4); Lymphocytes % (auto) 2.8 % (10.0-50.0); Mean Corpuscular Hemoglobin 30.4 pg (28.0-32.0); Mean Corpuscular Hgb Conc. 33.1 g/dL (32.0-36.0); Mean Corpuscular Volume 91.6 fL (80.0-100.0); Monocytes # (auto) 1.2 10 ^3/uL (0-1.3); Monocytes % (auto) 9.4 % (0.0-12.0); Neutrophils # (auto) 10.9 10 ^3/uL (1.6-8.6); Neutrophils % (auto) 84.6 % (37.0-80.0); Platelet Count (auto) 522 10^3/uL (140-450); Red Blood Cells 3.03 10^6/uL (4.5-5.90); Red Cell Distribution Width 18.9 % (11.8-14.3); White Blood Cell 12.9 10^3/uL (4.4-10.8)
[2020-02-26 05:11] LABS: Albumin 1.6 g/dL (3.4-5.0); Calcium 7.6 mg/dL (8.5-10.1); Magnesium 2.4 mg/dL (1.6-2.6); Potassium 3.9 mmol/L (3.5-5.1)
[2020-02-26 05:13] LABS: INR 1.03 (0.9-1.15); Partial Thromboplastin Time 24.6 sec (23.0-31.2)
[2020-02-26 05:15] LABS: BUN/Creatinine Ratio 29.3; Bilirubin, Total 0.4 mg/dL (0.2-1.0); Phosphorus 2.1 mg/dL (2.5-4.90); Total Protein 5.3 g/dL (6.4-8.2)
[2020-02-26] MEDS: InsuLIN REG 1unit/0.01ml Soln (100units/ml) SC SCH ×5 (05:43→22:56)
[2020-02-26] MEDS: ALBUTEROL SULF 2.5 MG/0.5ML(0.5%) NEB SOLN NEB SCH ×3 (06:29→18:17)
[2020-02-26] MEDS: IPRATROPIUM BROM 0.5 MG/2.5ML INH SOL NEB SCH ×3 (06:29→18:17)
--- NOTE | 2020-02-26 07:13 | NUR ---
END OF SHIFT REPORT GIVEN AND CARE ENDORSED TO MARCIA PERSON.
--- NOTE | 2020-02-26 07:15 | NUR ---
REPORT OBTAINED PATIENT RESTING COMFORTABLY WITH HOB GREATER THAN 30 DEGREES. VSS. BED IN LOWEST POSITION, SIDE RAILS X3 IN PLACE. CALL LIGHT AT REACH. PLAN OF CARE REVIEWED.
[2020-02-26] MEDS: Ensure Enlive Strawberry 8oz Bottle PO SCH (08:03)
[2020-02-26] MEDS: PANTOPRAZOLE 40 MG/10 ML VIAL INJ IV SCH ×2 (08:12→19:57)
[2020-02-26] MEDS: ENOXAPARIN SOD 40 MG/0.4 ML SYRINGE SC SCH (08:12)
[2020-02-26] MEDS: SODIUM CHLOR 0.9% PF (SALINE LOCK) 10ML VIAL/SYR IV SCH ×2 (08:12→19:57)
[2020-02-26] MEDS: MEROPENEM 500MG IVPB 50 ML IV SCH (08:12)
--- NOTE | 2020-02-26 10:00 | NUR ---
WOUND VAC PATIENT CONTINUES TO HAVE A WOUND VAC DRESSING TO MIDLINE SURGICAL INCISION. DRESSING INTACT, GOOD SUCTION, NO LEAKS ALARMING. WOUND VAC PROVIDING CONTINUOUS SUCTION AT 125 MMHG. SLIGHT ERYTHEMA NOTED AT 3 O'CLOCK. WILL CONTINUE TO MONITOR.
--- NOTE | 2020-02-26 10:16 | NUR ---
PAGED NETWORK INTERN CALLING STATING SHE HAS RECEIVED A PHONE CALL FROM KEYON PAULINO STATING MD HAS ACCEPTED FOR TRANSFER. SEE MD NOTES RE: TRANSFER. DR. TONY PAGED AND REQUESTING DR. HEATON TO BE PAGED TO CLARIFY IF IN A SURGICAL POINT OF VIEW HE FEELS TRANSFER SHOULD CONTINUE. DR. HEATON PAGED. AWAITING CALLBACK.
--- NOTE | 2020-02-26 10:35 | NUR ---
TRANSFER UPDATE DR. HEATON STATING OK TO CONTINUE WITH TRANSFER IF OK WITH PATIENT AND . MD STATING HE SPOKE TO A PHYSICIAN THIS MORNING RE: PATIENTS CONDITION. PATIENT AND HAVE AGREED TO TRANSFER AT THIS TIME. COMMISSARY AGENT CALLED TO NOTIFY.
--- NOTE | 2020-02-26 11:46 | NUR ---
DR. TONY AT BEDSIDE MD UPDATED ON PATIENTS STATUS. PENDING BED AT THIS TIME. ALL FORMS TO BE USED FROM 02/22. SEE MD NOTES.
--- NOTE | 2020-02-26 11:48 | NUR ---
Patient acknowledgement for received from community case manager signed and faxed to Estela. Addendum: 02/26/20 at 1420 by Zoey Dior RN *Transfer back agreement
--- NOTE | 2020-02-26 11:54 | NUR ---
PO MEDICATION NURSE ON 02/25 NOTIFIED THAT AMIODARONE PO WOULD BE GIVEN WITH A SMALL SIP OF WATER AND OK WITH MD. AM DOSE TO BE GIVEN WELL.
--- NOTE | 2020-02-26 12:00 | NUR ---
WOUND CARE NOTE: PATIENT CONTINUES TO HAVE A WOUND VAC DRESSING TO MIDLINE ABDOMEN. VAC DRESSING IS INTACT, GOOD SUCTION, NO LEAKS DETECTED. VAC SET TO 125 mmHg CONTINUOUS.
--- NOTE | 2020-02-26 12:09 | NUR ---
1100 02/26/20 - Contacted by [facility] transfer center coordinator Crystal who stated Dr Johnson, General Surgeon had accepted patient, requesting authorization and she would be sending [facility] transfer back agreement for completion. Obtained authorization for facility from case packer and sealer Fouzia at [facility] [id number], per Fouzia [facility] is contracted with [facility], I am obtaining required signatures for Return Back Agreement. Pending bed assignment.
[2020-02-26] MEDS: AMIODARONE HCL 200 MG TAB PO SCH (12:33)
--- NOTE | 2020-02-26 14:42 | NUR ---
PAGED/ PHYSICAL THERAPY DR. TONY PAGED TO VERIFY IF IT IS OK TO CONTINUE WITH PHYSICAL THERAPY PREVIOUS NOTE STATING TO HOLD UNTIL FURTHER EVALUATION IN A.M. AWAITING CALLBACK.
--- NOTE | 2020-02-26 14:44 | NUR ---
Nutrition Followup Notes Wt: 83.7 kg Pt was sleeping when rounded this morning. Pt is currently NPO with TPN nutrition support @ 63 ml/hr, providing 1670 kcals, 70g protein and 1390 NPCs. PN support meets 91-93% of est energy needs and 81-88% of est protein needs. Est Energy needs BW 79 [id number] kcals (23-25 kcal/kgBW), Est Protein needs: 79-86 gms/day (1.0-1.1 gm/kgBW). Will continue to monitor and reassess prn. LABS: BUN 44 H CA 7.6 L ALB 1.6 L GI: Pt had 1 BM on 02/16 gastric drainage 30 ml today per RN note BS: 14 mod risk. Refer to wound assessment report for full details. PES: Altered nutrition related lab values r/t current chronic medical condition aeb mod hypoalb Comments Will continue to monitor NPO status, PN tolerance, skin status, pertinent labs and weight trends. Will f/u in 2-3 days. 1) Advance diet as medically feasible. 2) Consider prostat 1 packet bid along with ensure clear 1 carton bid. 3) Continue current plan of care
--- NOTE | 2020-02-26 15:25 | NUR ---
PATIENT USING I.S. INDEPENDENTLY WITHOUT REMINDER NEEDED.
--- NOTE | 2020-02-26 16:00 | NUR ---
CALLED BACK DR. TONY CALLED BACK. PER , OK FOR PATIENT TO CONTINUE WITH PHYSICAL THERAPY.
--- NOTE | 2020-02-26 16:15 | NUR ---
PHYSICAL THERAPY AT BEDSIDE. Addendum: 02/26/20 at 1701 by Zoey Dior RN PATIENT ASSISTED TO CHAIR WITH CALL LIGHT AT REACH. VSS.
--- NOTE | 2020-02-26 18:15 | NUR ---
Activity Moderate assistance needed for transfer from chair to bed. Patient tolerated well. Vss. Some sob noted with activity. Patient remains on room air with pox 95-97%.
--- NOTE | 2020-02-26 18:17 | NUR ---
No wound vac drainage noted. Wound vac intact, good suction, no leaks noted.
[2020-02-26] MEDS: LATANOPROST 0.005 % OPTH(EYE) SOL 2.5ML EACHEYE SCH (19:57)
[2020-02-26] MEDS ORDERED: [UNRECOGNIZED DRUG - OTHER] IV NR ×8 (20:00)
[2020-02-26] MEDS ORDERED: POTASSIUM ACETATE IV NR ×8 (20:00)
[2020-02-26] MEDS ORDERED: POTASSIUM PHOSPHATE IV NR ×8 (20:00)
[2020-02-26] MEDS ORDERED: FAT EMULSION IV NR ×8 (20:00)
--- NOTE | 2020-02-26 20:00 | NUR ---
SHIFT OPENING NOTE PATIENT IS AWAKE, ALERT AND ORIENTED X4. NO SOB, DISTRESS OR PAIN NOTED. ON ROOM AIR. SP ABDOMINAL SURGERY WITH MIDLINE INCISION, BINDER AND WOUND VAC IN PLACE AND INTACT. PHYSICAL ASSESSMENT COMPLETED, SEE INTERVENTIONS. INSTRUCTED ON POC AND TO CALL FOR ASSIST NEEDED. BED IS IN THE LOWEST POSITION WITH SIDE RAILS UP X2, CALL LIGHT IS WITHIN REACH. AWAITING BED AT [place] FOR TRANSFER.
--- NOTE | 2020-02-26 21:25 | NUR ---
[facility] SPOKE WITH DINH AT THE TRANSFER CENTER. PATIENT WILL BE GOING TO [facility] [address], [place], [address], BED 15. REPORT NUMBER TO CALL [phone] EXT [phone]
--- NOTE | 2020-02-26 21:30 | NUR ---
TRANSPORTATION SET UP WITH [facility] ETA 1 HOUR
--- NOTE | 2020-02-26 21:40 | NUR ---
NACHO MRSA SENT TO LAB VIA IAM
--- NOTE | 2020-02-26 21:45 | NUR ---
DC PICS OF WOUNDS TAKEN BILAT BUTTOCKS AND ABDOMEN WOUND FORMS FILLED OUT AND PLACED IN WOUND BOX IN [facility].
[2020-02-26] MEDS ORDERED: MEROPENEM 1GM IVPB 100 ML IV SCH (22:00)
--- NOTE | 2020-02-26 22:40 | NUR ---
REPORT GIVEN TO ARLETTE PERSON AT [place] ALL QUESTIONS ANSWERED.
[2020-02-27] VITALS: BP 123/57
[2020-02-27 04:00] VITALS: BP 131/57
--- NOTE | 2020-02-27 05:30 | NUR ---
CALLED [facility] 6 TIMES THROUGHOUT SHIFT FOR ETA LAST ONE IS 0610.
--- NOTE | 2020-02-27 06:25 | NUR ---
[facility] AT BEDSIDE TRANSFERRED [facility]NTO [facility] AND CONNECTED TO THEIR MONITORS. REPORT AND PACKET GIVEN TO [facility] PERSONNEL. ALL BELONGINGS TAKEN WITH PATIENT. TRANSFERRED TO [facility]. CALLED [place] AND INFORMED THEM OF PATIENTS DEPARTURE FROM [facility].
== END 2020-02-27 06:25 | disposition short-term general hospital (02) | DRG 329 ==
LOC: EDBD 23:43 → ER 23:47 → TELE 23:48 → TELE-WESTW 02-05 17:01 → ICU WEST 02-08 13:58 → DOU IN ICU 02-15 14:57 → TELE-WESTW 02-20 15:10 → ICU WEST 02-22 19:40 → DOU IN ICU 02-25 21:00
PROVIDERS: ADMIT Nurse Practitioner; ATTEND Internal Medicine
PROC: 30233N1 Transfusion of Nonautologous Red Blood Cells into Peripheral Vein, Percutaneous Approach (ICD-10-PCS; 2020-02-05)
PROC: 0DJD8ZZ Inspection of Lower Intestinal Tract, Via Natural or Artificial Opening Endoscopic (ICD-10-PCS; principal; 2020-02-06 11:47)
PROC: 0DJD8ZZ Inspection of Lower Intestinal Tract, Via Natural or Artificial Opening Endoscopic (ICD-10-PCS; 2020-02-08)
PROC: 02HV33Z Insertion of Infusion Device into Superior Vena Cava, Percutaneous Approach (ICD-10-PCS; 2020-02-09)
PROC: 3E0436Z Introduction of Nutritional Substance into Central Vein, Percutaneous Approach (ICD-10-PCS; 2020-02-09)
PROC: 0DJD4ZZ Inspection of Lower Intestinal Tract, Percutaneous Endoscopic Approach (ICD-10-PCS; 2020-02-10)
PROC: 0DTF0ZZ Resection of Right Large Intestine, Open Approach (ICD-10-PCS; 2020-02-10)
PROC: 0BH17EZ Insertion of Endotracheal Airway into Trachea, Via Natural or Artificial Opening (ICD-10-PCS; 2020-02-10)
PROC: 5A1945Z Respiratory Ventilation, 24-96 Consecutive Hours (ICD-10-PCS; 2020-02-10)
PROC: 06HY33Z Insertion of Infusion Device into Lower Vein, Percutaneous Approach (ICD-10-PCS; 2020-02-22)
DX: K63.5 Polyp of colon (principal); K57.31 Diverticulosis of large intestine without perforation or abscess with bleeding; J96.01 Acute respiratory failure with hypoxia; D62 Acute posthemorrhagic anemia; E87.2 Acidosis; J90 Pleural effusion, not elsewhere classified; J98.11 Atelectasis; I82.A11 Acute embolism and thrombosis of right axillary vein; N17.9 Acute kidney failure, unspecified; K91.30 Postprocedural intestinal obstruction, unspecified as to partial versus complete; Z20.828 Contact with and (suspected) exposure to other viral communicable diseases; I95.9 Hypotension, unspecified; E86.0 Dehydration; I10 Essential (primary) hypertension; Z74.01 Bed confinement status; K44.9 Diaphragmatic hernia without obstruction or gangrene; K52.9 Noninfective gastroenteritis and colitis, unspecified; E87.6 Hypokalemia; H40.9 Unspecified glaucoma; I48.0 Paroxysmal atrial fibrillation; E78.5 Hyperlipidemia, unspecified; K80.20 Calculus of gallbladder without cholecystitis without obstruction; Z79.899 Other long term (current) drug therapy; Z80.3 Family history of malignant neoplasm of breast; M19.90 Unspecified osteoarthritis, unspecified site; Z53.31 Laparoscopic surgical procedure converted to open procedure; Y83.8 Other surgical procedures as the cause of abnormal reaction of the patient, or of later complication, without mention of misadventure at the time of the procedure
CPT/HCPCS: 36415; 36569; 36600; 45378; 71045; 71250; 71275; 74018; 74021; 74176; 80048; 80053; 81001; 82040; 82270; 82805; 82962; 83605; 83735; 83880; 84100; 84478; 84484; 85007; 85014; 85018; 85025; 85027; 85610; 85730; 86850; 86900; 86901; 86920; 87040; 87070; 87081; 87205; 87426; 93005; 93306; 93971; 94003; 94640; 97110; 97116; 97163; 97530; C9113; G0378; J0330; J0610; J0696; J1815; J2001; J2185; J2250; J2405; J2543; J2704; J3480; J7060

== ENCOUNTER 2020-03-22 13:27 | Inpatient (IN) | payer OTHER ==
[~2020-03-22] VITALS: Ht 175.3 cm; Wt 83.2 kg
[~2020-03-22 13:27] MED LIST changes: +ACET-1156 PO; +AMIO200T4 PO; +HYDR-4833 PO
[2020-03-22] MEDS ORDERED: AZITHROMYCIN 500MG/ 250ML 250 ML IV ONE (15:00)
[2020-03-22] MEDS ORDERED: PANTOPRAZOLE 40 MG/10 ML VIAL INJ IV ONE (15:00)
[2020-03-22] MEDS ORDERED: SODIUM CHLORIDE 0.9% 1,000 ML IVB ONE (15:00)
[2020-03-22] MEDS ORDERED: LABETALOL HCL 5 MG/ML 4ML SYRINGE IV PRN (16:45)
[2020-03-22] MEDS ORDERED: ACETAMINOPHEN 500 MG TAB PO PRN (16:45)
[2020-03-22] MEDS ORDERED: NITROGLYCERIN 0.4 MG SL TAB SL PRN (16:45)
[2020-03-22] MEDS ORDERED: SODIUM CHLORIDE 0.9% 1,000 ML IV SCH (16:45)
[2020-03-22] MEDS ORDERED: VANCOMYCIN PER PHARMACY 0 MG IV SCH (16:45)
[2020-03-22] MEDS ORDERED: MORPHINE SULF INJ 2 MG/ML SYRINGE 1ML IV PRN ×2 (16:45)
[2020-03-22] MEDS ORDERED: SODIUM CHLORIDE 0.9% 1,000 ML IV ONE (16:45)
[2020-03-22 17:54] LABS: Basophils # (auto) 0 10 ^3/uL (0-0.2); Basophils % (auto) 0.3 % (0.0-2.0); Eosinophils # (auto) 0.1 10 ^3/uL (0-0.8); Eosinophils % (auto) 0.9 % (0.0-7.0); Hematocrit 27.2 % (41.0-53.0); Hemoglobin 8.8 g/dL (13.5-17.5); Lymphocytes # (auto) 0.9 10 ^3/uL (0.4-5.4); Lymphocytes % (auto) 14.3 % (10.0-50.0); Mean Corpuscular Hgb Conc. 32.2 g/dL (32.0-36.0); Mean Corpuscular Volume 90.1 fL (80.0-100.0); Monocytes # (auto) 0.7 10 ^3/uL (0-1.3); Monocytes % (auto) 10.7 % (0.0-12.0); Neutrophils # (auto) 4.6 10 ^3/uL (1.6-8.6); Neutrophils % (auto) 73.8 % (37.0-80.0); Platelet Count (auto) 376 10^3/uL (140-450); Red Blood Cells 3.02 10^6/uL (4.5-5.90); Red Cell Distribution Width 18.2 % (11.8-14.3); White Blood Cell 6.2 10^3/uL (4.4-10.8)
[2020-03-22] MEDS: LATANOPROST 0.005 % OPTH(EYE) SOL 2.5ML EACHEYE SCH (18:00)
[2020-03-22 18:09] LABS: INR 1.08 (0.9-1.15)
[2020-03-22 18:11] LABS: Albumin 2.4 g/dL (3.4-5.0); BUN/Creatinine Ratio 24.2; Calcium 7.9 mg/dL (8.5-10.1); Potassium 3.3 mmol/L (3.5-5.1)
[2020-03-22 18:12] LABS: Magnesium 1.6 mg/dL (1.6-2.6)
[2020-03-22 18:13] LABS: Lactic Acid w/Reflex 2.3 mmol/L (0.4-2.0)
[2020-03-22 18:14] LABS: Bilirubin, Total 0.2 mg/dL (0.2-1.0); Total Protein 6.6 g/dL (6.4-8.2)
[2020-03-22 18:26] LABS: CRP High Sensitivity 6.65 mg/dL (< 0.3)
[2020-03-22 20:03] VITALS: BP 98/52
[2020-03-22] MEDS ORDERED: VANCOMYCIN 1GM/250ML 250 ML IV ONE (21:00)
[2020-03-22 21:53] LABS: Hematocrit 23.6 % (41.0-53.0); Hemoglobin 7.7 g/dL (13.5-17.5)
[2020-03-22] MEDS: PIPERACILLIN-TAZOB 3.375GM 100 ML IV SCH (22:14)
[2020-03-22] MEDS: PANTOPRAZOLE 40 MG/10 ML VIAL INJ IV SCH (22:51)
--- NOTE | 2020-03-22 23:13 | NUR ---
Respiratory note: RESP MEDS HELD AT THIS TIME, UNABLE TO OBTAIN FROM PHARMACY. PT SLEEPING AT THIS TIME WITH NO DISTRESS NOTED. PULSE OX 100% ON 2.5LNC. TITRATED FIO2 TO 2LNC AT THIS TIME, HR 86, RR20
[2020-03-22] MEDS: BUDESONIDE (INHALATION) 180 MCG IH IN SCH (23:25)
[2020-03-22] MEDS: ALBUTEROL SULF HFA 90MCG INH 200DOSE IN SCH (23:25)
[2020-03-23 03:04] LABS: Hematocrit 21.9 % (41.0-53.0); Hemoglobin 7.2 g/dL (13.5-17.5)
[2020-03-23 03:25] LABS: Magnesium 1.5 mg/dL (1.6-2.6)
[2020-03-23] MEDS: ALBUTEROL SULF HFA 90MCG INH 200DOSE IN SCH ×3 (06:00→21:40)
--- NOTE | 2020-03-23 06:00 | NUR ---
Respiratory note: PT CURRENTLY ON NC2L. NO RESP DISTRESS NOTED. MDI NOT AVAILABLE. SPO2 100%, HR 85, RR 18. WILL ADMINISTER TX AT NEXT SCHEDULED TIME.
[2020-03-23] MEDS: PIPERACILLIN-TAZOB 3.375GM 100 ML IV SCH ×4 (06:19→18:04)
[2020-03-23 08:36] LABS: Basophils # (auto) 0 10 ^3/uL (0-0.2); Basophils % (auto) 0.5 % (0.0-2.0); Eosinophils # (auto) 0.1 10 ^3/uL (0-0.8); Eosinophils % (auto) 2.4 % (0.0-7.0); Hematocrit 22.2 % (41.0-53.0); Hemoglobin 7.4 g/dL (13.5-17.5); Lymphocytes # (auto) 0.5 10 ^3/uL (0.4-5.4); Mean Corpuscular Hemoglobin 29.7 pg (28.0-32.0); Mean Corpuscular Hgb Conc. 33.3 g/dL (32.0-36.0); Mean Corpuscular Volume 89.2 fL (80.0-100.0); Monocytes # (auto) 0.8 10 ^3/uL (0-1.3); Neutrophils # (auto) 3.7 10 ^3/uL (1.6-8.6); Neutrophils % (auto) 72.1 % (37.0-80.0); Platelet Count (auto) 312 10^3/uL (140-450); Red Blood Cells 2.49 10^6/uL (4.5-5.90); Red Cell Distribution Width 17.6 % (11.8-14.3); White Blood Cell 5.1 10^3/uL (4.4-10.8)
[2020-03-23 08:42] LABS: BUN/Creatinine Ratio 20.9; Calcium 6.9 mg/dL (8.5-10.1); Magnesium 1.4 mg/dL (1.6-2.6)
[2020-03-23 08:45] LABS: Bilirubin, Total 0.3 mg/dL (0.2-1.0); Total Protein 5.5 g/dL (6.4-8.2)
[2020-03-23 08:59] LABS: Urine Amorphous Crystal FEW /hpf (None Seen); Urine Bacteria NONE SEEN /hpf (None Seen); Urine Blood Negative /uL (Negative); Urine Budding Yeast MANY /hpf (None Seen); Urine Specific Gravity 1.017 (1.001-1.035); Urine WBC 2 /hpf (0 - 3)
[2020-03-23] MEDS: METOPROLOL SUCCINATE XL 50 MG TAB PO SCH (09:05)
[2020-03-23] MEDS: AMIODARONE HCL 200 MG TAB PO SCH (09:05)
[2020-03-23] MEDS: PANTOPRAZOLE 40 MG/10 ML VIAL INJ IV SCH ×2 (09:06→23:30)
[2020-03-23] MEDS: BUDESONIDE (INHALATION) 180 MCG IH IN SCH ×2 (09:54→21:40)
[2020-03-23] MEDS ORDERED: VANCOMYCIN PER PHARMACY 0 MG IV SCH (14:00)
[2020-03-23 14:20] LABS: Hemoglobin 7.2 g/dL (13.5-17.5)
[2020-03-23 14:22] LABS: Hematocrit 22.4 % (41.0-53.0)
[2020-03-23] MEDS: VANCOMYCIN 1GM/250ML 250 ML IV SCH (14:27)
[2020-03-23] MEDS ORDERED: POTASSIUM CHL 20MEQ/100ML 100 ML IV SCH (15:30)
[2020-03-23] MEDS: MAGNESIUM SULFATE 1GM/100ML 100 ML IV SCH ×2 (16:00→20:45)
[2020-03-23] MEDS ORDERED: POTASSIUM CHLORIDE 40 MEQ, LIDOCAINE 1% (LOCAL ANESTH.) 4 ML in SODIUM CHL 0.9% 250 ML IV ONE (16:00)
[2020-03-23] MEDS: SUCRALFATE 1 GM/10 ML ORAL SUSP PO SCH ×2 (17:00→23:30)
[2020-03-23] MEDS: LATANOPROST 0.005 % OPTH(EYE) SOL 2.5ML EACHEYE SCH (18:00)
[2020-03-23] MEDS ORDERED: LATANOPROST 0.005 % OPTH(EYE) SOL 2.5ML EACHEYE SCH (22:00)
[2020-03-23 22:08] LABS: Hematocrit 21.9 % (41.0-53.0); Hemoglobin 7.2 g/dL (13.5-17.5)
[2020-03-24] VITALS (7 sets, daily range): BP systolic 102–112; BP diastolic 54–64
[2020-03-24] MEDS: MAGNESIUM SULFATE 1GM/100ML 100 ML IV SCH ×2 (00:05)
[2020-03-24] MEDS: PIPERACILLIN-TAZOB 3.375GM 100 ML IV SCH ×4 (00:45→17:55)
[2020-03-24 02:43] LABS: Hematocrit 23.8 % (41.0-53.0); Hemoglobin 7.6 g/dL (13.5-17.5)
[2020-03-24] MEDS: VANCOMYCIN 1GM/250ML 250 ML IV SCH ×2 (03:00→14:24)
[2020-03-24] MEDS: ALBUTEROL SULF HFA 90MCG INH 200DOSE IN SCH ×3 (06:28→22:38)
[2020-03-24] MEDS: BUDESONIDE (INHALATION) 180 MCG IH IN SCH ×2 (07:10→22:38)
[2020-03-24] MEDS: METOPROLOL SUCCINATE XL 50 MG TAB PO SCH (08:31)
[2020-03-24] MEDS: PANTOPRAZOLE 40 MG/10 ML VIAL INJ IV SCH ×2 (08:31→23:16)
[2020-03-24] MEDS: SUCRALFATE 1 GM/10 ML ORAL SUSP PO SCH ×4 (08:31→23:15)
[2020-03-24] MEDS: AMIODARONE HCL 200 MG TAB PO SCH (08:31)
[2020-03-24 09:04] LABS: Basophils # (auto) 0 10 ^3/uL (0-0.2); Eosinophils # (auto) 0.3 10 ^3/uL (0-0.8); Lymphocytes # (auto) 0.6 10 ^3/uL (0.4-5.4); Monocytes # (auto) 0.8 10 ^3/uL (0-1.3)
[2020-03-24 09:06] LABS: Basophils % (auto) 0.5 % (0.0-2.0); Eosinophils % (auto) 5.2 % (0.0-7.0); Hematocrit 21.2 % (41.0-53.0); Lymphocytes % (auto) 12.7 % (10.0-50.0); Mean Corpuscular Hemoglobin 29.3 pg (28.0-32.0); Mean Corpuscular Hgb Conc. 32.6 g/dL (32.0-36.0); Mean Corpuscular Volume 89.9 fL (80.0-100.0); Neutrophils # (auto) 3.4 10 ^3/uL (1.6-8.6); Neutrophils % (auto) 66.6 % (37.0-80.0); Nucleated Red Blood Cells % 0.1 %; Platelet Count (auto) 285 10^3/uL (140-450); Red Blood Cells 2.36 10^6/uL (4.5-5.90); Red Cell Distribution Width 18.1 % (11.8-14.3); White Blood Cell 5.1 10^3/uL (4.4-10.8)
[2020-03-24 09:26] LABS: Albumin 1.8 g/dL (3.4-5.0); BUN/Creatinine Ratio 15.1; Calcium 7.3 mg/dL (8.5-10.1); Magnesium 2.3 mg/dL (1.6-2.6); Phosphorus 2.4 mg/dL (2.5-4.90); Potassium 3.1 mmol/L (3.5-5.1)
[2020-03-24 09:41] LABS: Hemoglobin 6.9 g/dL (13.5-17.5)
[2020-03-24 12:16] LABS: Hematocrit 21.9 % (41.0-53.0)
[2020-03-24 12:19] LABS: Hemoglobin 6.9 g/dL (13.5-17.5)
[2020-03-24] MEDS: LATANOPROST 0.005 % OPTH(EYE) SOL 2.5ML EACHEYE SCH (18:42)
[2020-03-24 22:08] LABS: Basophils # (auto) 0 10 ^3/uL (0-0.2); Basophils % (auto) 0.4 % (0.0-2.0); Eosinophils # (auto) 0.3 10 ^3/uL (0-0.8); Eosinophils % (auto) 5.9 % (0.0-7.0); Hematocrit 26.3 % (41.0-53.0); Hemoglobin 8.6 g/dL (13.5-17.5); Lymphocytes # (auto) 0.6 10 ^3/uL (0.4-5.4); Lymphocytes % (auto) 10.3 % (10.0-50.0); Mean Corpuscular Hemoglobin 29.6 pg (28.0-32.0); Mean Corpuscular Hgb Conc. 32.8 g/dL (32.0-36.0); Mean Corpuscular Volume 90.2 fL (80.0-100.0); Monocytes # (auto) 0.8 10 ^3/uL (0-1.3); Monocytes % (auto) 15.3 % (0.0-12.0); Neutrophils # (auto) 3.7 10 ^3/uL (1.6-8.6); Neutrophils % (auto) 68.1 % (37.0-80.0); Platelet Count (auto) 301 10^3/uL (140-450); Red Blood Cells 2.92 10^6/uL (4.5-5.90); Red Cell Distribution Width 17.2 % (11.8-14.3); White Blood Cell 5.5 10^3/uL (4.4-10.8)
[2020-03-25] MEDS: PIPERACILLIN-TAZOB 3.375GM 100 ML IV SCH ×4 (01:05→22:15)
[2020-03-25] MEDS: VANCOMYCIN 1GM/250ML 250 ML IV SCH ×2 (03:07→19:15)
[2020-03-25] MEDS: BUDESONIDE (INHALATION) 180 MCG IH IN SCH ×2 (07:10→22:17)
[2020-03-25] MEDS: ALBUTEROL SULF HFA 90MCG INH 200DOSE IN SCH ×3 (07:10→22:17)
[2020-03-25] MEDS ORDERED: POTASSIUM EFFERVESENT TAB 25 MEQ PO ONE ×2 (07:30→10:00)
[2020-03-25 07:53] LABS: Basophils # (auto) 0 10 ^3/uL (0-0.2); Eosinophils # (auto) 0.4 10 ^3/uL (0-0.8); Lymphocytes # (auto) 0.5 10 ^3/uL (0.4-5.4)
[2020-03-25 07:54] LABS: Basophils % (auto) 0.3 % (0.0-2.0); Hematocrit 24.9 % (41.0-53.0); Hemoglobin 7.9 g/dL (13.5-17.5); Lymphocytes % (auto) 9.7 % (10.0-50.0); Mean Corpuscular Hemoglobin 28.7 pg (28.0-32.0); Mean Corpuscular Volume 89.8 fL (80.0-100.0); Monocytes # (auto) 0.9 10 ^3/uL (0-1.3); Monocytes % (auto) 16.7 % (0.0-12.0); Neutrophils # (auto) 3.4 10 ^3/uL (1.6-8.6); Neutrophils % (auto) 66.3 % (37.0-80.0); Platelet Count (auto) 293 10^3/uL (140-450); Red Blood Cells 2.77 10^6/uL (4.5-5.90); Red Cell Distribution Width 17.6 % (11.8-14.3); White Blood Cell 5.1 10^3/uL (4.4-10.8)
[2020-03-25 08:09] LABS: BUN/Creatinine Ratio 11.2; Calcium 7.2 mg/dL (8.5-10.1); Magnesium 2.1 mg/dL (1.6-2.6)
[2020-03-25] MEDS: METOPROLOL SUCCINATE XL 50 MG TAB PO SCH (08:16)
[2020-03-25] MEDS: PANTOPRAZOLE 40 MG/10 ML VIAL INJ IV SCH ×2 (08:16→22:15)
[2020-03-25] MEDS: AMIODARONE HCL 200 MG TAB PO SCH (08:16)
[2020-03-25] MEDS: SUCRALFATE 1 GM/10 ML ORAL SUSP PO SCH ×4 (08:16→22:15)
--- NOTE | 2020-03-25 11:57 | NUR ---
Midline Placement: Patient educated on need for midline placement. All risks and benefits explained and all questions and concerns addresses prior to procedure. 18g/10 cm midline inserted via LEFT BASILIC vein using Ultrasound. Sterile technique utilized. Blood return obtained from THE SINGLE lumen and flushed easily with NS using proper technique. Midline secured with saline lock; biodisc and occlusive dressing applied. Primary RN CHELSEY notified. Midline lot # [id number]
[2020-03-25] MEDS: guaiFENesin-DM 100/10mg/5ml SYR PO PRN (12:30)
--- NOTE | 2020-03-25 12:57 | NUR ---
Pt is an alert and oriented male that was previously in a [facility] rehab prior to admission. Prior to placement pt functioned independently and used no assistive devices. Pt is currently COVID positive and pending physical therapy evaluation pt may need home health if not returning to SNF. Pt is an alert and oriented male that was previously in a [facility] rehab prior to admission. Per pts significant other, Kristen, pt was discharged too early and she is requesting that he return to SNF to continue rehab. 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 Informed Kristen that placement would have to be authorized by the group pending a physical therapy evaluation. If not authorized pt would have home health for physical therapy and discharge to home. Discussed private pay caregivers should pt have to go home. Kristne verbalized understanding and agreeance with the above. Addendum: 03/26/20 at 1258 by DEYANIRA BEACH Amended: Links added.
[2020-03-25] MEDS: LATANOPROST 0.005 % OPTH(EYE) SOL 2.5ML EACHEYE SCH (19:15)
[2020-03-25] MEDS: VANCOMYCIN HCL 125MG/5ML ORAL SOL PO SCH ×2 (19:15→22:15)
[2020-03-26 01:34] VITALS: BP 91/55
[2020-03-26] MEDS: PIPERACILLIN-TAZOB 3.375GM 100 ML IV SCH ×3 (05:42→22:53)
[2020-03-26] MEDS: VANCOMYCIN HCL 125MG/5ML ORAL SOL PO SCH ×4 (05:43→22:53)
[2020-03-26 07:22] LABS: Basophils # (auto) 0 10 ^3/uL (0-0.2); Basophils % (auto) 0.2 % (0.0-2.0); Eosinophils # (auto) 0.3 10 ^3/uL (0-0.8); Lymphocytes # (auto) 0.5 10 ^3/uL (0.4-5.4); Monocytes % (auto) 17.2 % (0.0-12.0); Neutrophils # (auto) 3.9 10 ^3/uL (1.6-8.6); Platelet Count (auto) 301 10^3/uL (140-450)
[2020-03-26] MEDS: ALBUTEROL SULF HFA 90MCG INH 200DOSE IN SCH ×3 (07:22→19:20)
[2020-03-26] MEDS: BUDESONIDE (INHALATION) 180 MCG IH IN SCH ×2 (07:22→19:20)
[2020-03-26 07:24] LABS: Eosinophils % (auto) 5.2 % (0.0-7.0); Hematocrit 23.1 % (41.0-53.0); Hemoglobin 7.9 g/dL (13.5-17.5); Lymphocytes % (auto) 9.4 % (10.0-50.0); Mean Corpuscular Hemoglobin 30.2 pg (28.0-32.0); Mean Corpuscular Hgb Conc. 34.1 g/dL (32.0-36.0); Mean Corpuscular Volume 88.7 fL (80.0-100.0); Red Blood Cells 2.61 10^6/uL (4.5-5.90); Red Cell Distribution Width 17.8 % (11.8-14.3); White Blood Cell 5.7 10^3/uL (4.4-10.8)
[2020-03-26 07:40] LABS: BUN/Creatinine Ratio 9.4; Calcium 7.3 mg/dL (8.5-10.1); Potassium 3.3 mmol/L (3.5-5.1)
[2020-03-26] MEDS: VANCOMYCIN 1GM/250ML 250 ML IV SCH (08:19)
[2020-03-26] MEDS: AMIODARONE HCL 200 MG TAB PO SCH (08:19)
[2020-03-26] MEDS: SUCRALFATE 1 GM/10 ML ORAL SUSP PO SCH ×4 (08:19→22:53)
[2020-03-26] MEDS: METOPROLOL SUCCINATE XL 50 MG TAB PO SCH (08:19)
[2020-03-26] MEDS: PANTOPRAZOLE 40 MG/10 ML VIAL INJ IV SCH ×2 (08:19→22:53)
[2020-03-26] MEDS: guaiFENesin-DM 100/10mg/5ml SYR PO PRN (12:18)
[2020-03-26] MEDS: LATANOPROST 0.005 % OPTH(EYE) SOL 2.5ML EACHEYE SCH (16:50)
--- NOTE | 2020-03-26 17:30 | NUR ---
WOUND CARE NOTE: Wound care in to see patient per wound care request regarding wounds/skin integrity issue that are noted upon assessment. Patient is 89 years old male with admitting diagnosis of GI Bleed. Patient is resting in hospital bed in ER bed#10. He's awake, alert and able to verbalize needs. He's in no stated pain at this time. Patient is able to assist in turning and repositioning and his Jose score is 15. Skin/wound assessment done with the assistance of patient's nurse, RAZA Bello. Patient came in with abdominal wound with soiled dressing (brown dry packing). Patient unable to give much information regarding his abdominal wound and states that "they changed the dressing few days ago" but did not answer the question "who's they". Dr. Dumont arrived at bedside to see patient. Irrigated patient's abdominal wound with NS, patted dry with gauze. There's total of 10 marie in rows of twos with open area in between stapled incision. On previous admission, patient undergone Exploratory Laparotomy on 02/10/[address] Lal. patient unable to give information if he follow up with his surgeon. Cleansed abdominal wounds with NS,patted dry, packed wound cavity with NS moistened one inch plain packing strips and left an inch tail. Covered abdominal wound with dry sterile dressing (abd pad/Medipore tape). RAZA Bello reported that patient have episode of loose stools and developed Rt and Lt buttocks skin erosion/moisture associated skin damage. Cristine care given,applied Z Guard cream and covered wounds with Opti foam gentle dressing. Photograph of wounds are taken for reference. Repositioned patient for comfort on his back with head of bed elevated. Redistributed pressure points with pillows. Patient tolerated well. Bed in low position, call mendez on hand, all safety precautions in placed. RECOMMENDATION: Daily/PRN dressing change to abdominal wound, BID/PRN dressing change to buttocks MASD per MD order, Dietary consult for wounds, frequent turning and repositioning schedule as condition permits, redistribute pressure points with pillows, elevate heels on pillows, frequent cristine care/check, keep clean and dry, continue monitoring by wound care while patient is hospitalized. Addendum: 03/26/20 at 1844 by Gladys Cook RN Amended: Links added.
[2020-03-27 02:20] VITALS: BP 106/75
--- NOTE | 2020-03-27 02:30 | NUR ---
Telemetry admit from ER MIKETHAIS PICHARDO admitted to Telemetry COVID unit after SBAR received. Patient oriented to Katie Bennett, RN primary RN, unit, room 235 and unit policies regarding patient care and visiting hours. Patient now on continuous telemetry monitoring, tele box # 5 and telemetry reading on arrival to unit is SR 80s. Patient placed on bedside oxygen at 2L nasal cannula, weighed by bedscale and encouraged to call if they need something. Safety measures in place, bed in lowest locked position, bed rails raised x2, call light within reach, contact and respiratory precautions in place. All questions and concerns addressed, patient verbalized understanding.
[2020-03-27] MEDS: guaiFENesin-DM 100/10mg/5ml SYR PO PRN (03:00)
[2020-03-27] MEDS ORDERED: PNEUMOCOCCAL VACC POLYS 25 MCG/0.5 ML VIAL IM ONE (04:00)
[2020-03-27] MEDS: PIPERACILLIN-TAZOB 3.375GM 100 ML IV SCH ×3 (05:43→22:27)
[2020-03-27] MEDS: VANCOMYCIN HCL 125MG/5ML ORAL SOL PO SCH ×4 (05:43→22:49)
[2020-03-27] MEDS: ALBUTEROL SULF HFA 90MCG INH 200DOSE IN SCH ×3 (06:17→20:01)
[2020-03-27] MEDS: BUDESONIDE (INHALATION) 180 MCG IH IN SCH ×2 (06:17→20:01)
[2020-03-27] MEDS: SUCRALFATE 1 GM/10 ML ORAL SUSP PO SCH ×4 (06:35→22:27)
--- NOTE | 2020-03-27 08:00 | NUR ---
OPENING SHIFT NOTE ASSUMED CARE OF PATIENT AWAKE AND ALERT. NO S/S OF DISTRESS NOTED. PATIENT IS ON 2L NC WITH A NONPRODUCTIVE COUGH. PATIENT UPDATED ON POC FOR THE DAY AND ALL QUESTIONS ANSWERED. BED IS IN LOWEST, LOCKED POSITION WITH SIDE RAILS UP X2 AND CALL LIGHT WITHIN REACH. WILL CONTINUE TO MONITOR Q1H AND PRN.
[2020-03-27 08:29] LABS: Basophils # (auto) 0 10 ^3/uL (0-0.2); Eosinophils # (auto) 0.3 10 ^3/uL (0-0.8); Lymphocytes # (auto) 0.6 10 ^3/uL (0.4-5.4); Neutrophils # (auto) 3.6 10 ^3/uL (1.6-8.6); Red Cell Distribution Width 17.5 % (11.8-14.3)
[2020-03-27 08:30] LABS: Basophils % (auto) 0.4 % (0.0-2.0); Eosinophils % (auto) 6.1 % (0.0-7.0); Hematocrit 23.9 % (41.0-53.0); Lymphocytes % (auto) 10.3 % (10.0-50.0); Mean Corpuscular Hemoglobin 29.6 pg (28.0-32.0); Mean Corpuscular Hgb Conc. 33.4 g/dL (32.0-36.0); Mean Corpuscular Volume 88.6 fL (80.0-100.0); Monocytes # (auto) 0.9 10 ^3/uL (0-1.3); Monocytes % (auto) 16.6 % (0.0-12.0); Neutrophils % (auto) 66.6 % (37.0-80.0); Platelet Count (auto) 322 10^3/uL (140-450); Red Blood Cells 2.69 10^6/uL (4.5-5.90); White Blood Cell 5.4 10^3/uL (4.4-10.8)
[2020-03-27 08:48] LABS: BUN/Creatinine Ratio 8.1; Calcium 7.6 mg/dL (8.5-10.1); Potassium 3.3 mmol/L (3.5-5.1)
[2020-03-27 08:49] VITALS: BP 116/70
[2020-03-27] MEDS ORDERED: POTASSIUM CHL 20 Meq TABLET PO ONE (09:00)
[2020-03-27] MEDS: METOPROLOL SUCCINATE XL 50 MG TAB PO SCH (10:16)
[2020-03-27] MEDS: AMIODARONE HCL 200 MG TAB PO SCH (10:16)
[2020-03-27] MEDS: PANTOPRAZOLE 40 MG/10 ML VIAL INJ IV SCH ×2 (10:16→22:26)
[2020-03-27 12:35] VITALS: BP 114/76
--- NOTE | 2020-03-27 12:55 | NUR ---
Nutrition consult/assessment Note please see attached link for complete assessment Est energy needs BW [id number] kcal (25-30 kcal/kg BW) Est protein needs: 75-97 g (1-1.3g/kg BW r/t severe hypoalb) Will monitor and reassess prn. Addendum: 03/27/20 at [address] Amended: Links added.
--- NOTE | 2020-03-27 13:00 | NUR ---
SURGICAL CONSULT SPOKE WITH DR Bharati HEATON OVER THE PHONE. MD WILL NOT BE IN SINCE PATIENT IS POSITIVE COVID. SURGICAL WOUND DESCRIBED TO MD. PER DR HEATON THERE SHOULD NOT BE ANYTHING PACKED IN THE INCISION AND TO CHANGE DRY DRESSING DAILY. WILL CARRY OUT AND CONTINUE CARE.
--- NOTE | 2020-03-27 14:41 | NUR ---
WOUND CARE WOUND CARE PROVIDED PER DR HEATON'S ORDERS. OLD ADHERENT PACKING GENTLY REMOVED FROM UNAPPROXIMATED AREAS OF INCISION. WOUND CLEANSED WITH WOUND CLEANSER AND PAT DRY WITH STERILE GAUZE. PRIMAPORE DRESSING PLACED OVER INCISION. PATIENT TOLERATED WELL. WILL CONTINUE CARE.
[2020-03-27 17:00] VITALS: BP 97/59
[2020-03-27] MEDS: LATANOPROST 0.005 % OPTH(EYE) SOL 2.5ML EACHEYE SCH (17:31)
[2020-03-27 22:00] VITALS: BP 113/62
--- NOTE | 2020-03-28 03:20 | NUR ---
Rounds Patient asleep right now with no SOb seen ad no acute distress. Will continue to monitor patient.
[2020-03-28 05:29] VITALS: BP 114/73
[2020-03-28] MEDS: PIPERACILLIN-TAZOB 3.375GM 100 ML IV SCH ×3 (05:36→21:26)
[2020-03-28] MEDS: VANCOMYCIN HCL 125MG/5ML ORAL SOL PO SCH ×4 (05:36→21:26)
--- NOTE | 2020-03-28 06:00 | NUR ---
PATIENT HAD A BM. CLEANED PATIENT. TOLERATED WELL.
[2020-03-28] MEDS: ALBUTEROL SULF HFA 90MCG INH 200DOSE IN SCH (06:02)
[2020-03-28] MEDS: BUDESONIDE (INHALATION) 180 MCG IH IN SCH ×2 (06:02→19:37)
[2020-03-28 06:08] LABS: Basophils # (auto) 0 10 ^3/uL (0-0.2); Basophils % (auto) 0.3 % (0.0-2.0); Eosinophils # (auto) 0.4 10 ^3/uL (0-0.8); Eosinophils % (auto) 5.6 % (0.0-7.0); Hematocrit 24.5 % (41.0-53.0); Hemoglobin 8.2 g/dL (13.5-17.5); Lymphocytes # (auto) 0.5 10 ^3/uL (0.4-5.4); Lymphocytes % (auto) 7.7 % (10.0-50.0); Mean Corpuscular Hemoglobin 29.7 pg (28.0-32.0); Mean Corpuscular Hgb Conc. 33.5 g/dL (32.0-36.0); Mean Corpuscular Volume 88.7 fL (80.0-100.0); Monocytes % (auto) 14.8 % (0.0-12.0); Neutrophils # (auto) 4.8 10 ^3/uL (1.6-8.6); Neutrophils % (auto) 71.6 % (37.0-80.0); Nucleated Red Blood Cells % 0.2 %; Platelet Count (auto) 321 10^3/uL (140-450); Red Blood Cells 2.76 10^6/uL (4.5-5.90); Red Cell Distribution Width 17.8 % (11.8-14.3); White Blood Cell 6.7 10^3/uL (4.4-10.8)
[2020-03-28 06:13] LABS: Potassium 3.6 mmol/L (3.5-5.1)
[2020-03-28 06:19] LABS: BUN/Creatinine Ratio 7.7; Calcium 7.2 mg/dL (8.5-10.1); Magnesium 1.9 mg/dL (1.6-2.6)
[2020-03-28] MEDS: SUCRALFATE 1 GM/10 ML ORAL SUSP PO SCH ×4 (06:27→21:27)
--- NOTE | 2020-03-28 07:01 | NUR ---
CLOSING SHIFT REPORT Assumed care of patient, resting in bed. No S/S of distress/SOB or pain. Patient is on 2L nasal cannula. Bed is locked and in lowest position. bed alarm on, side rails up x2. Call light within reach.
--- NOTE | 2020-03-28 07:50 | NUR ---
OPENING SHIFT NOTE: PATIENT RESTING IN BED, ASLEEP EASILY AWOKEN TO VOICE. A/OX4, RESPIRATIONS EVEN AND UNLABORED ON 2LNC. PATIENT UPDATED ON PLAN OF CARE, NO CURRENT COMPLAINTS, VERBALIZED UNDERSTANDING. FALL PRECAUTIONS IN PLACE, CALL LIGHT WITHIN REACH WILL CONTINUE TO MONITOR.
[2020-03-28 08:45] VITALS: BP 128/68
[2020-03-28] MEDS: METOPROLOL SUCCINATE XL 50 MG TAB PO SCH (10:36)
[2020-03-28] MEDS: PANTOPRAZOLE 40 MG/10 ML VIAL INJ IV SCH ×2 (10:36→21:26)
[2020-03-28] MEDS: AMIODARONE HCL 200 MG TAB PO SCH (10:37)
[2020-03-28] MEDS: guaiFENesin-DM 100/10mg/5ml SYR PO PRN ×2 (10:38→21:27)
--- NOTE | 2020-03-28 11:00 | NUR ---
EDEMA: PATIENT NOTED TO HAVE BILATERAL ANKLE EDEMA +3 AND LEFT ELBOW/UPPER EXTREMITY PITTING EDEMA +3. PER PATIENT HE DOES NOT LIKE TO TAKE LASIX BECAUSE "IT KEEPS ME UP ALL THROUGH THE NIGHT, EVEN IF I TAKE IT IN THE DAY." EXPLAINED MEDICATIONS AND BENEFITS, WILL CONTINUE TO MONITOR AND INFORM PRIMARY MD DR. DOMINGUEZ.
[2020-03-28 13:00] VITALS: BP 115/65
[2020-03-28 16:48] VITALS: BP 129/72
--- NOTE | 2020-03-28 17:06 | NUR ---
PATIENT UP IN CHAIR. PHYSICAL THERAPY AT BEDSIDE. PATIENT PLACED ON 2LN FROM 1LNC.
[2020-03-28] MEDS: LATANOPROST 0.005 % OPTH(EYE) SOL 2.5ML EACHEYE SCH (18:39)
[2020-03-28] MEDS: ALBUTEROL SULF HFA 90MCG INH 200DOSE IN PRN (19:37)
[2020-03-28 22:00] VITALS: BP 126/78
[2020-03-28] MEDS: CHOLESTYRAMINE 4 GM POWDER GT SCH (22:48)
--- NOTE | 2020-03-28 23:03 | NUR ---
sent an in house covid swab to the lab.
[2020-03-29 05:00] VITALS: BP 144/78
--- NOTE | 2020-03-29 05:00 | NUR ---
Patient had a bm. cleaned. patient tolerated. denies any pain and no sob seen.
[2020-03-29] MEDS: PIPERACILLIN-TAZOB 3.375GM 100 ML IV SCH ×3 (06:17→22:59)
[2020-03-29] MEDS: VANCOMYCIN HCL 125MG/5ML ORAL SOL PO SCH ×4 (06:17→23:22)
[2020-03-29] MEDS: SUCRALFATE 1 GM/10 ML ORAL SUSP PO SCH ×4 (06:18→22:59)
[2020-03-29 06:28] LABS: Basophils # (auto) 0 10 ^3/uL (0-0.2); Basophils % (auto) 0.4 % (0.0-2.0); Eosinophils # (auto) 0.3 10 ^3/uL (0-0.8); Eosinophils % (auto) 4.4 % (0.0-7.0); Hematocrit 26.2 % (41.0-53.0); Hemoglobin 8.5 g/dL (13.5-17.5); Lymphocytes # (auto) 0.5 10 ^3/uL (0.4-5.4); Lymphocytes % (auto) 5.9 % (10.0-50.0); Mean Corpuscular Hemoglobin 29.1 pg (28.0-32.0); Mean Corpuscular Hgb Conc. 32.6 g/dL (32.0-36.0); Mean Corpuscular Volume 89.2 fL (80.0-100.0); Monocytes # (auto) 0.8 10 ^3/uL (0-1.3); Monocytes % (auto) 10.5 % (0.0-12.0); Neutrophils # (auto) 6.1 10 ^3/uL (1.6-8.6); Neutrophils % (auto) 78.8 % (37.0-80.0); Platelet Count (auto) 339 10^3/uL (140-450); Red Blood Cells 2.93 10^6/uL (4.5-5.90); White Blood Cell 7.7 10^3/uL (4.4-10.8)
[2020-03-29 06:32] LABS: Calcium 7.6 mg/dL (8.5-10.1); Potassium 3.6 mmol/L (3.5-5.1)
[2020-03-29 06:35] LABS: Magnesium 1.9 mg/dL (1.6-2.6); Phosphorus 1.5 mg/dL (2.5-4.90)
[2020-03-29] MEDS: BUDESONIDE (INHALATION) 180 MCG IH IN SCH ×2 (06:40→22:47)
[2020-03-29] MEDS: ALBUTEROL SULF HFA 90MCG INH 200DOSE IN PRN (06:40)
--- NOTE | 2020-03-29 07:10 | NUR ---
OPENING SHIFT NOTE ASSUMED CARE OF PATIENT, A/OX4, RESPIRATIONS EVEN AND UNLABORED ON 2L NC. PATIENT UPDATED ON POC, NO CURRENT COMPLAINTS OF PAIN. FALL PRECAUTIONS IN PLACE, BED LOCKED IN LOWEST POSITION, CALL LIGHT WITHIN REACH. WILL CONTINUE TO MONITOR.
[2020-03-29 08:12] VITALS: BP 122/76
[2020-03-29] MEDS: PANTOPRAZOLE 40 MG/10 ML VIAL INJ IV SCH ×2 (09:59→22:59)
[2020-03-29] MEDS: AMIODARONE HCL 200 MG TAB PO SCH (09:59)
[2020-03-29] MEDS: METOPROLOL SUCCINATE XL 50 MG TAB PO SCH (10:00)
--- NOTE | 2020-03-29 11:30 | NUR ---
MEDICATION HELD PER MEDICATION LADI, 1130 CARAFATE HELD TO MINIMIZE DRUG INTERACTIONS.
[2020-03-29] MEDS: CHOLESTYRAMINE 4 GM POWDER GT SCH ×2 (11:34→23:03)
[2020-03-29 14:24] VITALS: BP 106/71
[2020-03-29] MEDS ORDERED: POTASSIUM PHOSPHATE 22 MEQ in SODIUM CHL 0.9% 100 ML IV ONE (14:30)
--- NOTE | 2020-03-29 16:49 | NUR ---
I called [facility] [phone] and spoke with Georgiana to let her know that [facility] will not accept patient due to C. Diff+, and that [facility] is not accepting any new patients right now. I asked Georgiana for other facilities to reach out to-she said if [facility] is not able to accept the patient, then we need to call [facility] and they will let us know which other facilities [place] that we can reach out to. She provided me with [facility] authorization number [id number]. I called [facility] ([phone]) and spoke with Júnior, placed patient on will call pending transfer to SNF.
[2020-03-29 17:00] VITALS: BP 126/65
--- NOTE | 2020-03-29 17:35 | NUR ---
Apple elkins decline patient, faxed documents to [facility] spoke with Zara, stated that [facility] has no beds available
[2020-03-29] MEDS: NEUTRA-PHOS TABLET PO SCH (17:42)
[2020-03-29] MEDS: LATANOPROST 0.005 % OPTH(EYE) SOL 2.5ML EACHEYE SCH (17:43)
--- NOTE | 2020-03-29 19:16 | NUR ---
Opening Shift Note Assumed care of patient, awake, alert and oriented to self and time. Patient on 2L of oxygen via NC with even and unlabored respirations, no S/S of distress/SOB or pain. Patient able to turn in bed independently, bed in lowest locked position, side rails up x2, and call light within reach. Instructed on POC and to call for assist PRN, will continue to monitor for changes Q1hr and PRN. Addendum: 03/30/20 at 0517 by DOROTHY FERRER RN RN PATIENT ALERT AND ORIENTED X4.
[2020-03-29] MEDS: guaiFENesin-DM 100/10mg/5ml SYR PO PRN (20:18)
[2020-03-29 22:15] VITALS: BP 116/72
[2020-03-29] MEDS: LORazepam 2MG/ML-1ML VIAL IV PRN (23:23)
[2020-03-30] MEDS: ALBUTEROL SULF HFA 90MCG INH 200DOSE IN PRN ×3 (01:01→20:21)
[2020-03-30 05:06] VITALS: BP 148/75
[2020-03-30] MEDS: VANCOMYCIN HCL 125MG/5ML ORAL SOL PO SCH ×4 (06:10→22:07)
[2020-03-30] MEDS: PIPERACILLIN-TAZOB 3.375GM 100 ML IV SCH ×3 (06:10→22:08)
[2020-03-30 06:21] LABS: Basophils # (auto) 0 10 ^3/uL (0-0.2); Basophils % (auto) 0.3 % (0.0-2.0); Eosinophils # (auto) 0.3 10 ^3/uL (0-0.8); Eosinophils % (auto) 3.6 % (0.0-7.0); Hematocrit 26.3 % (41.0-53.0); Hemoglobin 8.9 g/dL (13.5-17.5); Lymphocytes # (auto) 0.6 10 ^3/uL (0.4-5.4); Lymphocytes % (auto) 5.7 % (10.0-50.0); Mean Corpuscular Hemoglobin 30.2 pg (28.0-32.0); Mean Corpuscular Volume 88.8 fL (80.0-100.0); Monocytes % (auto) 9.9 % (0.0-12.0); Neutrophils # (auto) 7.8 10 ^3/uL (1.6-8.6); Neutrophils % (auto) 80.5 % (37.0-80.0); Platelet Count (auto) 375 10^3/uL (140-450); Red Blood Cells 2.96 10^6/uL (4.5-5.90); Red Cell Distribution Width 17.7 % (11.8-14.3); White Blood Cell 9.7 10^3/uL (4.4-10.8)
[2020-03-30 06:41] LABS: BUN/Creatinine Ratio 7.5; Calcium 7.7 mg/dL (8.5-10.1); Phosphorus 2.9 mg/dL (2.5-4.90); Potassium 3.4 mmol/L (3.5-5.1)
[2020-03-30] MEDS: BUDESONIDE (INHALATION) 180 MCG IH IN SCH ×2 (06:42→20:21)
[2020-03-30 08:00] VITALS: BP 115/76
[2020-03-30] MEDS: SUCRALFATE 1 GM/10 ML ORAL SUSP PO SCH ×4 (09:46→22:07)
[2020-03-30] MEDS ORDERED: POTASSIUM CHL 20 Meq TABLET PO ONE (10:45)
--- NOTE | 2020-03-30 11:00 | NUR ---
PATIENT ON ROOM AIR USING 2LNC PRN. WILL CONTINUE TO MONITOR.
[2020-03-30] MEDS: NEUTRA-PHOS TABLET PO SCH ×3 (11:49→18:57)
[2020-03-30] MEDS: PANTOPRAZOLE 40 MG/10 ML VIAL INJ IV SCH ×2 (11:49→22:07)
[2020-03-30] MEDS: AMIODARONE HCL 200 MG TAB PO SCH (11:49)
[2020-03-30] MEDS: METOPROLOL SUCCINATE XL 50 MG TAB PO SCH (11:50)
[2020-03-30] MEDS: CHOLESTYRAMINE 4 GM POWDER GT SCH ×2 (11:50→23:16)
[2020-03-30 12:00] VITALS: BP 122/75
--- NOTE | 2020-03-30 12:50 | NUR ---
Nutrition Followup Note Wt 82.8kg Pt is covid positive in covid isolation. Pt with no new distress, breathing on supplemental oxygen. Pt is currently awaiting placement at a SNF per MD note. Pt appetite appears to be good aeb pt with an avg po intake of 83% per Rn note Est energy needs BW [id number] kcal (25-30 kcal/kg BW) Est protein needs: 75-97 g (1-1.3g/kg BW r/t severe hypoalb) Will monitor and reassess prn. Labs: Ca 7.7L, Alb 1.8L BM: Pt with 3 BMs / per Rn note Skin: BS 15 mod risk, full details in post acute care nurse note. PES: Altered nutrition related lab values r.t current chronic medical condition aeb severe hypoalb Comments: 1) consider low lactose along with current diet 2) consider prostat 1 packet bid 3) continue current plan foc are Expected Outcomes/Goals: pt will have better healing wounds pt will have improved labs f/u 3-5 days
--- NOTE | 2020-03-30 12:50 | NUR ---
OPTICAL ENGINEER ROAD MIXER OPERATOR: PER LAKISHA CUI OPTICAL ENGINEER SW SHE IS GOING TO SUBMIT MORE PAPERWORK FOR OTHER FACILITIES FOR BED ACCEPTANCE.
[2020-03-30] MEDS: guaiFENesin-DM 100/10mg/5ml SYR PO PRN ×2 (15:56→20:12)
--- NOTE | 2020-03-30 16:08 | NUR ---
PATIENT ABLE TO PRONE IN BED AFTER AMBULATING AROUND UNIT PER PHYSICAL THERAPIST JESSEE.
[2020-03-30 17:00] VITALS: BP 131/74
--- NOTE | 2020-03-30 17:52 | NUR ---
WOUND CARE PERFORMED. ABDOMINAL INCISION UNAPPROXIMATED DRESSING CHANGED, CDI.
[2020-03-30] MEDS: LATANOPROST 0.005 % OPTH(EYE) SOL 2.5ML EACHEYE SCH (18:57)
--- NOTE | 2020-03-30 19:10 | NUR ---
Opening Shift Note Assumed care of patient, awake, alert and oriented x4, on room air with even and unlabored respirations, no S/S of distress/SOB or pain. Patient able to turn in bed independently, bed in lowest locked position, side rails up x2, and call light within reach. Instructed on POC and to call for assist PRN, will continue to monitor for changes Q1hr and PRN.
[2020-03-30 22:00] VITALS: BP 161/76
[2020-03-30] MEDS: LORazepam 2MG/ML-1ML VIAL IV PRN (23:17)
[2020-03-31 05:00] VITALS: BP 157/86
[2020-03-31] MEDS: VANCOMYCIN HCL 125MG/5ML ORAL SOL PO SCH ×4 (06:13→22:36)
[2020-03-31] MEDS: PIPERACILLIN-TAZOB 3.375GM 100 ML IV SCH ×3 (06:13→22:36)
[2020-03-31] MEDS: BUDESONIDE (INHALATION) 180 MCG IH IN SCH (06:55)
[2020-03-31] MEDS: SUCRALFATE 1 GM/10 ML ORAL SUSP PO SCH ×4 (07:12→22:37)
[2020-03-31 07:32] LABS: Potassium 3.9 mmol/L (3.5-5.1)
[2020-03-31 07:34] LABS: Calcium 7.8 mg/dL (8.5-10.1)
[2020-03-31 07:35] LABS: BUN/Creatinine Ratio 6.7
[2020-03-31] MEDS: NEUTRA-PHOS TABLET PO SCH ×3 (09:03→18:07)
[2020-03-31] MEDS: PANTOPRAZOLE 40 MG/10 ML VIAL INJ IV SCH ×2 (09:03→22:37)
--- NOTE | 2020-03-31 09:25 | NUR ---
[place] [facility] [phone], about the patietn going to a SNF and ask if she would help with calling facilities down the [place], stated from looking at the notes the patient is a/o, and was able to walk 150 feet and did not meet SNF requirements, Called the Manda RN, and ask her to speak with Dr Dumont regarding this matter.
[2020-03-31] MEDS: AMIODARONE HCL 200 MG TAB PO SCH (09:36)
[2020-03-31] MEDS: METOPROLOL SUCCINATE XL 50 MG TAB PO SCH (09:36)
--- NOTE | 2020-03-31 10:45 | NUR ---
[place] clinical [place] [facility] [phone]. Explain to her that per the nurse Dr Dumont wants the patient to go to a SNF, not home, Stated she is going to call DR. Dumont
[2020-03-31] MEDS: CHOLESTYRAMINE 4 GM POWDER GT SCH ×2 (12:05→22:37)
[2020-03-31 13:00] VITALS: BP 121/69
[2020-03-31 17:00] VITALS: BP 123/68
[2020-03-31] MEDS: guaiFENesin-DM 100/10mg/5ml SYR PO PRN ×2 (17:18→22:37)
[2020-03-31] MEDS: LATANOPROST 0.005 % OPTH(EYE) SOL 2.5ML EACHEYE SCH (18:07)
--- NOTE | 2020-03-31 18:32 | NUR ---
NO BM SINCE C.DIFF REPEAT ORDER, WILL ENDORSE TO NOC RAZA.
--- NOTE | 2020-03-31 20:56 | NUR ---
Patient had bowel movement. Sample taken and sent to lab for C. Diff test.
[2020-03-31 22:00] VITALS: BP 133/64
[2020-03-31] MEDS: LORazepam 2MG/ML-1ML VIAL IV PRN (23:14)
[2020-04-01] MEDS: BUDESONIDE (INHALATION) 180 MCG IH IN SCH ×3 (01:37→18:52)
[2020-04-01] MEDS: ALBUTEROL SULF HFA 90MCG INH 200DOSE IN PRN ×2 (01:38→18:52)
[2020-04-01 05:00] VITALS: BP 126/75
[2020-04-01] MEDS: VANCOMYCIN HCL 125MG/5ML ORAL SOL PO SCH ×4 (06:39→21:17)
[2020-04-01] MEDS: PIPERACILLIN-TAZOB 3.375GM 100 ML IV SCH (06:39)
[2020-04-01] MEDS: SUCRALFATE 1 GM/10 ML ORAL SUSP PO SCH ×4 (06:40→21:17)
[2020-04-01 07:22] LABS: Potassium 3.6 mmol/L (3.5-5.1)
[2020-04-01 07:32] LABS: BUN/Creatinine Ratio 6.8; Calcium 7.6 mg/dL (8.5-10.1)
--- NOTE | 2020-04-01 07:47 | NUR ---
IN HOUSE COVID SWAB WALKED TO LAB BY RN.
[2020-04-01 08:00] VITALS: BP 127/70
[2020-04-01] MEDS: NEUTRA-PHOS TABLET PO SCH ×3 (08:31→17:38)
[2020-04-01] MEDS: CHOLESTYRAMINE 4 GM POWDER GT SCH ×2 (10:07→22:19)
[2020-04-01] MEDS: guaiFENesin-DM 100/10mg/5ml SYR PO PRN ×2 (10:08→19:56)
[2020-04-01] MEDS: AMIODARONE HCL 200 MG TAB PO SCH (10:08)
[2020-04-01] MEDS: PANTOPRAZOLE 40 MG/10 ML VIAL INJ IV SCH ×2 (10:08→21:17)
[2020-04-01] MEDS: METOPROLOL SUCCINATE XL 50 MG TAB PO SCH (10:09)
--- NOTE | 2020-04-01 10:36 | NUR ---
DR. DOMINGUEZ IN TO SEE PT.
--- NOTE | 2020-04-01 10:53 | NUR ---
PER DR. CORTEZ-- SPOKE TO DR. María HEATON REGARDING MIDLINE ABDOMINAL INCISION. DR. HEATON WILL COME EVALUATE PT.
--- NOTE | 2020-04-01 11:30 | NUR ---
DR. DOMINGUEZ MADE AWARE OF ATTEMPTS TO CONTACT FAMILY FOR DISCHARGE PLANS TO RETURN HOME. UNABLE TO CONTACT FAMILY. PT WANTS TO RETURN HOME.
--- NOTE | 2020-04-01 11:49 | NUR ---
I faxed home health order to [facility]-I called [facility] and spoke with Fouzia-she said to send it to [facility] and [facility]. I faxed home health order to [facility] and oxygen order to [facility]. Per Fouzia she will send authorization to both agencies.
[2020-04-01 11:59] VITALS: BP 142/85
--- NOTE | 2020-04-01 12:10 | NUR ---
VARSHA STATES- SHE HAS ADVANCED AGE AND SHE DOES NOT WANT TO ACQUIRE COVID-19. SHE PREFERS PT TO GO TO REHAB FACILITY. DR. DOMINGUEZ AND CM (PETE) MADE AWARE OF STATUS. PER MD DOMINGUEZ- CONTACT CM AND CONTINUE WITH SNF PLACEMENT ORDERS. \WILL CONTINUE TO MONITOR.
--- NOTE | 2020-04-01 14:21 | NUR ---
I spoke with Nurse Leandro and let him know that patient needs charted room air saturation of 88% or less to qualify for home oxygen (per Fouzia at [facility] Per Leandro patient's stated she can not take him home while he is COVID +. I called patient's Kristen [phone] and she said she is very concerned about him coming home with being COVID + and that she can not take care of him. I let her know that there were no SNF beds available in the area and she said she would be okay with a SNF bed down the hill. I also let her know that physical therapy is recommending home physical therapy because he is walking over 150 feet and is not qualifying for SNF placement. I called [facility] to speak with Merchandise Planning Manager Fouzia to make her aware of 's concerns, she will give me a call back. I did let know that there is an order for him to come home with oxygen and that she would be taught how to use the set-up.
--- NOTE | 2020-04-01 15:07 | NUR ---
STEPHANIE ALICEA) MADE AWARE OF SNF PLACEMENT REQUEST PER MD.
--- NOTE | 2020-04-01 15:51 | NUR ---
I called [facility] Professor Of Forestry Fouzia and made her aware of SNF order. When I requested her assistance in finding an accepting SNF, she said she does not have time to help me and faxed me a list of their participating providers down the hill. I faxed SNF order/clinical packet to [facility], [facility], [facility], [facility] and [facility].
[2020-04-01 17:00] VITALS: BP 134/74
[2020-04-01] MEDS: LATANOPROST 0.005 % OPTH(EYE) SOL 2.5ML EACHEYE SCH (17:38)
--- NOTE | 2020-04-01 19:00 | NUR ---
Opening Shift Note Assumed care of patient, awake and alert. No S/S of pain, patient c/o cough that is worsening and irritating, medications to be given per protocol. Instructed on POC and to call for assist PRN, will continue to monitor for changes Q1hr and PRN. Patient in the lowest possible position with call light within reach.
[2020-04-01 20:00] VITALS: BP 120/74
[2020-04-01 22:00] VITALS: BP 120/74
[2020-04-01] MEDS: LORazepam 2MG/ML-1ML VIAL IV PRN (22:19)
[2020-04-02 05:00] VITALS: BP 149/79
[2020-04-02] MEDS: VANCOMYCIN HCL 125MG/5ML ORAL SOL PO SCH ×3 (05:54→17:05)
[2020-04-02] MEDS: SUCRALFATE 1 GM/10 ML ORAL SUSP PO SCH ×3 (06:00→17:05)
[2020-04-02] MEDS: ALBUTEROL SULF HFA 90MCG INH 200DOSE IN PRN (06:53)
[2020-04-02] MEDS: BUDESONIDE (INHALATION) 180 MCG IH IN SCH (07:02)
[2020-04-02] MEDS: NEUTRA-PHOS TABLET PO SCH ×3 (09:00→17:06)
[2020-04-02 09:21] VITALS: BP 145/80
--- NOTE | 2020-04-02 09:41 | NUR ---
I called [facility] [phone] and was told they can not accept any more COVID + patients at this time. I called [facility] [phone] and was told that someone in admissions would call me back regarding bed availability. I called [facility] [phone] and spoke with [id number] clinical information as requested-she will review it and call me back about bed availability. [phone] and left message for Blanka in Admitting to call me back regarding bed availability. I called [facility] [phone] and spoke with Edna, she will check bed availability and give me a call back.
--- NOTE | 2020-04-02 10:08 | NUR ---
I faxed SNF packet to [facility], [facility], [facility], [facility] [place], [facility], [facility] and [facility].
[2020-04-02] MEDS: PANTOPRAZOLE 40 MG/10 ML VIAL INJ IV SCH (10:24)
[2020-04-02] MEDS: METOPROLOL SUCCINATE XL 50 MG TAB PO SCH (10:25)
[2020-04-02] MEDS: AMIODARONE HCL 200 MG TAB PO SCH (10:25)
[2020-04-02] MEDS: CHOLESTYRAMINE 4 GM POWDER GT SCH (10:25)
--- NOTE | 2020-04-02 11:00 | NUR ---
WOUND CARE NOTE: PATIENT WILL BE TRANSFERRING TO SNF THIS PM. DISCHARGE PHOTO TAKEN FOR REFERENCE AT THIS TIME OF PATIENT'S SACRUM/BUTTOCKS. PATIENT'S MASD LOOKS MUCH IMPROVED. WOUND PHOTO TAKEN. PATIENT REPOSITIONED HIMSELF. CURRENT DOT SCORE IS 16. WILL CONTINUE TO MONITOR UNTIL DISCHARGE.
--- NOTE | 2020-04-02 12:00 | NUR ---
DR. HEATON PAGED FOR ABDOMINAL INCISION STATUS. (AZAR REMOVAL). DR. DOMINGUEZ MADE AWARE.
[2020-04-02 13:00] VITALS: BP 137/86
--- NOTE | 2020-04-02 13:59 | NUR ---
Nutrition Followup Note Wt 83.2 kg Pt is COVID positive in isolation. Pt is with a Cardiac 2gNa diet, appetite is fair aeb ave 69% x4 PO intake per RN doc. Per notes, pt diarrhea is improving, pt is with no s/s of distress or pain. Est energy needs BW [id number] kcal (25-30 kcal/kg BW) Est protein needs: 75-97 g (1-1.3g/kg BW r/t severe hypoalb) Will monitor and reassess prn. Labs: Ca 7.6L, Alb 1.8L BM: Pt with 1 BM on 04/01 per RN note Skin: BS 16 mod risk, full details in insurance healthcare consultant note. PES: Altered nutrition related lab values r.t current chronic medical condition aeb severe hypoalb Comments: 1) consider low lactose along with current diet 2) consider prostat 1 packet bid 3) continue current plan of care
--- NOTE | 2020-04-02 14:00 | NUR ---
PER DR. María HEATON- TO REPLACE ABDOMINAL INCISION DRESSING AND APPLY ABD BINDER. DRESSING CHANGED (ISLAND DRESSING) AND ABDOMINAL BINDER APPLIED. CALL LIGHT WITHIN REACH.
--- NOTE | 2020-04-02 14:25 | NUR ---
I received a call from Iliana at [facility] letting me know that they can accept this patient pending authorization from [facility]. I called [facility] and spoke with Stiff Leg Operator Fouzia and made her aware-faxed her most recent order for SNF-she will forward it to her SNF team and she will call me back with authorization number. I called [facility] and they remain on will call pending bed assignment at [facility].
--- NOTE | 2020-04-02 15:33 | NUR ---
I called [facility] Community Sports Coordinator Fouzia to request an update on the authorization for [facility], she said she will call her SNF team and give me a call back.
--- NOTE | 2020-04-02 16:02 | NUR ---
I spoke with Tyra from [facility] (authorization number from Fouzia at [facility] is [id number]), patient will be going to room 203 bed 2, Dr. Hughes to follow, nurse to call report to [phone]. I called [facility] and spoke with Peter-fruit or nut picker time to transfer to [facility] is 1800-I relayed this information to nurse Reeves.
--- NOTE | 2020-04-02 16:11 | NUR ---
REPORT GIVEN TO ORLIN PERSON AT [facility]. ALL QUESTIONS AND CONCERNS ADDRESSED.
--- NOTE | 2020-04-02 16:12 | NUR ---
I spoke with patient's Kristen and made her aware that he will be going to [facility] at 1800 today-all questions answered.
[2020-04-02] MEDS: LATANOPROST 0.005 % OPTH(EYE) SOL 2.5ML EACHEYE SCH (17:05)
[2020-04-02 17:26] VITALS: BP 137/78
--- NOTE | 2020-04-02 19:09 | NUR ---
TRANSFER ORDERS PROVIDED TO PT. PT VERBALIZED UNDERSTANDING FOR TRANSFER. IV CATHETER TO [facility] ([facility]) DC'D CATHETER INTACT.
--- NOTE | 2020-04-02 19:10 | NUR ---
IV catheter dc'd to [facility]. catheter intact, no phlebitis. tele box removed and returned to tele dept. transport safely transported pt out of unit via gurney. no s/s of distress.
== END 2020-04-02 19:00 | DRG 177 ==
LOC: ER 13:27 → EDUNIT# 13:27 → EDBD 13:27 → TELE 13:28 → TELE-EAST 03-26 23:49
PROVIDERS: ADMIT Family Medicine; ATTEND Internal Medicine
PROC: 30233N1 Transfusion of Nonautologous Red Blood Cells into Peripheral Vein, Percutaneous Approach (ICD-10-PCS; principal; 2020-03-24)
DX: U07.1 COVID-19 (principal); J12.89 Other viral pneumonia; J96.01 Acute respiratory failure with hypoxia; K92.2 Gastrointestinal hemorrhage, unspecified; J98.11 Atelectasis; A04.72 Enterocolitis due to Clostridium difficile, not specified as recurrent; J44.0 Chronic obstructive pulmonary disease with (acute) lower respiratory infection; D62 Acute posthemorrhagic anemia; I10 Essential (primary) hypertension; E86.0 Dehydration; E78.5 Hyperlipidemia, unspecified; R77.8 Other specified abnormalities of plasma proteins; Z90.49 Acquired absence of other specified parts of digestive tract; Z28.21 Immunization not carried out because of patient refusal
CPT/HCPCS: 36415; 71045; 74176; 80048; 80053; 80069; 80202; 81001; 82728; 83036; 83605; 83615; 83735; 84100; 84443; 84484; 85014; 85018; 85025; 85379; 85610; 85730; 86141; 86850; 86900; 86901; 86920; 87040; 87081; 87426; 87493; 94640; 96365; 96375; 97110; 97116; 97163; C9113; G0378; J2001; J2543